=== PATIENT | female | born 1995 | race Caucasian/White ===

== ENCOUNTER 2016-10-21 11:19 | Emergency (ER) | payer MEDICAID ==
[~2016-10-21] VITALS: Ht 160 cm; Wt 73.5 kg
--- NOTE | 2016-10-21 11:53 | Urgent Treatment Center Report ---
History of Present Issue Date/Time Seen by Provider 10/21/16 1144 Visit Reason Pt arrived:Walked Presenting Problem:PT C/O LOWER ABD CRAMPING AND HEAVY BLEEDING. PT ADVISES THAT THE PAIN WOKE HER UP OUT OF A SLEEP LAST NIGHT Location if Accident: Onset of symptoms date/time:/ or onset unknown for:MEDICAL HX UNKNOWN Have you (or family members/close friends) recently traveled outside the [place]? N If Yes, where/when: Have you had exposure to infectious disease within the past month? TB? Other? Specify: Patient states that last night she was awoke with sharp abdominal cramping in her right lower abdomen, states that she felt a sharp pain then relief but then had some heavy bleeding. State that she feels better now still bleeding but not real heavy and now the pain is gone. States that she called Dr. Shen office OBGYN and they told her to come in here and get checked. ALLERGIES Coded Allergies: No Known Allergies (10/21/16) History Medical History General CAD? No Angina: No SC: No Hypertension? No Hyperlipidemia? No CHF? No DVT? No PE? No COPD? No Asthma? No Anemia? No GERD? No Gastric ulcers? No GI Bleed? No Hernia? No Thyroid Problems? No Hypothyroidism? No CVA? No Seizures? No Diabetes? No Renal Insuffiency? No UTI? No Stones? No BPH? No GB Disease: No Nephritic Syndrome? No Asplenia? No Hepatitis? No Sickle Cell Disease? No Arthritis? No Migraines? No Cataracts? No Glaucoma? No MRSA? No HIV? No TB? No Anxiety? No Depression? No Cancer? No More? No Immunization HX DT/Tetanus Unknown Surgical Hx Previous Surgery?N Social History Smoking Hx Smoker: Current Every Day Smoker Tobacco: Yes Type Cigarettes Alcohol Alcohol: No Review of Systems All Other Systems Reviewed and Negative Comment Last night had sharp pain in her lower abdomen, after pain hit she felt a "pop like feeling" and pain was gone and she had a little eppisode of heavy vaginal bleeding. States that she is currently menstrating at this time Physical Exam Vital Signs Vital Signs Date Time Temp Pulse Resp B/P Pulse O2 O2 Flow FiO2 Ox Delivery Rate 10/21 1135 98.3 93 18 135/86 97 General Appearance normal appearance, WD/WN, no apparent distress Respiratory Status Yes: trachea midline, chest symmetrical, non tender chest. No: respiratory distress. 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 No Results/Orders Laboratory Tests 10/21/16 1202: WBC 4.8, RBC 4.64, Hgb 15.6, Hct 45.4, MCV 97.8, RDW 13.0, Plt Count 184, MPV 6.8 L, Gran % 68.5, Gran # 3.3, Lymphocytes % 25.8, Monocytes % 3.9, Eosinophils % 1.4, Basophils % 0.3, Lymphocytes # 1.2, Monocytes # 0.2, Eosinophils # 0.1, Basophils # 0.0, PUBS MCHC 34.4, MCH 33.6 H 10/21/16 1149: Urine Color YELLOW, Urine Appearance Clear, Urine pH 6.5, Ur Specific [place] 1.015, Urine Protein NEGATIVE, Urine Ketones NEGATIVE, Urine Blood 2+ H, Urine Nitrate POSITIVE H, Urine Bilirubin NEGATIVE, Urine Urobilinogen 0.2, Ur Leukocyte Esterase NEGATIVE, Urine Glucose NEGATIVE, Urine Test NEGATIVE Orders Procedure Date/time Status CBC WITH AUTO DIFF 10/21 1202 Complete [facility] URINE 10/21 1149 Complete [facility] URINE DIPSTICK 10/21 1149 Complete Progress [facility] Progress Notes 1 Date 10/21/16 Time 1235 Comment Ua and UCG done to rule out and UTI. both negative result. Awaiting lab to assess Hemoglobin and Hematocrit. [facility] Progress Notes 2 Date 10/21/16 Time 1240 Comment Patient lab result back, Hemocult and Hematocrit within normal range, Patient advised to follow up with family doctor for possible prescribing of control to control symptoms Departure Departure Time of Disposition 1242 Disposition DC Home or Self Care(routine) Clinical Impression Primary Impression: Ovarian cyst Qualifiers: Laterality: right Qualified Code: N83.201 - Unspecified ovarian cyst, right side Condition STABLE Referrals Semaj BECKETT,Zachary Jama: Tomorrow-Call Office call for appointment if no improvement of symptoms -or increased bleeding 2-3 days Dev BECKETT,Rashad Shell Additional Instructions Follow up with family doctor Return if needed Over the counter Motrin or TYlenol as needed for pain Follow up with OBGYN as advised Discharge Counseling Counseled pt/family regarding diagnosis, test results, home care, follow up needs at [phone]
--- NOTE | 2016-10-21 11:53 | Urgent Treatment Center Report ---
History of Present Issue Date/Time Seen by Provider 10/21/16 1144 Visit Reason Pt arrived:Walked Presenting Problem:PT C/O LOWER ABD CRAMPING AND HEAVY BLEEDING. PT ADVISES THAT THE PAIN WOKE HER UP OUT OF A SLEEP LAST NIGHT Location if Accident: Onset of symptoms date/time:/ or onset unknown for:MEDICAL HX UNKNOWN Have you (or family members/close friends) recently traveled outside the [place]? N If Yes, where/when: Have you had exposure to infectious disease within the past month? TB? Other? Specify: Patient states that last night she was awoke with sharp abdominal cramping in her right lower abdomen, states that she felt a sharp pain then relief but then had some heavy bleeding. State that she feels better now still bleeding but not real heavy and now the pain is gone. States that she called Dr. Shen office OBGYN and they told her to come in here and get checked. ALLERGIES Coded Allergies: No Known Allergies (10/21/16) History Medical History General CAD? No Angina: No PR: No Hypertension? No Hyperlipidemia? No CHF? No DVT? No PE? No COPD? No Asthma? No Anemia? No GERD? No Gastric ulcers? No GI Bleed? No Hernia? No Thyroid Problems? No Hypothyroidism? No CVA? No Seizures? No Diabetes? No Renal Insuffiency? No UTI? No Stones? No BPH? No GB Disease: No Nephritic Syndrome? No Asplenia? No Hepatitis? No Sickle Cell Disease? No Arthritis? No Migraines? No Cataracts? No Glaucoma? No MRSA? No HIV? No TB? No Anxiety? No Depression? No Cancer? No More? No Immunization HX DT/Tetanus Unknown Surgical Hx Previous Surgery?N Social History Smoking Hx Smoker: Current Every Day Smoker Tobacco: Yes Type Cigarettes Alcohol Alcohol: No Review of Systems All Other Systems Reviewed and Negative Comment Last night had sharp pain in her lower abdomen, after pain hit she felt a "pop like feeling" and pain was gone and she had a little eppisode of heavy vaginal bleeding. States that she is currently menstrating at this time Physical Exam Vital Signs Vital Signs Date Time Temp Pulse Resp B/P Pulse O2 O2 Flow FiO2 Ox Delivery Rate 10/21 1135 98.3 93 18 135/86 97 General Appearance normal appearance, WD/WN, no apparent distress Respiratory Status Yes: trachea midline, chest symmetrical, non tender chest. No: respiratory distress. 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 No Results/Orders Laboratory Tests 10/21/16 1202: WBC 4.8, RBC 4.64, Hgb 15.6, Hct 45.4, MCV 97.8, RDW 13.0, Plt Count 184, MPV 6.8 L, Gran % 68.5, Gran # 3.3, Lymphocytes % 25.8, Monocytes % 3.9, Eosinophils % 1.4, Basophils % 0.3, Lymphocytes # 1.2, Monocytes # 0.2, Eosinophils # 0.1, Basophils # 0.0, PUBS MCHC 34.4, MCH 33.6 H 10/21/16 1149: Urine Color YELLOW, Urine Appearance Clear, Urine pH 6.5, Ur Specific [place] 1.015, Urine Protein NEGATIVE, Urine Ketones NEGATIVE, Urine Blood 2+ H, Urine Nitrate POSITIVE H, Urine Bilirubin NEGATIVE, Urine Urobilinogen 0.2, Ur Leukocyte Esterase NEGATIVE, Urine Glucose NEGATIVE, Urine Test NEGATIVE Orders Procedure Date/time Status CBC WITH AUTO DIFF 10/21 1202 Complete [facility] URINE 10/21 1149 Complete [facility] URINE DIPSTICK 10/21 1149 Complete Progress [facility] Progress Notes 1 Date 10/21/16 Time 1235 Comment Ua and UCG done to rule out and UTI. both negative result. Awaiting lab to assess Hemoglobin and Hematocrit. [facility] Progress Notes 2 Date 10/21/16 Time 1240 Comment Patient lab result back, Hemocult and Hematocrit within normal range, Patient advised to follow up with family doctor for possible prescribing of control to control symptoms Departure Departure Time of Disposition 1242 Disposition [place] Home or Self Care(routine) Clinical Impression Primary Impression: Ovarian cyst Qualifiers: Laterality: right Qualified Code: N83.201 - Unspecified ovarian cyst, right side Condition STABLE Referrals Semaj BECKETT,Zachary Jama: Tomorrow-Call Office call for appointment if no improvement of symptoms -or increased bleeding 2-3 days Dev BECKETT,Rashad Shell Additional Instructions Follow up with family doctor Return if needed Over the counter Motrin or TYlenol as needed for pain Follow up with OBGYN as advised Discharge Counseling Counseled pt/family regarding diagnosis, test results, home care, follow up needs at [phone]
[2016-10-21 12:14] LABS: UTC URINE PREGNANCY NEGATIVE (NEG)
[2016-10-21 12:15] LABS: URINE BILIRUBIN - DIPSTICK NEGATIVE (NEG); URINE BLOOD 2+ (NEG)
[2016-10-21 12:37] LABS: HEMOGLOBIN 15.6 g/dL (12.2-16.2); LYMPH # 1.2 K/mm3 (0.7-4.5); LYMPH % 25.8 % (10-50.0)
[2016-10-21 12:49] VITALS: BP 135/86
== END 2016-10-21 12:49 | disposition home or self-care (01) ==
LOC: UTC 11:19
PROVIDERS: Nurse Practitioner
DX: N83.201 Unspecified ovarian cyst, right side (principal)

== ENCOUNTER 2016-11-10 22:24 | Emergency (ER) | payer MEDICAID ==
[~2016-11-10] VITALS: Ht 160 cm; Wt 73.5 kg
--- OUTSIDE RECORDS SUMMARY | 2016-11-10 22:29 | External Medical Summary Rpt ---
Author Author , Organization [employer] Address Unknown Phone Unavailable Care Team Providers Care Floor Hand Name Role Phone ALINA HONEYCUTT, ALINA Unavailable Unavailable TANGELA BRANDSER, KIM A, Unavailable Unavailable BRANDSER, KIM A JUNG, DEL A, Unavailable Unavailable JUNG, DEL A [facility] Un[facility], [facility] SHAI JAM, SHAI JAM Unavailable Unavailable SHAI JAM, SHAI JAM Unavailable Unavailable BRUNA GUILHERME, Unavailable Unavailable BRUNA GUILHERME [facility] Unavailable Unavailable [place], [facility] Unavailable Unavailable [place], [facility] SOLOMONELBA GALICIA [facility]OM[facility] Unavailable Unavailable MAR KALFAS, ROBERT C, Unavailable Unavailable KALFAS, ROBERT C [facility] Un[facility], [facility] Unavailable Unavailable LAB, [facility] Unavailable Unavailable [facility], [facility] Unavailable [facility]available [facility], [facility], Unavailable Unavailable [facility], Unavailable Unavailable EDWARD MONTGOMERY JR, Unavailable Unavailable EDWARD MONTANA TRO, ROCK TRO Unavailable Unavailable KISHAN LUDWIG Unavailable Unavailable ANA MCCLELLAN, Unavailable Unavailable ANA HOLLEY MICHAEL G, Unavailable Unavailable MONICA LEI [facility], Unavailable Unavailable [facility] Unavailable Unavailable [facility] [address] [facility], [facility] Unavailable Unavailable [facility]ANS, [facility] Unavailable Unavailable [facility], [facility] [address], Unavailable Unavailable GABRIEL POLK SHELBY, Unavailable Unavailable LORIN SPEARS [facility] Unavailable Unavailable #5, [facility] Unavailable [facility]available DEPT [facility], [facility] Unavailable Unavailable [facility], [facility] Purpose Continuity of Care Document - 08-07-2007 through 2016 Problems Code Diagnosis DOS Provider Status [id number] ACUTE 05-04-2016 [facility] J029 ACUTE 05-04-2016 [facility] UNSPECIFIED R110 NAUSEA 05-04-2016 [facility] R599 ENLARGED 05-04-2016 [facility] UNSPECIFIED [id number] ENCOUNTER 03-08-2016 [facility] INITIAL [facility] N CONTRACEPTI VE UNS [id number] ENCOUNTER 03-02-2016 [place] PRESCRIPTIO [facility] N EMERGENCY CENTER CONTRACEPTI ON Z3189 ENCOUNTER 03-02-2016 [place] FOR OTHER [facility] PROCREATIVE CENTER MANAGEMENT R509 FEVER 09-16-2015 [facility] UNSPECIFIED [facility] CENTER N939 ABNORMAL 06-18-2015 [facility]FFEE GRINDER BLEEDING ST UNSPECIFIED R102 PELVIC AND 06-18-2015 ST PERINEAL [facility] PAIN [facility] [facility] 6143 ACUTE 12-25-2013 [facility] DEPT PELVIC WALLY CELLULITIS V2549 SURVEILLANC 12-25-2013 [facility] E OTH PREV [facility] PRSC [facility] DEPT CONTRACEPT WALLY METHOD 6250 DYSPAREUNIA 10-15-2013 [facility] 6149 UNSPEC 09-11-2013 [facility] INFLAM DISTRICT DISEASE FE [facility] DEPT PELVIC WALLY ORGANS&TISS UES V2689 OTHER 09-11-2013 [facility] SPECIFIED DISTRICT PROCREATIVE [facility] DEPT MANAGEMENT WALLY 7336 TIETZES 02-12-2013 [facility] 2662 OTHER 01-11-2012 JENNI LUNDY B-[facility]PLEX HE[facility] DEFICIENCIE CENTER S 2512 HYPOGLYCEMI 12-29-2011 [facility] UNSPECIFIED PHYSICIANS 7962 ELEVATED BP 12-29-2011 READING [facility] WITHOUT DX PHYSICIANS HYPERTENSIO N V2541 SURVEILLANC 10-22-2011 [facility] E PREV DISTRICT PRESCRIBED [facility] DEPT CONTRACEPT WALLY PILL 463 ACUTE 09-27-2011 TONSILLITIS [facility] 55884 UNSPECIFIED 08-17-2011 [facility] VULVOVAG[facility]I TIS 3671 MYOPIA 08-12-2011 SHAI JAM 37465 NONGONOCOCC 07-27-2011 J[facility] U[facility] DUE CHLAMYDTRAC HOMATIS V7231 ROUTINE 07-27-2011 PATHOLOGY & GYNECOLOGIC CYTOLOGY AL LAB EXAMINATION 9140 HAND NO 06-04-2011 [facility] ALONE [facility] CTR ABRAS/FRIC BURN W/O INF V2509 OT GENERAL 02-19-2011 [facility] HEALTH CNSL&ADVICE CENTER CONTRACEPT MANAGEMENT 97922 MIGRAINE 10-26-2010 ST UNSP W/O [facility] INTRACT W/O PHYSICIANS STATUS MIGRAINOSUS 4619 ACUTE 09-04-2010 SINUSITIS, [facility] UNSPECIFIED PHYSICIANS 5589 OTH&UNSPEC 08-04-2010 NONINFECTIO [facility] US [facility]IANS GASTROENTER ITIS&COLITI S V1582 PERS HX 06-30-2010 [facility] TOBACCO USE HEALTH PRESENTING CENTER HAZARDS HEALTH V7643 SCREENING 06-30-2010 [facility] FOR HEALTH MALIGNANT CENTER NEOPLASM OF THE SKIN V2502 GENERAL 10-21-2009 [facility] CNSL CO HEALTH INITIATION CENTER OTH CONTRACEPT MEASURES V2501 GENERAL 02-25-2009 DHS/CO COUNSELING HEALTH PRESCRIPTIO CENTRAL N ORAL BANK ACCT CONTRACEPTS 3829 UNSPECIFIED 10-01-2008 PATIENT OTITIS FIRST [facility] MEDIA 74884 UNSPECIFIED 09-17-2008 PATIENT INFECTIVE [facility] OTITIS EXTERNA 075 INFECTIOUS 06-27-2008 PATIENT MONONUCLEOS FIRST PHYS IS 7840 HEADACHE 03-06-2008 PATIENT FIRST PHYS 33824 OTHER 03-05-2008 ST SPECIFIED [facility] CARDIAC [facility] DYSRHYTHMIA S 7802 SYNCOPE AND 03-05-2008 ST COLLAPSE [facility] 60625 NONSPECIFIC 03-05-2008 ST ABNORMAL [facility] ELECTROCARD [facility] CTR IOGRAM V717 OBSERVATION 03-05-2008 ST FOR [facility] SUSPECTED MED CTR CARDIOVASCU LAR DISEASE 4659 ACUTE URIS 11-15-2007 PATIENT OF FIRST PHYS UNSPECIFIED SITE 7030 INGROWING 08-07-2007 [facility] POLK Medications Na ND Rx Da Fi Fi Am Da Di Ph RX Ph St me C No te ll ll ou ys ag ar # ys at rm s nt no ma ic us Or Da si cy ia de te s n re d OX 42 02 03 20 3 00 KE Ac YC 85 -1 -1 .0 00 NT ti OD 80 6- 7- 00 00 UC ve ON 10 20 20 87 [place] -A 30 17 17 28 CE 1 19 CV TA S AL PH NO AR PH MA EN CY 7. LL 5- C, 32 5 DB A CV S PH AR MA CY #0 54 37 CH 00 02 03 47 16 00 KE Ac LO 11 -1 -1 3. 00 NT ti RH 62 6- 7- 00 00 UC ve EX 00 20 20 0 87 [place] ID 11 17 17 28 IN 6 20 CV E S 0. PH 12 AR % MA RI CY NS E LL C, DB A CV S PH AR MA CY #0 54 37 PE 00 02 03 30 8 00 KE Ac NI 09 -1 -1 .0 00 NT ti CI 31 6- 7- 00 00 UC ve LL 17 20 20 87 [place] IN 21 17 17 28 0 21 CV VK S PH 25 AR 0 MA MG CY TA LL BL C, ET DB A CV S PH AR MA CY #0 54 37 AM 00 04 04 0 14 7 76 SC Ac OX 78 -2 -2 .0 20 RYAN ti -C 11 2- 2- 00 35 CK ve LA 83 20 20 V 12 11 11 BR 50 0 IA 0- N 12 5 MG TA BL ET TO 68 04 04 2 30 30 76 SC Ac PI 46 -1 -1 .0 16 RYAN ti RA 20 8- 8- 00 65 CK ve MA 10 20 20 TE 81 11 11 BR 0 IA 25 N MG TA BL ET PA 68 10 03 5 30 30 74 SC Ac RO 38 -2 -2 .0 61 RYAN ti XE 20 5- 5- 00 15 CK ve TI 09 20 20 NE 70 10 11 BR 6 IA HC N L 10 MG TA BL ET AM 00 02 02 0 14 7 75 SC Ac OX 78 -2 -2 .0 70 RYAN ti -C 11 5- 5- 00 10 CK ve LA 83 20 20 V 12 11 11 BR 50 0 IA 0- N 12 5 MG TA BL ET PA 68 10 01 5 30 30 74 SC Ac RO 38 -2 -0 .0 61 RYAN ti XE 20 5- 5- 00 15 CK ve TI 09 20 20 NE 70 10 11 BR 6 IA HC N L 10 MG TA BL ET PA 68 10 10 5 30 30 74 SC Ac RO 38 -2 -2 .0 61 RYAN ti XE 20 5- 7- 00 15 CK ve TI 09 20 20 NE 70 10 10 BR 6 IA HC N L 10 MG TA BL ET PA 68 10 10 0 15 15 74 SC Ac RO 38 -0 -0 .0 42 RYAN ti XE 20 5- 5- 00 78 CK ve TI 09 20 20 NE 70 10 10 BR 6 IA HC N L 10 MG TA BL ET NE 24 03 03 00 10 7 TO 66 SC Ac OM 20 -1 -2 .0 TA 78 RYAN ti YC 80 0- 6- 00 L 45 CK ve IN 63 20 20 CA -P 11 09 09 RE BR OL 0 IA YM PH N YX AR IN MA -H CY C EA #[address] AM 00 03 03 00 20 10 TO 66 SC Ac OX 09 -1 -2 .0 TA 78 RYAN ti -C 32 0- 6- 00 L 44 CK ve LA 27 20 20 CA V 43 09 09 RE BR 50 4 IA 0- PH N 12 AR 5 MA MG CY TA #5 BL ET PA 68 10 02 00 30 30 TO 65 SC Ac RO 38 -0 -2 .0 TA 48 RYAN ti XE 20 3- 6- 00 L 15 CK ve TI 09 20 20 CA NE 70 08 09 RE BR 6 IA HC PH N L AR 10 MA CY MG #5 TA BL ET PA 68 10 11 01 30 30 PH 65 SC Ac RO 38 -0 -2 .0 AR 48 RYAN ti XE 20 3- 0- 00 MC 15 CK ve TI 09 20 20 AR NE 70 08 08 E BR 6 PH IA HC AR N L MA 10 CY MG TA BL ET PA 68 10 10 00 30 30 PH 65 SC Ac RO 38 -0 -0 .0 AR 48 RYAN ti XE 20 3- 9- 00 MC 15 CK ve TI 09 20 20 AR NE 70 08 08 E BR 6 PH IA HC AR N L MA 10 CY MG TA BL ET AM 00 05 05 00 20 10 TO 64 No Ac OX 78 -0 -2 .0 TA 45 t ti IC 12 7- 2- 00 L 53 Av ve IL 61 20 20 CA ai LI 30 08 08 RE la N 5 bl 50 PH e 0 AR MG MA CY CA PS #5 UL E Results Labs Lab Lab Date Result Refere Interp Status Commen Order Detail nces retati t Range on CHLAMYDIA AND GONORRHEA TESTING (03-08-2016 09:30) Chlamyd POSITIV complet ia 016 E ed trachom 09:30 atis rRNA [Presen ce] in Unspeci fied specime n by Probe & target amplifi cation method Neisser NEGATIV complet ia 016 E ed gonorrh 09:30 oeae rRNA [Presen ce] in Unspeci fied specime n by Probe & target amplifi cation method CHLAMYDIA AND GONORRHEA TESTING (03-08-2016 09:30) COLLECT ALCIRA complet OR 016 SON ed 09:30 ETHNICI WHITE, complet TY 016 NON-HIS ed 09:30 PANIC KIT 03-08- complet EXPIRAT 016 6 ed ION 09:30 DATE SYMPTOM NO complet S 016 ed 09:30 REASON REVISIT complet FOR 016 /ANNUAL ed REQUEST 09:30 FAMILY PLANNIN G VISIT SPECIME FEMALE complet N 016 ENDOCER ed SOURCE 09:30 VICAL PREGNAN NO complet T 016 ed 09:30 CHART N/A complet NUMBER 016 ed 09:30 Chlamyd Pending complet ia 016 ed trachom 09:30 atis rRNA [Presen ce] in Unspeci fied specime n by Probe & target amplifi cation method Neisser Pending complet ia 016 ed gonorrh 09:30 oeae rRNA [Presen ce] in Unspeci fied specime n by Probe & target amplifi cation method CHLAMYDIA AND GONORRHEA TESTING (08-30-2012 09:30) Chlamyd NEGATIV complet ia 013 E ed trachom 09:30 atis rRNA [Presen ce] in Unspeci fied specime n by Probe & target amplifi cation method Neisser NEGATIV complet ia 013 E ed gonorrh 09:30 oeae rRNA [Presen ce] in Unspeci fied specime n by Probe & target amplifi cation method CHLAMYDIA AND GONORRHEA TESTING (08-30-2012 09:30) COLLECT NA complet OR 013 ed 09:30 ETHNICI 08-30- WHITE, complet TY 013 NON-HIS ed 09:30 PANIC KIT 08-30-03-10-13 complet EXPIRAT 013 ed ION 09:30 DATE SYMPTOM NO complet S 013 ed 09:30 REASON REVISIT complet FOR 013 /ANNUAL ed REQUEST 09:30 FAMILY PLANNIN G VISIT SPECIME URINE complet N 013 ed SOURCE 09:30 PREGNAN NO complet T 013 ed 09:30 CHART 08-30-2 NA complet NUMBER 013 ed 09:30 Chlamyd 08-30-2 Pending complet ia 013 ed trachom 09:30 atis rRNA [Presen ce] in Unspeci fied specime n by Probe & target amplifi cation method Neisser 08-30- Pending complet ia 013 ed gonorrh 09:30 oeae rRNA [Presen ce] in Unspeci fied specime n by Probe & target amplifi cation method Procedures Procedure DOS Code Location Performer Comment IAADIADOO 71658 COLD [facility] spring ST[facility]PT[facility]RGENT [facility]RGENT CCUS CARE CARE GROUP A WET Q0111 [facility] [facility] REUBEN 6 N CO N CO INCL PREP [facility] VAGINAL [facility] CERV/SKIN SPECIMENS IADNA 73760 [facility] [facility] CHLAMYDIA 6 N CO N CO [facility] TRACHOMAT [facility] IS AMPLIFIED PROBE TQ AMINES 92725 [place] VAGINAL 6 N CO N CO FLUID [facility] QUALITATI [facility] VE IADNA 00072 [place] P[place] NEISSERIA 6 N CO N CO [facility] GONORRHOE CENTER [place] AE AMPLIFIED PROBE TQ CONTRACEP S4993 [place] TIVE 6 N CO N CO PILLS FOR [facility] [place] CONTROL CONTRACEP S4993 P[place] TIVE 6 N CO N CO PILLS FOR [facility] CONTROL URINE 10047 [place] [facility] 6 N CO N CO TEST [facility] VISUAL [facility] COLOR CMPRSN METHS IADNA [address] NEISSERIA 5 [facility] CTR MED CTR GONORRHOE [facility] AE AMPLIFIED PROBE TQ GONADOTRO [address] [facility] QUALITATI VE COLLECTIO [address] N VENOUS 5 [facility] BLOOD MED CTR MED CTR VENIPUNCT [facility] [facility] URE IAADIADOO [address] [facility] MED CTR MED CTR [facility] [address] [facility] [facility] VAGINALIS IADNA [address] CHLAMYDIA 5 [facility] CTR MED CTR TRACHOMAT [facility] IS AMPLIFIED PROBE TQ INJECTION J1050 [facility] WALLY E ACETATE 1 MG INJECTION J1050 [facility] WALLY E ACETATE 1 MG IADNA 69342 [facility]IA [facility] DE[facility] TRACHOMAT WALLY WALLY IS AMPLIFIED PROBE TQ IADNA 76721 [facility] NEISS[facility]IA [facility] GONORRHOE WALLY WALLY AE AMPLIFIED PROBE TQ INJECTION J1050 [facility] MEDROXYPR [facility] WALLY E ACETATE 1 MG INJECTION J1050 [facility] MEDROXYPR [facility] WALLY E ACETATE 1 MG INJECTION J1050 [facility] WALLY E ACETATE 1 MG IADNA 64707 [facility] CHLAMYDIA [facility] WALLY WALLY IS AMPLIFIED PROBE TQ IADNA 06280 [facility] NEISSERIA [facility] DEPT GONORRHOE WALLY WALLY AE AMPLIFIED PROBE TQ URINE 98979 JENNI ARTEAGA 2 ON LICENSE OF [facility] HEALTH TEST CENTER CENTER VISUAL COLOR CMPRSN METHS INJ J1055 JENNI ARTEAGA MDRXYPRGE 2 ON LICENSE OF [facility] HEALTH STRON CENTER CENTER ACTAT CNTRACPT USE 150 MG CONTRACEP S4993 [facility] TIVE 2 DISTRICT DISTRICT PILLS FOR [facility] WALLY CONTROL URNLS DIP 37487 JENNI MENJIVARON 2 ON LICENSE OF [facility] HEALTH STICK/TAB CENTER CENTER LET RGNT NON-AUTO W/O MICRSCP FRAMES V2020 SHAI GARCIA PURCHASES 2 SPHERE V2100 SHAI GARCIA SINGLE 2 [place]ISION [place] +/- 4.00 PER LENS DETERMINA 58611 SHAI GARCIA TION 2 REFRACTIV E STATE OPHTH 54585 SHAI GARCIA MEDICAL 2 XM&EVAL COMPRE NEW PT 1/> VST FITTING 57013 SHAI GARCIA SPECTACLE 2 S XCPT APHAKIA MONOFOCAL LENS V2784 SHAI GARCIA POLYCARBO 2 BISI OR EQUAL ANY INDEX PER LENS WET Q0111 JENNI ARTEAGA REUBEN 2 ON LICENSE OF [facility] HEALTH INCL PREP CENTER CENTER VAGINAL CERV/SKIN SPECIMENS IADNA 37111 JENNI ARTEAGA CHLAMYDIA 2 [facility] CENTER TRACHOMAT IS AMPLIFIED PROBE TQ CYTP 00984 PATHOLOGY PICKLESIM CERV/VAG 2 & ER JR FREDA AUTO THIN CYTOLOGY LAYER LAB PREP MNL SCREEN INJ J1055 JENNI ARTEAGA MDRXYPRGE 2 ON LICENSE OF [facility] HEALTH STRON CENTER CENTER ACTAT CNTRACPT USE 150 MG ALL Q0112 JENNI ARTEAGA POTASSIUM 2 [facility] C[facility] HYDROXIDE PREPARATI ONS URNLS DIP 92684 JENNI ARTEAGA 2 ON LICENSE OF [facility] HEALTH STICK/TAB CENTER CENTER LET RGNT NON-AUTO W/O MICRSCP SMR PRIM 38732 JENNI ARTEAGA SRC WET 2 [facility] C[facility] NFCT AGT IADNA 59751 JENNI ARTEAGA NEISSERIA 2 ON LICENSE OF [facility] HEALTH [place] [facility] GONORRHOE AE AMPLIFIED PROBE TQ AMINES 03263 JENNI ARTEAGA VAGINAL 2 [facility] FLUID CENTER CENTER QUALITATI VE PH BODY 13236 JENNI ARTEAGA FLUID NOT 2 [facility] ELSEWHERE SPECIFIED INJ J1055 JENNI ARTEAGA MDRXYPRGE 1 [facility] [place] [facility] ACTAT CNTRACPT USE 150 MG INJ J1055 JENNI ARTEAGA MDRXYPRGE 1 [facility] STRON CENTER CENTER ACTAT CNTRACPT USE 150 MG INJ J1055 JENNI ART[facility]AGA MDRXYPRGE 1 [facility] ACTAT CNTRACPT USE 150 MG INJ J1055 JENNI ARTEAGA MDRXYPRGE 1 [facility] ACTAT CNTRACPT USE 150 MG INJ J1055 JENNI ARTEAGA MDRXYPRGE 0 [facility] ACTAT CNTRACPT USE 150 MG INJ J1055 [place] MDRXYPRGE 0 N CO N [facility] ACTAT CENTER [place] CNTRACPT USE 150 MG IADNA 63409 [place] P[place] NEISSERIA 0 N CO N [facility] GONORRHOE CENTER [place] AE AMPLIFIED PROBE TQ IADNA 84485 [place] CHLAMYDIA 0 N CO N [facility] TRACHOMAT CENTER [place] IS AMPLIFIED PROBE TQ INJ J1055 [place] MDRXYPRGE 0 N CO N [facility] ACTAT [facility]ENTER [place] CNTRACPT USE 150 MG INJ J1055 [place] MDRXYPRGE 0 N CO N [facility] [place] CNTRACPT USE 150 MG BLOOD 01765 [place] COUNT 0 N CO N DC HEMOGLOBI [facility] N [facility] CONTRACEP S4993 DHS/CO [facility] TIVE 9 HEALTH N CO PILL[facility] FOR [facility] BANK ACCT CENTER CONTROL CONTRACEP S4993 DHS/CO [place] TIVE 9 HEALTH N CO PILLS FOR [facility] B[facility] ACCT CENTER CONTROL COMPREHEN 57563 PATIENT KALFAS, SIVE 8 FIRST ROBERT C METABOLIC PHYS PANEL URNLS DIP [address] STICK/TAB EAST EAST LET RGNT AUTO W/O MICROSCOP Y CUL 88012 [facility] PRSMPTV [address] [place] [address] PTHGNC [facility] ORGANISM SCRN W/COLONY ESTIMJ BASIC 50714 [facility] METABOLIC [address] [place] [address] PANEL [facility] CALCIUM TOTAL BLOOD [address] COMPLETE [facility] AUTO&AUTO DIFRNTL WBC IAADIADOO [address] STREPTOCO [facility] CCUS GROUP A HETEROPHI [address] ANTIBODIE [facility] S SCREEN ECG 60894 [facility], ROUTINE 8 [facility] DEL A ECG MED CTR W/LEAST 12 LDS [place] [address] RADIOLOGY BRANDSER, HEAD/BRAI 8 KIM A N W/O ASSOCIATE CONTRAST S PSC MATERIAL Encounters Encounter Start End Date Code Location Performer Type Date OFFICE 55902 COLD OUTPATIEN 6 6 SPRING T NEW 45 URGENT MINUTES CARE PERIODIC 36484 [place] PREVENTIV 6 6 N CO N CO E MED EST [facility] PATIENT CENTER CENTER 18-39 YRS OFFICE 95065 [place] P[place] OUTPATIEN 6 6 N CO N CO T VISIT [address] CENTER MINUTES OFFICE 91637 [place] P[place] OUTPATIEN 6 6 N CO N CO T NEW 20 [facility] - 5 5 [facility] OUT[facility] MED [facility] T COFFEE [facility] [facility] EMERGENCY 46303 COMPASS BRACKEN 5 5 EMERGENCY TANGELA DEPARTMEN T VISIT PHYSICIAN MODERATE S SEVERITY EMERGENCY [address]3082 ST 5 5 [facility] DEPARTMEN MED CTR T VISIT COFFEE GRINDER ST LOW/MODER SEVERITY OFFICE 13361 [facility] 4 [facility] 15 WALLY WALLY MINUTES OFFICE 66620 [place] [facility] OUTPATIEN 4 4 MEDICAL MAR T NEW 30 SERV MINUTES FOUNDATIO OFFICE 53587 [facility] 4 4 [facility] DE[facility] 25 WALLY WALLY MINUTES OFFICE 56224 [facility] 4 4 [facility] T VISIT HLTH DEPT HLTH DEPT 15 WALLY WALLY MINUTES PERIODIC 65726 [facility] PREVENTIV 4 4 [facility] DISTRICT E MED EST HLTH DEPT HLTH DEPT PATIENT [facility] 18-[address] [facility] OUTPATIEN 3 3 [facility] ANTONELLA T VISIT 15 PHYSICIAN MINUTES S OFFICE 60826 [facility] 3 3 [facility] T VISIT HLTH DEPT HLTH DEPT 10 WALLY WALLY MINUTES OFFICE 96087 [facility] 3 3 [facility] T VISIT HLTH DEPT HLTH DEPT 10 [facility] WALLY MINUTES PERIODIC 51397 [facility] PREVENTIV 3 3 [facility] E MED EST HLTH DEPT HLTH DEPT PATIENT [facility] 18-39 YRS OFFICE 00490 [facility] 2 2 [facility] DISTRICT T VISIT HLTH DEPT HLTH DEPT 10 WALLY WALLY MINUTES OFFICE 54343 [facility] OUT[facility] 2 2 [facility] T VISIT HLTH DEPT HLTH DEPT 10 WALLY WALLY MINUTES OFFICE 56047 JENNI JENNI OUTPATIEN 2 2 [facility] CENTER [address]ES [address] [facility] OUTPATIEN 2 2 [facility] ANTONELLA T VISIT 25 PHYSICIAN MINUTES S OFFICE 42547 [facility] 2 2 [facility] T VISIT HLTH DEPT HLTH DEPT 15 WALLY WALLY MINUTES OFFICE 82715 [facility] OUTPATIEN 2 2 [facility] ANTONELLA T VISIT 15 PHYSICIAN MINUTES S OFFICE 16143 JENNI JENNI OUTPATIEN 2 2 [facility] CENTER 25 MINUTES OFFICE 90011 JENNI JENNI OUTPATIEN 2 2 [facility] V[facility]IT CENTER CENTER 25 MINUTES PERIODIC 82288 JENNI ARTEAGA PREVENTIV 2 2 CO HEALTH [facility] E MED EST CENTER CENTER PATIENT 12-17YRS EMERGENCY [address] [facility] TRO 1 1 [facility] DEPARTMEN MED CTR T VISIT LOW/MODER SEVERITY OFFICE 72356 JENNI ARTEAGA OUTPATIEN 1 1 [facility] T VISIT CENTER CENTER 15 MINUTES OFFICE 04738 JENNI ARTEAGA OUTPATIEN 1 1 [facility] T VISIT CENTER CENTER 10 MINUTES OFFICE 93670 JENNI ARTEAGA OUTPATIEN 1 1 [facility] T VISIT CENTER CENTER [address] [facility] OUT[facility] 1 1 [facility] ANTONELLA T VISIT 15 PHYSICIAN MINUTES S OFFICE 38488 JENNI ARTEAGA OUTPATIEN 1 1 [facility] [address]ES [address] [facility] OUTPATIEN 1 1 [facility] ANTONELLA T VISIT 15 PHYSICIAN MINUTES S [address] [facility] OUTPATIEN 1 1 [facility] ANTONELLA T VISIT 15 PHYSICIAN MINUTES S INITIAL 89403 JENNI ARTEAGA PREVENTIV 0 0 [facility] MEDICINE NEW PT AGE 12-17 YR OFFICE 38523 [facility] OUTPATI[facility] 0 0 N [facility] 15 [facility]ENTER MINUTES OFFICE 74717 [facility] OUTPATIEN 0 0 N [facility] 10 CENTER CENTER MINUTES OFFICE 58224 [facility] OUTPATIEN 0 0 N CO N [facility] T VISIT [facility] 15 [facility]ENTER MINUTES OFFICE 36587 [facility] OUT[facility] 9 9 HEALTH N CO T VISIT [facility] 10 BANK ACCT CENTER MINUTES OFFICE 69123 [facility] OUTPATIEN 9 9 HEALTH N CO T NEW [facility] MINUTES [facility] ACCT CENTER OFFICE 68127 PATIENT KISHAN OUTKRISTINEEN 9 9 FIRST ANA T VISIT PHYS 15 MINUTES OFFICE 45614 PATIENT TORY OUTPATIEN 9 9 FIRST LORIN T VISIT PHYS 15 MINUTES OFFICE 28599 PATIENT KISHAN OUTULISES 8 8 FIRST ANA T VISIT PHYS 15 MINUTES OFFICE 28232 PATIENT ALLYN OUTPATIEN 8 8 FIRST ROBERT C T VISIT PHYS 25 MINUTES [facility] 8 8 [facility] T EMERGENCY 80559 EMERGENCY [facility] 8 8 [facility] PHYS T VISIT [facility] SEVERITY OFFICE 90147 PATIENT RAMILA HOLLEY 8 8 FIRST ANA T VISIT PHYS 25 MINUTES OFFICE 63643 PATIENT KISHAN OUTULISES 8 8 FIRST ANA T VISIT PHYS [address] [place], DEPT 8 8 TIERNEY VANEGAS VISIT MED CTR HIGH SEVERITY& THREAT FUNCJ OFFICE 00095 PATIENT RAMILA LEI 8 8 FIRST MONICA Johnson T VISIT PHYS 15 MINUTES OFFICE 54709 JAM POLK OUTULISES 8 8 GABRIEL RIOS T VISIT 10 MINUTES
--- OUTSIDE RECORDS SUMMARY | 2016-11-10 22:29 | External Medical Summary Rpt ---
Author Author , Organization [employer] Address Unknown Phone Unavailable Care Team Providers Care Appian Developer Name Role Phone ALINA HONEYCUTT, ALINA Unavailable Unavailable TANGELA BRANDSER, KIM A, Unavailable Unavailable BRANDSER, KIM A JUNG, DEL A, Unavailable Unavailable JUNG, DEL A [facility] Un[facility], [facility] SHAI JAM, SHAI JAM Unavailable Unavailable SHAI JAM, SHAI JAM Unavailable Unavailable BRUNA GUILHERME, Unavailable Unavailable BRUNA GUILHERME [facility] Unavailable Unavailable [place], [facility] Unavailable Unavailable [place], [facility] SOLOMONELBA GALICIA SOLOMON Unavailable Unavailable MAR KALFAS, ROBERT C, Unavailable Unavailable KALFAS, ROBERT C [facility], [facility] Unavailable Unavailable LAB, PATHOLOGY & CYTOLOGY LAB [facility] Unavailable Unavailable CENTER, [facility] Unavailable Unavailable [facility], [facility], Unavailable Unavailable [facility] E[facility], Unavailable Unavailable EDWARD MONTGOMERY JR, Unavailable Unavailable EDWARD MONTANA TRO, ROCK TRO Unavailable Unavailable KISHAN LUDWIG Unavailable Unavailable ANA MCCLELLAN, Unavailable Unavailable ANA HOLLEY MICHAEL G, Unavailable Unavailable MONICA LEI [facility], Unavailable Unavailable [facility] Unavailable Unavailable [facility], [facility] Unavailable Unavailable [facility]ANS, [facility] Un[facility] [address], Unavailable Unavailable GABRIEL POLK SHELBY, Unavailable Unavailable LORIN SPEARS [facility] Unavailable Unavailable #5, [facility] Unavailable [facility]available DEPT [facility], [facility] DEPT [facility] Unavailable [facility]available DEPT [facility], [facility] DEPT [facility] Purpose Continuity of Care Document - 08-07-2007 through 2016 Problems Code Diagnosis DOS Provider Status J0190 ACUTE 05-04-2016 [facility] SINUSITIS URGENT UNSPECIFIED CARE J029 ACUTE 05-04-2016 [facility] PHARYNGITIS URGENT CARE UNSPECIFIED R110 NAUSEA 05-04-2016 [facility] R599 ENLARGED 05-04-2016 [facility] LYMPH NODES URGENT CARE UNSPECIFIED J01796 ENCOUNTER 03-08-2016 [facility] IN[facility]IAL [facility] N CONTRACEPTI VE UNS [id number] ENCOUNTER 03-02-2016 [place] PRESCRIPTIO [facility] N EMERGENCY CENTER CONTRACEPTI ON Z3189 ENCOUNTER 03-02-2016 [place] FOR OTHER [facility] PROCREATIVE CENTER MANAGEMENT R509 FEVER 09-16-2015 [place] UNSPECIFIED [facility] CENTER N939 ABNORMAL 06-18-2015 [facility] VORTEX OPERATOR BLEEDING ST UNSPECIFIED R102 PELVIC AND 06-18-2015 ST PERINEAL [facility] PAIN [facility] CTR VORTEX OPERATOR ST 6143 ACUTE 12-25-2013 [facility] PARAMETRITI DISTRICT S AND [facility] DEPT PELVIC WALLY CELLULITIS V2549 SURVEILLANC 12-25-2013 [facility] E OTH PREV DISTRICT PRSC [facility] DEPT CONTRACEPT WALLY METHOD 6250 DYSPAREUNIA 10-15-2013 [facility] 6149 UNSPEC 09-11-2013 [facility] INFLAM DISTRICT DISEASE FE [facility] DEPT PELVIC WALLY ORGANS&TISS UES V2689 OTHER 09-11-2013 [facility] SPECIFIED DISTRICT PROCREATIVE [facility] DEPT MANAGEMENT WALLY 7336 TIETZES 02-12-2013 DISEASE [facility] 2662 OTHER 01-11-2012 JENNI LUNDY [facility]ICIEN[facility] C[facility] S 2512 HYPOGLYCEMI 12-29-2011 ABARBARATH UNSPECIFIED PHYSICIANS 7962 ELEVATED BP 12-29-2011 READING [facility] WITHOUT DX PHYSICIANS HYPERTENSIO N V2541 SURVEILLANC 10-22-2011 [facility] E PREV DISTRICT PRESCRIBED [facility] DEPT CONTRACEPT WALLY PILL 463 ACUTE 09-27-2011 TONSILLITIS [facility] 38376 UNSPECIFIED 08-17-2011 [facility] [place] VULVOVAGINI TIS 3671 MYOPIA 08-12-2011 SHAI JAM 84644 NONGONOCOCC 07-27-2011 J[facility] URETHRITIS CENTER DUE CHLAMYDTRAC HOMATIS V7231 ROUTINE 07-27-2011 PATHOLOGY & GYNECOLOGIC CYTOLOGY AL LAB EXAMINATION 9140 HAND NO 06-04-2011 ST [facility] ALONE [facility] ABRAS/FRIC BURN W/O INF V2509 OT GENERAL 02-19-2011 [facility] HEALTH CNSL&ADVICE CENTER CONTRACEPT MANAGEMENT 83570 MIGRAINE 10-26-2010 ST UNSP W/O [facility] INTRACT W/O PHYSICIANS STATUS MIGRAINOSUS 4619 ACUTE 09-04-2010 SINUSITIS, [facility] UNSPECIFIED PHYSICIANS 5589 OTH&UNSPEC 08-04-2010 NONINFECTIO [facility] US [facility] GASTROENTER ITIS&COLITI S V1582 PERS HX 06-30-2010 [facility] TOBACCO USE HEALTH PRESENTING CENTER HAZARDS HEALTH V7643 SCREENING 06-30-2010 [facility] MALIGNANT CENTER NEOPLASM OF THE SKIN V2502 GENERAL 10-21-2009 [facility] CNSL CO HEALTH INITIATION CENTER OTH CONTRACEPT MEASURES V2501 GENERAL 02-25-2009 [facility] COUNSELING HEALTH PRESCRIPTIO CENTRAL N ORAL BANK ACCT CONTRACEPTS 3829 UNSPECIFIED 10-01-2008 PATIENT OTITIS FIRST PH[facility] MEDIA 39538 UNSPECIFIED 09-17-2008 PATIENT INFECTIVE FIRST PHYS OTITIS EXTERNA 075 INFECTIOUS 06-27-2008 PATIENT MONONUCLEOS FIRST PHYS IS 7840 HEADACHE 03-06-2008 PATIENT FIRST PHYS 66689 OTHER 03-05-2008 ST SPECIFIED [facility] CARDIAC [facility] DYSRHYTHMIA S 7802 SYNCOPE AND 03-05-2008 ST COLLAPSE [facility] 84763 NONSPECIFIC 03-05-2008 ST ABNORMAL [facility] ELECTROCARD MED [...] 28 CE 1 19 CV TA S DC PH NO AR PH MA EN CY [...] Procedure DOS Code Location Performer Comment IAADIADOO 19249 COLD [facility] STREPTOCO URGENT URGENT CCUS CARE CARE GROUP A WET Q0111 [place] [facility] REUBEN 6 N CO N CO INCL PREP [facility] VAGINAL [place] [facility] CERV/SKIN SPECIMENS IADNA 16830 [place] [facility] CHLAMYDIA 6 N CO N CO [facility] TRACHOMAT [facility] IS AMPLIFIED PROBE TQ AMINES 74250 [place] VAGINAL 6 N CO N CO FLUID [facility] QUALITATI [place] [facility] VE IADNA 54580 [place] NEISSERIA 6 N CO N CO [facility] GONORRHOE CENTER [place] AE AMPLIFIED PROBE TQ CONTRACEP S4993 [place] TIVE 6 N CO N CO PILLS FOR [facility] [place] [facility] CONTROL CONTRACEP S4993 [place] TIVE 6 N CO N CO PILLS FOR [facility] [place] [facility] CONTROL URINE 13533 [place] 6 N CO N CO TEST [facility] VISUAL [place] [facility] COLOR CMPRSN METHS IADNA [address] NEISSERIA 5 [facility] MED CTR GONORRHOE VORTEX OPERATOR ST VORTEX OPERATOR ST AE AMPLIFIED PROBE TQ GONADOTRO [address] PIN 5 [facility] VORTEX OPERATOR ST VORTEX OPERATOR ST QUALITATI VE COLLECTIO [address] N VENOUS 5 [facility] BLOOD MED CTR MED CTR VENIPUNCT VORTEX OPERATOR ST VORTEX OPERATOR ST URE IAADIADOO [address] 5 [facility] TRICHOMON MED CTR MED CTR VORTEX OPERATOR ST VORTEX OPERATOR ST VAGINALIS IADNA [address] CHLAMYDIA 5 [facility] MED CTR TRACHOMAT VORTEX OPERATOR ST VORTEX OPERATOR ST IS AMPLIFIED PROBE TQ INJECTION J1050 [facility] WALLY E ACETATE 1 MG INJECTION J1050 [facility] 4 [facility] [place] WALLY WALLY E ACETATE 1 MG IADNA 51248 [facility] CHLAMYDIA [address] [facility] DEPT TRACHOMAT WALLY WALLY IS AMPLIFIED PROBE TQ IADNA 94379 [facility] NEISSERIA [address] GONORRHOE WALLY WALLY AE AMPLIFIED PROBE TQ INJECTION J1050 [facility] 3 DISTRICT [facility] MEDROXYPR [facility] WALLY E ACETATE 1 MG INJECTION J1050 [facility] 3 DISTRICT [facility] MEDROXYPR [facility] WALLY E ACETATE 1 MG INJECTION J1050 [facility] 3 DISTRICT DISTRICT MED[facility] WALLY E ACETATE 1 MG IADNA 91807 [facility] CHLAMYDIA [address] WALLY WALLY IS AMPLIFIED PROBE TQ IADNA 60344 [facility] NEISSERIA [address] DEPT GONORRHOE WALLY WALLY AE AMPLIFIED PROBE TQ URINE 15792 JENNI ARTEAGA 2 [facility] HEALTH TEST CENTER CENTER VISUAL COLOR CMPRSN METHS INJ J1055 JENNI ARTEAGA MDRXYPRGE 2 [facility] HEALTH STRON CENTER CENTER ACTAT CNTRACPT USE 150 MG CONTRACEP S4993 [facility] TIVE 2 DISTRICT DISTRICT PILLS FOR [facility] WALLY WALLY CONTROL URNLS DIP 70743 JENNI MENJIVARON 2 [facility] HEALTH STICK/TAB CENTER CENTER LET RGNT NON-AUTO W/O MICRSCP FRAMES V2020 SHAI GARCIA PURCHASES 2 SPHERE V2100 SHAI GARCIA SINGLE 2 VISION PLANO +/- 4.00 PER LENS DETERMINA 73544 SHAI GARCIA TION 2 REFRACTIV E STATE OPHTH 17070 SHAI GARCIA MEDICAL 2 XM&EVAL COMPRE NEW PT 1/> VST FITTING 98063 SHAI GARCIA SPECTACLE 2 S XCPT APHAKIA MONOFOCAL LENS V2784 SHAI GARCIA POLYCARBO 2 BISI OR EQUAL ANY INDEX PER LENS WET Q0111 JENNI ARTEAGA REUBEN 2 [facility] HEALTH INCL PREP CENTER CENTER VAGINAL CERV/SKIN SPECIMENS IADNA 19864 JENNI ARTEAGA CHLAMYDIA 2 [facility] CENTER TRACHOMAT IS AMPLIFIED PROBE TQ CYTP 92133 PATHOLOGY PICKLESIM CERV/VAG 2 & ER JR FREDA AUTO THIN CYTOLOGY LAYER LAB PREP MNL SCREEN INJ J1055 JENNI ARTEAGA MDRXYPRGE 2 [facility] HEALTH STRON CENTER CENTER ACTAT CNTRACPT USE 150 MG ALL Q0112 JENNI ARTEAGA POTASSIUM 2 [facility] CENTER HYDROXIDE PREPARATI ONS URNLS DIP 07847 JENNI ARTEAGA 2 [facility] HEALTH STICK/TAB CENTER CENTER LET RGNT NON-AUTO W/O MICRSCP SMR PRIM 18276 JENNI ARTEAGA SRC WET 2 [facility] CENTER NFCT AGT IADNA 75677 JENNI ARTEAGA NEISSERIA 2 [facility] HEALTH [place] GONORRHOE AE AMPLIFIED PROBE TQ AMINES 03246 JENNI ARTEAGA VAGINAL 2 [facility] FLUID CENTER CENTER QUALITATI VE PH BODY 90762 JENNI ARTEAGA FLUID NOT 2 [facility] CENTER ELSEWHERE SPECIFIED INJ J1055 JENNI ARTEAGA MDRXYPRGE 1 [facility] STRON [place] [facility] ACTAT CNTRACPT USE 150 MG INJ J1055 JENNI ARTEAGA MDRXYPRGE 1 [facility] STRON CENTER CENTER ACTAT CNTRACPT USE 150 MG INJ J1055 JENNI ARTEAGA MDRXYPRGE [address] [facility] ACTAT CNTRACPT USE 150 MG INJ J1055 JENNI ARTEAGA MDRXYPRGE 1 [facility] ACTAT CNTRACPT USE 150 MG INJ J1055 JENNI ARTEAGA MDRXYPRGE [address] [facility] ACTAT CNTRACPT USE 150 MG INJ J1055 [facility] [facility] MDRXYPRGE 0 N CO N [facility] ACTAT CENTER [place] CNTRACPT USE 150 MG IADNA 29476 [place] NEISSERIA 0 N CO N [facility] GONORRHOE CENTER [place] AE AMPLIFIED PROBE TQ IADNA 70621 [place] CHLAMYDIA 0 N CO N [facility] TRACH[facility] CENTER [place] IS AMPLIFIED PROBE TQ INJ J1055 [place] MDRXYPRGE 0 N CO N [facility] ACTAT CENTER [place] CNTRACPT USE 150 MG INJ J1055 P[place] MDRXYPRGE 0 N CO N [facility] ACTAT CENTER [place] CNTRACPT USE 150 MG BLOOD 21131 [place] COUNT 0 N CO N [place] HEMOGLOBI [facility] N [place] [facility] CONTRACEP S4993 DHS/CO [place] TIVE 9 HEALTH N CO PILLS FOR [facility] BANK ACCT CENTER CONTROL CONTRACEP S4993 DHS/CO [place] TIVE 9 HEALTH N CO PILLS FOR [facility] BANK ACCT CENTER CONTROL COMPREHEN 57179 PATIENT KALFAS, SIVE 8 FIRST ROEBRT C METABOLIC PHYS PANEL URNLS DIP [address] STICK/TAB EAST EAST LET RGNT AUTO W/O MICROSCOP Y CUL 88079 [facility] PRSMPTV [address] [place] [address] PTHGNC [facility] ORGANISM SCRN W/COLONY ESTIMJ BASIC 96382 [facility] METABOLIC [address] [place] [address] PANEL [facility] E[facility] CAL[facility]UM TOTAL BLOOD [address] COMPLETE [facility] AUTO&AUTO DIFRNTL WBC IAADIADOO [address] STREPTOCO [facility] CCUS GROUP A HETEROPHI [address] ANTIBODIE [facility] S SCREEN ECG 87863 [facility], ROUTINE 8 [facility] DEL A ECG MED CTR W/LEAST 12 LDS [place] [address] RADIOLOGY BRANDSER, HEAD/BRAI 8 KIM A N W/O ASSOCIATE CONTRAST S PSC MATERIAL Encounters Encounter Start End Date Code Location Performer Type Date OFFICE 56583 COLD OUTPATIEN 6 6 SPRING T NEW 45 URGENT MINUTES CARE PERIODIC 96114 [place] P[place] PREVENTIV 6 6 N CO N CO E MED EST [facility] PATIENT CENTER CENTER 18-39 YRS OFFICE 44379 [place] OUTPATIEN 6 6 N CO N CO T VISIT [address] CENTER MINUTES OFFICE 01154 [place] [facility] OUTPATIEN 6 6 N CO N CO T NEW 20 [facility] ST - 5 5 [facility] MED CTR T VORTEX OPERATOR ST EMERGENCY 68237 COMPASS BRACKEN 5 5 EMERGENCY TANGELA DEPARTMEN T VISIT PHYSICIAN MODERATE S SEVERITY EMERGENCY 39940 ST 5 5 [facility] DEPARTMEN MED CTR T VISIT VORTEX OPERATOR ST LOW/MODER SEVERITY OFFICE 14901 [facility] 4 4 DISTRICT DISTRICT T VISIT [facility] DEPT [facility] DEPT 15 WALLY WALLY MINUTES OFFICE 70958 [place] [facility] OUTPATIEN 4 4 MEDICAL MAR T NEW 30 SERV MINUTES FOUNDATIO OFFICE 91976 [facility] OUT[facility] 4 4 DISTRICT DISTRICT T VISIT [facility] DEPT [facility] DEPT 25 WALLY WALLY MINUTES OFFICE 95236 [facility] OUTPATIEN 4 4 DISTRICT DISTRICT T VISIT HLTH DEPT HLTH DEPT 15 WALLY WALLY MINUTES PERIODIC 59757 [facility] PREVENTIV 4 4 DISTRICT DISTRICT E MED EST HLTH DEPT HLTH DEPT PATIENT [facility] 18-[address] [facility] OUTPATIEN 3 3 [facility] ANTONELLA T VISIT 15 PHYSICIAN MINUTES S OFFICE 77598 [facility] 3 3 DISTRICT DISTRICT T VISIT HLTH DEPT HLTH DEPT 10 WALLY WALLY MINUTES OFFICE 62801 [facility] OUT[facility]IEN 3 3 DISTRICT DISTRICT T VISIT HLTH DEPT HLTH DEPT 10 [facility] WALLY MINUTES PERIODIC 99690 [facility] PREVENTIV 3 3 DISTRICT DISTRICT E MED EST HLTH DEPT HLTH DEPT PATIENT [facility] 18-39 YRS OFFICE 03109 [facility] OUT[facility]IEN 2 2 DISTRICT DISTRICT T VISIT HLTH DEPT HLTH DEPT 10 WALLY WALLY MINUTES OFFICE 82771 [facility] OUT[facility] 2 2 DISTRICT DISTRICT T VISIT HLTH DEPT HLTH DEPT 10 WALLY WALLY MINUTES OFFICE 94183 JENNI JENNI OUTPATIEN 2 2 [facility] T VISIT CENTER CENTER [address]ES [address] [facility] OUTPATIEN 2 2 [facility] ANTONELLA T VISIT 25 PHYSICIAN MINUTES S OFFICE 81174 [facility] 2 2 DISTRICT DISTRICT T VISIT HLTH DEPT HLTH DEPT 15 WALLY WALLY MINUTES OFFICE 66620 [facility] OUTPATIEN 2 2 [facility] ANTONELLA T VISIT 15 PHYSICIAN MINUTES S OFFICE 99689 JENNI JENNI OUTPATIEN 2 2 [facility] T VISIT CENTER CENTER 25 MINUTES OFFICE 66700 JENNI JENNI OUTPATIEN 2 2 [facility] VISIT CENTER CENTER 25 MINUTES PERIODIC 07053 JENNI ARTEAGA PREVENTIV 2 2 [facility] MED EST CENTER CENTER PATIENT 12-17YRS EMERGENCY [address] [facility] TR[facility] 1 1 [facility] DEPARTMEN MED CTR T VISIT LOW/MODER SEVERITY OFFICE 99981 JENNI ARTEAGA OUTPATIEN 1 1 [facility] T VISIT CENTER CENTER 15 MINUTES OFFICE 29074 JENNI ARTEAGA OUTPATIEN 1 1 [facility] T VISIT CENTER CENTER 10 MINUTES OFFICE 13154 JENNI ARTEAGA OUTPATIEN 1 1 [facility] T VISIT CENTER CENTER [address] [facility] OUTPAT[facility] 1 1 [facility] ANTONELLA T VISIT 15 PHYSICIAN MINUTES S OFFICE 61669 JENNI ARTEAGA OUTPATIEN 1 1 [facility] T VISIT CENTER CENTER [address] [facility] OUTPATI[facility] 1 1 [facility] ANTONELLA T VISIT 15 PHYSICIAN MINUTES S OFFICE 524[address] [facility] OUTPATIEN 1 1 [facility] ANTONELLA T VISIT 15 PHYSICIAN MINUTES S INITIAL 52164 JENNI ARTEAGA PREVENTIV 0 0 [facility] E CENTER CENTER MEDICINE NEW PT AGE 12-17 YR OFFICE 54658 [place] [facility] OUTPATIEN 0 0 N CO N CO T VISIT HEALTH HEALTH 15 CENTER CENTER MINUTES OFFICE 46103 [place] P[place] OUTPATIEN 0 0 N CO N CO T VISIT HEALTH [facility] 10 CENTER CENTER MINUTES OFFICE 91928 [facility] [facility] OUTPATIEN 0 0 N CO N CO T VISIT HEALTH HEALTH 15 CENTER CENTER MINUTES OFFICE 60944 [facility] [place] OUTPATIEN 9 9 HEALTH N CO T VISIT [facility] 10 BANK ACCT CENTER MINUTES OFFICE 45376 DHS/CO [place] OUTPATIEN 9 9 HEALTH N CO T NEW [facility] MINUTES [facility] ACCT CENTER OFFICE 39849 PATIENT KISHAN OUTKRISTINEEN 9 9 FIRST ANA T VISIT PHYS 15 MINUTES OFFICE 34183 PATIENT TORY OUTPATIEN 9 9 FIRST LORIN T VISIT PHYS 15 MINUTES OFFICE 19747 PATIENT KISHAN OUTULISES 8 8 FIRST ANA T VISIT PHYS 15 MINUTES OFFICE 07662 PATIENT ALLYN OUTPATIEN 8 8 FIRST ROBERT C T VISIT PHYS 25 MINUTES [facility] 8 8 [facility] T EMERGENCY 42413 EMERGENCY [facility] 8 8 [facility] PHYS T VISIT [facility] SEVERITY OFFICE 27300 PATIENT RAMILA HOLLEY 8 8 FIRST ANA T VISIT PHYS 25 MINUTES OFFICE 33774 PATIENT KISHAN OUTULISES 8 8 FIRST ANA T VISIT PHYS [address] [place], DEPT 8 8 [facility] VANEGAS VISIT MED CTR HIGH SEVERITY& THREAT FUNCJ OFFICE 69698 PATIENT RAMILA LEI 8 8 FIRST MONICA Johnson T VISIT PHYS 15 MINUTES OFFICE 11843 JAM POLK OUTULISES 8 8 GABRIEL RIOS T VISIT 10 MINUTES
--- OUTSIDE RECORDS SUMMARY | 2016-11-10 22:31 | External Medical Summary Rpt ---
Author Author [employer], [employer] Organization [employer] Address Unknown Phone Unavailable Results CHLAMYDIA AND GONORRHEA TESTING Observa Value Referen Units Interpr Notes Date tion ce etation Range COLLECT M.MORRI No No No No Mar 08 OR SON informa informa informa informa 2016 tion in tion in tion in tion in 9:30 AM source source source source data data data data ETHNICI WHITE, No No No No Mar 08 TY NON-HIS informa informa informa informa 2016 PANIC tion in tion in tion in tion in 9:30 AM source source source source data data data data KIT 12-31-1 No No No No Mar 08 EXPIRAT 6 informa informa informa informa 2016 ION tion in tion in tion in tion in 9:30 AM DATE source source source source data data data data SYMPTOM NO No No No No Mar 08 S informa informa informa informa 2016 tion in tion in tion in tion in 9:30 AM source source source source data data data data REASON REVISIT No No No No Mar 08 FOR /ANNUAL informa informa informa informa 2016 REQUEST FAMILY tion in tion in tion in tion in 9:30 AM source source source source PLANNIN data data data data G VISIT SPECIME FEMALE No No No No Mar 08 N ENDOCER informa informa informa informa 2016 SOURCE VICAL tion in tion in tion in tion in 9:30 AM source source source source data data data data PREGNAN NO No No No No Mar 08 T informa informa informa informa 2016 tion in tion in tion in tion in 9:30 AM source source source source data data data data CHART N/A No No No No Mar 08 NUMBER informa informa informa informa 2016 tion in tion in tion in tion in 9:30 AM source source source source data data data data Chlamyd POSITIV No No No NEGATIV Mar 08 ia E informa informa informa E 2016 trachom tion in tion in tion in RESULT= 9:30 AM atis source source source WITHIN rRNA data data data NORMAL [Presen ce] in LIMITSP Unspeci OSITIVE fied specime RESULT= n by Probe & ABNORMA target LEQUIVO COREY amplifi RESULT= cation method INDETER MINATEU NSATISF ACTORY RESULT= INVALID Neisser NEGATIV No No No NEGATIV Mar 08 ia E informa informa informa E 2016 gonorrh tion in tion in tion in RESULT= 9:30 AM oeae source source source WITHIN rRNA data data data NORMAL [Presen ce] in LIMITSP Unspeci OSITIVE fied specime RESULT= n by Probe & ABNORMA target LEQUIVO COREY amplifi RESULT= cation method INDETER MINATEU NSATISF ACTORY RESULT= INVALID THE APTIMA COMBO 2 ASSAY IS NOT INTENDE D FOR THE EVALUAT ION OF SUSPECT EDSEXUA L ABUSE OR FOR OTHER MEDICO- LEGAL INDICAT IONS. FOR THOSE PATIENT S FORWHOM A FALSE POSITIV E RESULT MAY HAVE ADVERSE PSYCHO- SOCIAL IMPACT, [facility] NG.\.br \This report contain s patient informa tion that must be protect ed in accorda nce with the Health Insuran ce Portabi lity and Account ability Act. CHLAMYDIA AND GONORRHEA TESTING Observa Value Referen Units Interpr Notes Date tion ce etation Range COLLECT M.MORRI No No No No Mar 08 OR SON informa informa informa informa 2016 tion in tion in tion in tion in 9:30 AM source source source source data data data data ETHNICI WHITE, No No No No Mar 08 TY NON-HIS informa informa informa informa 2016 PANIC tion in tion in tion in tion in 9:30 AM source source source source data data data data KIT 12-31-1 No No No No Mar 08 EXPIRAT 6 informa informa informa informa 2016 ION tion in tion in tion in tion in 9:30 AM DATE source source source source data data data data SYMPTOM NO No No No No Mar 08 S informa informa informa informa 2016 tion in tion in tion in tion in 9:30 AM source source source source data data data data REASON REVISIT No No No No Mar 08 FOR /ANNUAL informa informa informa informa 2016 REQUEST FAMILY tion in tion in tion in tion in 9:30 AM source source source source PLANNIN data data data data G VISIT SPECIME FEMALE No No No No Mar 08 N ENDOCER informa informa informa informa 2016 SOURCE VICAL tion in tion in tion in tion in 9:30 AM source source source source data data data data PREGNAN NO No No No No Mar 08 T informa informa informa informa 2016 tion in tion in tion in tion in 9:30 AM source source source source data data data data CHART N/A No No No No Mar 08 NUMBER informa informa informa informa 2016 tion in tion in tion in tion in 9:30 AM source source source source data data data data Chlamyd Pending No No No No Mar 08 ia informa informa informa informa 2016 trachom tion in tion in tion in tion in 9:30 AM atis source source source source rRNA data data data data [Presen ce] in Unspeci fied specime n by Probe & target amplifi cation method Neisser Pending No No No \.br\Mar 08 ia informa informa informa is 2016 gonorrh tion in tion in tion in report 9:30 AM oeae source source source contain rRNA data data data s [Presen patient ce] in Unspeci informa fied tion specime that n by must be Probe & target protect ed in amplifi accorda cation nce method with the Health Insuran ce Portabi lity and Account ability Act. Chlamyd/GC TMA Observa Value Referen Units Interpr Notes Date tion ce etation Range Chlamyd Negativ No No No No Jun 19 ia e informa informa informa informa 2015 trachom tion in tion in tion in tion in 1:35 PM atis source source source source data data data data Neisser Negativ No No No Testing Jun 19 ia e informa informa informa 2015 gonorrh tion in tion in tion in methodo 1:35 PM oeae source source source logy is data data data transcr iption mediate d amplifi cation (TMA) using the Aptima Combo 2 assay from [employer] be.\.br \A negativ e result does not complet larissa rule out a Chlamyd ia trachom atis or Neisser ia gonorrh oeae infecti on due to potenti al inhibit ors or levels present below the limit of detecti on by this assay. Results are depende nt on proper collect ion and transpo rt of specime n. This test is indicat ed for medical purpose s only and should not be used for legal or forensi c purpose s.\.br\ \.br\ e perform ance charact eristic s of this test were validat ed by [facility] are laborat ory. This assay is FDA cleared to test the followi ng specime ns: clinici an-fernando ected endocer vical, vaginal and male urethra l swab specime ns, patient collect ed vaginal specime ns within a clinic setting , Thin Prep Specime ns in Preserv Cyt Solutio n, and first-s tream, unprese rved male urine specime ns. Testing on female urine is not FDA approve d by this methodo logy, but has been develop ed and validat ed by the [facility] are laborat ory. Detaile d methodo logy is availab le upon request . Ag Trich Observa Value Referen Units Interpr Notes Date tion ce etation Range Trichom Negativ No No No No Jun 18 onas Ag e informa informa informa informa 2014 tion in tion in tion in tion in 10:26 source source source source AM data data data data HCG Qual Observa Value Referen Units Interpr Notes Date ti ce etation Range HCG Negativ No No No No Jun 18 QUAL e informa informa informa informa 2014 tion in tion in tion in tion in 9:30 AM source source source source data data data data CHLAMYDIA AND GONORRHEA TESTING Observa Value Referen Units Interpr Notes Date ti ce etation Range COLLECT NA No No No No Aug 30 OR informa informa informa informa 2012 tion in tion in tion in tion in 9:30 AM source source source source data data data data ETHNICI WHITE, No No No No Aug 30 TY NON-HIS informa informa informa informa 2012 PANIC tion in tion in tion in tion in 9:30 AM source source source source data data data data KIT 8-31-13 No No No No Aug 30 EXPIRAT informa informa informa informa 2013 ION tion in tion in tion in tion in 9:30 AM DATE source source source source data data data data SYMPTOM NO No No No No Aug 30 S informa informa informa informa 2013 tion in tion in tion in tion in 9:30 AM source source source source data data data data REASON REVISIT No No No No Aug 30 FOR /ANNUAL informa informa informa informa 2013 REQUEST FAMILY tion in tion in tion in tion in 9:30 AM source source source source PLANNIN data data data data G VISIT SPECIME URINE No No No No Aug 30 N informa informa informa informa 2013 SOURCE tion in tion in tion in tion in 9:30 AM source source source source data data data data PREGNAN NO No No No No Aug 30 T informa informa informa informa 2013 tion in tion in tion in tion in 9:30 AM source source source source data data data data CHART NA No No No No Aug 30 NUMBER informa informa informa informa 2013 tion in tion in tion in tion in 9:30 AM source source source source data data data data Chlamyd NEGATIV No No No NEGATIV Aug 30 ia E informa informa informa E 2013 trachom tion in tion in tion in RESULT= 9:30 AM atis source source source WITHIN rRNA data data data NORMAL [Presen ce] in LIMITSP Unspeci OSITIVE fied specime RESULT= n by Probe & ABNORMA target LEQUIVO COREY amplifi RESULT= cation method INDETER MINATEU NSATISF ACTORY RESULT= INVALID Neisser NEGATIV No No No NEGATIV Aug 30 ia E informa informa informa E 2013 gonorrh tion in tion in tion in RESULT= 9:30 AM oeae source source source WITHIN rRNA data data data NORMAL [Presen ce] in LIMITSP Unspeci OSITIVE fied specime RESULT= n by Probe & ABNORMA target LEQUIVO COREY amplifi RESULT= cation method INDETER MINATEU NSATISF ACTORY RESULT= INVALID THE APTIMA COMBO 2 ASSAY IS NOT INTENDE D FOR THE EVALUAT ION OF SUSPECT EDSEXUA L ABUSE OR FOR OTHER MEDICO- LEGAL INDICAT IONS. FOR THOSE PATIENT S FORWHOM A FALSE POSITIV E RESULT MAY HAVE ADVERSE PSYCHO- SOCIAL IMPACT, [facility] MMENDS RETESTI NG.\.br \This report contain s patient informa tion that must be protect ed in accorda nce with the Health Insuran ce Portabi lity and Account ability Act. CHLAMYDIA AND GONORRHEA TESTING Observa Value Referen Units Interpr Notes Date tion ce etation Range COLLECT NA No No No No Aug 30 OR informa informa informa informa 2013 tion in tion in tion in tion in 9:30 AM source source source source data data data data ETHNICI WHITE, No No No No Aug 30 TY NON-HIS informa informa informa informa 2013 PANIC tion in tion in tion in tion in 9:30 AM source source source source data data data data KIT 8-31-13 No No No No Aug 30 EXPIRAT informa informa informa informa 2013 ION tion in tion in tion in tion in 9:30 AM DATE source source source source data data data data SYMPTOM NO No No No No Aug 30 S informa informa informa informa 2013 tion in tion in tion in tion in 9:30 AM source source source source data data data data REASON REVISIT No No No No Aug 30 FOR /ANNUAL informa informa informa informa 2013 REQUEST FAMILY tion in tion in tion in tion in 9:30 AM source source source source PLANNIN data data data data G VISIT SPECIME URINE No No No No Aug 30 N informa informa informa informa 2013 SOURCE tion in tion in tion in tion in 9:30 AM source source source source data data data data PREGNAN NO No No No No Aug 30 T informa informa informa informa 2013 tion in tion in tion in tion in 9:30 AM source source source source data data data data CHART NA No No No No Aug 30 NUMBER informa informa informa informa 2013 tion in tion in tion in tion in 9:30 AM source source source source data data data data Chlamyd Pending No No No No Aug 30 ia informa informa informa informa 2013 trachom tion in tion in tion in tion in 9:30 AM atis source source source source rRNA data data data data [Presen ce] in Unspeci fied specime n by Probe & target amplifi cation method Neisser Pending No No No \.br\Aug 30 ia informa informa informa is 2013 gonorrh tion in tion in tion in report 9:30 AM oeae source source source contain rRNA data data data s [Presen patient ce] in Unspeci informa fied tion specime that n by must be Probe & target protect ed in amplifi accorda cation nce method with the Health Insuran ce Portabi lity and Account ability Act.
--- OUTSIDE RECORDS SUMMARY | 2016-11-10 22:31 | External Medical Summary Rpt ---
Demographics Preferred Language Citizen Of [place] Marital Status Unknown Yazdanism Affiliation Unknown Race Unknown Ethnic Group Unknown Author Author , Organization [employer] Address Unknown Phone Unavailable Purpose Continuity of Care Document - through 2016 Immunization No patient found.
--- OUTSIDE RECORDS SUMMARY | 2016-11-10 22:31 | External Medical Summary Rpt ---
[...] MAY HAVE ADVERSE PSYCHO- SOCIAL IMPACT, [facility] MMENDS RETESTI NG.\.br \This report contain s [...] using the Aptima Combo 2 assay from [employer] [place] /[employer] be.\.br \A negativ e result does [...] of this test were validat ed by [facility] are laborat ory. This assay is [...] develop ed and validat ed by the [facility] are laborat ory. Detaile d methodo [...] MAY HAVE ADVERSE PSYCHO- SOCIAL IMPACT, [facility] MMENDS RETESTI NG.\.br \This report contain s [...]
--- OUTSIDE RECORDS SUMMARY | 2016-11-10 22:31 | External Medical Summary Rpt ---
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 SOLOMON MAR, SOLOMON Unavailable Unavailable MAR KALFAS, ROBERT C, Unavailable Unavailable KALFAS, ROBERT C [facility] Unavailable Un[facility], [facility] Unavailable Unavailable LAB, PATHOLOGY & CYTOLOGY LAB [facility] Unavailable Unavailable CENTER, [facility] Unavailable Unavailable [facility], [facility], Unavailable Unavailable [facility], Unavailable Unavailable EDWARD MONTGOMERY JR, Unavailable Unavailable EDWARD MONTANA TRO, ROCK TRO Unavailable Unavailable KISHAN LUDWIG Unavailable Unavailable ANA MCCLELLAN, Unavailable Unavailable ANA HOLLEY MICHAEL G, Unavailable Unavailable MONICA LEI [facility], Unavailable Unavailable [facility] Unavailable Unavailable 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 GABRIEL POLK, Unavailable Unavailable GABRIEL POLK SHELBY, Unavailable Unavailable LORIN SPEARS [facility] Unavailable Unavailable #5, [facility] Unavailable Unavailable DEPT [facility], [facility] DEPT [facility] Unavailable [facility]available DEPT [facility], [facility] DEPT [facility] Purpose Continuity of Care Document - 08-07-2007 through 2016 Problems Code Diagnosis DOS Provider Status J0190 ACUTE 05-04-2016 [facility] [facility] UNSPECIFIED CARE J029 ACUTE 05-04-2016 [facility] [facility] PHARYNGITIS [facility]ARE UNSPECIFIED R110 NAUSEA 05-04-2016 [facility] R599 ENLARGED 05-04-2016 [facility] LYMPH [facility]ES [facility] UNSPECIFIED [id number] ENCOUNTER 03-08-2016 [place] [facility]IAL [facility] N CONTRACEPTI VE UNS S91988 ENCOUNTER 03-02-2016 [place] PRESCRIPTIO [facility] N EMERGENCY CENTER CONTRACEPTI ON Z3189 ENCOUNTER 03-02-2016 [place] FOR OTHER [facility] PROCREATIVE CENTER MANAGEMENT R509 FEVER 09-16-2015 [place] UNSPECIFIED [facility] N939 ABNORMAL 06-18-2015 [facility] 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 ST UNSPECIFIED R102 PELVIC AND 06-18-2015 ST PERINEAL [facility] PAIN [facility] MACHINE ASSEMBLER ST 6143 ACUTE 12-25-2013 [facility]AMET[facility] S AND [facility] DEPT PELVIC WALLY CELLULITIS V2549 SURVEILLANC 12-25-2013 [facility] E OTH PREV DISTRICT PRSC [facility] DEPT CONTRACEPT WALLY METHOD 6250 DYSPAREUNIA 10-15-2013 [facility] 6149 UNSPEC 09-11-2013 [facility] INFLAM DISTRICT DISEASE FE [facility] DEPT PELVIC WALLY ORGANS&TISS UES V2689 OTHER 09-11-2013 [facility] SPECIFIED DISTRICT PROCREATIVE [facility] DEPT MANAGEMENT WALLY 7336 TIETZES 02-12-2013 DISEASE [facility] 2662 OTHER 01-11-2012 [facility] B-COMPLEX HEALTH DEFICIENCIE CENTER S 2512 HYPOGLYCEMI 12-29-2011 [facility] UNSPECIFIED PHYSICIANS 7962 ELEVATED BP 12-29-2011 READ[facility] WITHOUT DX PHYSICIANS HYPERTENSIO N V2541 SURVEILLANC 10-22-2011 [facility] E PREV DISTRICT PRESCRIBED [facility] DEPT CONTRACEPT WALLY PILL 463 ACUTE 09-27-2011 TONSILLITIS [facility] 62344 UNSPECIFIED 08-17-2011 [facility] VAGINITIS [facility] VULVOVAGINI TIS 3671 MYOPIA 08-12-2011 SHAI JAM 09668 NONGONOCOCC 07-27-2011 [facility] URETHRITIS CENTER DUE CHLAMYDTRAC HOMATIS V7231 ROUTINE 07-27-2011 PATHOLOGY & GYNECOLOGIC CYTOLOGY AL LAB EXAMINATION 9140 HAND NO 06-04-2011 [facility] ALONE [facility] CTR ABRAS/FRIC BURN W/O INF V2509 OTH GENERAL 02-19-2011 [facility] HEALTH CNSL&ADVICE CENTER CONTRACEPT MANAGEMENT 47992 MIGRAINE 10-26-2010 ST UNSP W/O [facility] INTRACT W/O PHYSICIANS STATUS MIGRAINOSUS 4619 ACUTE 09-04-2010 ST SINUSITIS, [facility] UNSPECIFIED PHYSICIANS 5589 OTH&UNSPEC 08-04-2010 NONINFECTIO [facility] GASTROENTER ITIS&COLITI S V1582 PERS HX 06-30-2010 [facility] TOBACCO USE HEALTH PRESENTING CENTER HAZARDS HEALTH V7643 SCREENING 06-30-2010 [facility] FOR HEALTH MALIGNANT CENTER NEOPLASM OF THE SKIN V2502 GENERAL 10-21-2009 [place] CNSL [facility]ATION [facility] OTH CONTRACEPT MEASURES V2501 GENERAL 02-25-2009 [facility] PRESCRIPTIO CENTRAL N ORAL BANK ACCT CONTRACEPTS 3829 UNSPECIFIED 10-01-2008 PATIENT OTITIS FIRST PHYS MEDIA 14216 UNSPECIFIED 09-17-2008 PATIENT INFECTIVE FIRST PHYS OTITIS EXTERNA 075 INFECTIOUS 06-27-2008 PATIENT MONONUCLEOS FIRST PHYS IS 7840 HEADACHE 03-06-2008 PATIENT FIRST PHYS 36850 OTHER 03-05-2008 ST SPECIFIED [facility] CARDIAC [facility] CTR DYSRHYTHMIA S 7802 SYNCOPE AND 03-05-2008 ST COLLAPSE [facility] 12998 NONSPECIFIC 03-05-2008 ST ABNORMAL [facility] ELECTROCARD MED [...] 28 CE 1 19 CV TA S CA PH NO AR PH MA EN CY [...] Ac PI 46 -1 -1 .0 16 RAYN ti RA 20 8- 8- 00 65 [...] MA CY CA PS #5 UL E Procedures Procedure DOS Code Location Performer Comment IAADIADOO [address] [facility]US CARE CARE GROUP A WET Q0111 [place] [facility] REUBEN 6 N CO N CO INCL PREP [facility] CENTER CERV/SKIN SPECIMENS IADNA 71905 [place] [facility] NEISSERIA 6 N CO N CO [facility] CENTER AE AMPLIFIED PROBE TQ AMINES 91996 [place] VAGINAL 6 N CO N CO FLUID [facility] CENTER VE IADNA 86688 [place] CHLAMYDIA 6 N CO N CO [facility] TRACH[facility] CENTER IS AMPLIFIED PROBE TQ CONTRACEP S4993 [place] TIVE 6 N CO N CO PILLS FOR [facility] CENTER CONTROL CONTRACEP S4993 [place] TIVE 6 N CO N CO PILLS FOR [facility] CONTROL URINE 40420 [place] P[place] 6 N CO N CO TEST [facility] VISUAL [facility] C[facility] COLOR CMPRSN METHS COLLECTIO [address] N VENOUS 5 [facility] CTR VENIPUNCT MACHINE ASSEMBLER ST MACHINE ASSEMBLER ST URE IADNA [address] NEISSERIA 5 [facility] CTR MED CTR GONORRHOE MACHINE ASSEMBLER ST MACHINE ASSEMBLER ST AE AMPLIFIED PROBE TQ IADNA [address] CHLAMYDIA 5 [facility] CTR MED CTR TRACHOMAT MACHINE ASSEMBLER ST MACHINE ASSEMBLER ST IS AMPLIFIED PROBE TQ GONADOTRO [address] PIN 5 [facility] CHORIONIC MED CTR MED CTR MACHINE ASSEMBLER ST MACHINE ASSEMBLER ST QUALITATI VE IAADIADOO [address] 5 [facility] TRICHOMON MED CTR MED CTR MACHINE ASSEMBLER ST MACHINE ASSEMBLER ST VAGINALIS INJECTION J1050 [facility] DEPT [facility] WALLY E ACETATE 1 MG INJECTION J1050 [facility] WALLY E ACETATE 1 MG IADNA 58934 [facility] CHLAMYDIA 4 DISTRICT DISTRICT [facility] DEPT TRACHOMAT WALLY WALLY IS AMPLIFIED PROBE TQ IADNA 93980 [facility] NEISSERIA [facility] DEPT GONORRHOE WALLY WALLY AE AMPLIFIED PROBE TQ INJECTION J1050 [facility] DEPT [facility] WALLY E ACETATE 1 MG INJECTION J1050 [facility] DEPT [facility] DEPT [facility] WALLY E ACETATE 1 MG INJECTION J1050 [facility] DEPT [facility] DEPT [place]GE[place] WALLY WALLY E ACETATE 1 MG IADNA 57022 [facility] CHLAMYDIA 3 DISTRICT [facility] DEPT [facility] DEPT TRACHOMAT AWLLY WALLY IS AMPLIFIED PROBE TQ IADNA 38878 [facility] NEISSERIA 3 [facility] DEPT [facility] DEPT GONORRHOE WALLY [facility] AE AMPLIFIED PROBE TQ URINE 49654 JENNIBRI ARTEAGA 2 [facility] HEALTH TEST CENTER CENTER VISUAL COLOR CMPRSN METHS INJ J1055 JENNI ARTEAGA MDRXYPRGE 2 [facility] STRON CENTER CENTER ACTAT CNTRACPT USE 150 MG CONTRACEP S4993 [facility] TIVE [address] [facility] PILLS FOR TH DEPT [facility] DEPT [facility] WALLY CONTROL URNLS DIP 30631 JENNI ARTEAGA 2 [facility] HEALTH STICK/TAB CENTER CENTER LET RGNT NON-AUTO W/O MICRSCP FRAMES V2020 SHAI GARCIA PURCHASES 2 LENS V2784 SHAI GARCIA POLYCARBO 2 BISI OR EQUAL ANY INDEX PER LENS SPHERE V2100 SHAI GARCIA SINGLE 2 VISION PLANO +/- 4.00 PER LENS DETERMINA 56089 SHAI GARCIA TION 2 REFRACTIV E STATE FITTING 19788 SHAI GARCIA SPECTACLE 2 S XCPT APHAKIA MONOFOCAL OPHTH 90819 SHAI GARCIA MEDICAL 2 XM&EVAL COMPRE NEW PT 1/> VST CYTP 33193 PATHOLOGY PICKLESIM CERV/VAG 2 & ER JR FREDA AUTO THIN CYTOLOGY LAYER LAB PREP MNL SCREEN IADNA 62631 JENNI ARTEAGA CHLAMYDIA 2 [facility] CENTER CENTER TRACHOMAT IS AMPLIFIED PROBE TQ SMR PRIM 83123 JENNI ARTEAGA SRC WET 2 [facility] MOUNT CENTER CENTER NFCT AGT INJ J1055 JENNI ARTEAGA MDRXYPRGE 2 [facility] STRON CENTER CENTER ACTAT CNTRACPT USE 150 MG ALL Q0112 JENNI ARTEAGA POTASSIUM 2 [facility] CENTER CENTER HYDROXIDE PREPARATI ONS IADNA 76829 JENNI ARTEAGA NEISSERIA 2 [facility] GONORRHOE AE AMPLIFIED PROBE TQ WET Q0111 JENNI ALEXIS 2 [facility] INCL PREP CENTER CENTER VAGINAL CERV/SKIN SPECIMENS URNLS DIP 29119 JENNI ARTEAGA 2 [facility] STICK/TAB CENTER CENTER LET RGNT NON-AUTO W/O MICRSCP AMINES 13216 JENNI ARTEAGA VAGINAL 2 [facility] FLUID CENTER CENTER QUALITATI VE PH BODY 46405 JENNI ARTEAGA FLUID NOT 2 [facility] ELSEWHERE SPECIFIED INJ J1055 JENNI ARTEAGA MDRXYPRGE 1 [facility] STRON CENTER [place]HELSEA ACTAT CNTRACPT USE 150 MG INJ J1055 JENNI ARTEAGA MDRXYPRGE 1 [facility] STRON CENTER [place] ACTAT CNTRACPT USE 150 MG INJ J1055 JENNI ARTEAGA MDRXYPRGE 1 [facility] STRON CENTER CENTER ACTAT CNTRACPT USE 150 MG INJ J1055 JENNI ARTEAGA MDRXYPRGE 1 [facility] STRON CENTER CENTER ACTAT CNTRACPT USE 150 MG INJ J1055 JENNI ARTEAGA MDRXYPRGE 0 [facility] STRON CENTER CENTER ACTAT CNTRACPT USE 150 MG INJ J1055 [place] MDRXYPRGE 0 N CO N [facility] CENTER CNTRACPT USE 150 MG IADNA 45659 [place] CHLAMYDIA 0 N CO N [facility] C[facility] CENTER IS AMPLIFIED PROBE TQ IADNA 28175 [place] NEISSERIA 0 N CO N [facility] GONORRHO[facility] CENTER CENTER AE AMPLIFIED PROBE TQ INJ J1055 [place] MDRXYPRGE 0 N CO N CO [facility] CENTER CNTRACPT USE 150 MG INJ J1055 [place] MDRXYPRGE 0 N CO N CO [facility] [place]SEA CNTRACPT USE 150 MG BLOOD 99304 [place] COUNT 0 N CO N CO HEMOGLOBI [facility] N CENTER CENTER CONTRACEP S4993 [facility] [place] TIVE 9 HEALTH N CO [facility]ILL[facility] FOR [facility] BANK ACCT CENTER CONTROL CONTRACEP S4993 [facility]/CO [place] TIVE 9 HEALTH N CO [facility] BANK ACCT CENTER CONTROL COMPREHEN 07484 PATIENT ISATU GRUBER 8 FIRST ROBERT C METABOLIC PHYS PANEL URNLS DIP [address] STICK/TAB [facility] LET RGNT AUTO W/O MICROSCOP Y BASIC 40845 [facility] METABOLIC [address] [place] [address] PANEL [facility] CALCIUM TOTAL BLOOD 98454 [facility] COUNT [address] [place] [address] COMPLETE [facility] AUTO&AUTO DIFRNTL WBC IAADIADOO [address] STREPTOCO [facility] CCUS GROUP A HETEROPHI 63586 [facility] LE [address] [place] [address] ANTIBODIE [facility] S SCREEN CUL 73678 [facility] PRSMPTV [address] [place] [address] PTHGNC [facility] ORGANISM SCRN W/[place] [address] RADIOLOGY BRANDSER, HEAD/BRAI 8 KIM A N W/O ASSOCIATE CONTRAST S PSC MATERIAL ECG 39004 [facility], ROUTINE 8 [facility] DEL A ECG MED CTR W/LEAST 12 LDS I&R ONLY Encounters Encounter Start End Date Code Location Performer Type Date OFFICE 17880 [facility] OUTPATIEN 6 6 SPRING T [place] 45 URGENT MINUTES CARE PERIODIC 60518 [place] PREVENTIV 6 6 N CO N CO E MED EST [facility] CENTER 18-39 YRS OFFICE 35799 [place] OUTPATIEN 6 6 N CO N CO T VISIT [facility] 10 [facility] C[facility] MINUTES OFFICE 12795 [place] OUTPATIEN 6 6 N CO N CO T NEW 20 [facility] ST - 5 5 [facility] OUT[facility] MED CTR T MACHINE ASSEMBLER ST EMERGENCY 36427 COMPASS BRACKEN 5 5 EMERGENCY TANGELA DEPARTMEN T VISIT PHYSICIAN MODERATE S SEVERITY EMERGENCY [address]1018 ST 5 5 [facility] DEPARTMEN MED CTR T VISIT MACHINE ASSEMBLER ST LOW/MODER SEVERITY OFFICE 09522 [facility] T VISIT HLTH DEPT HLTH DEPT 15 WALLY WALLY MINUTES OFFICE 53002 [place] [facility] OUTPATIEN 4 4 MEDICAL MAR T NEW 30 SERV MINUTES FOUNDATIO OFFICE 84167 [facility] OUT[facility] 4 4 [facility] T VISIT HLTH DEPT HLTH DEPT 25 WALLY WALLY MINUTES OFFICE 82535 [facility] 4 4 [facility] T VISIT TH DEPT TH DEPT 15 WALLY WALLY MINUTES PERIODIC 04966 [facility] PREVENTIV 4 4 [facility] E MED EST HLTH DEPT HLTH DEPT PATIENT WALLY WALLY 18-[address] [facility] OUTPATIEN 3 3 [facility] ANTONELLA T VISIT 15 PHYSICIAN MINUTES S OFFICE 45179 [facility] 3 3 [facility] T VISIT HLTH DEPT TH DEPT 10 WALLY WALLY MINUTES OFFICE 16991 [facility] 3 3 [facility] T VISIT HLTH DEPT HLTH DEPT 10 WALLY WALLY MINUTES PERIODIC 61927 [facility] PREVENTIV 3 3 [facility] E MED EST HLTH DEPT HLTH DEPT PATIENT WALLY WALLY 18-39 YRS OFFICE 90201 [facility] 2 2 [facility] T VISIT TH DEPT [facility] DEPT 10 [facility] MINUTES OFFICE 15712 [facility] OUTPATIEN 2 2 [facility] T VISIT TH DEPT [facility] DEPT 10 [facility] MINUTES OFFICE 20382 JENNI ARTEAGA OUTPATIEN 2 2 [facility] HE[facility] T VISIT CENTER CENTER [address]ES [address] [facility] OUTPATIEN 2 2 [facility] ANTONELLA T VISIT 25 PHYSICIAN MINUTES S OFFICE 76327 [facility] 2 2 [facility] T VISIT TH DEPT [facility] DEPT 15 WALLY [facility] MINUTES OFFICE 211[address] [facility] OUTPATIEN 2 2 [place] ANTONELLA T VISIT 15 PHYSICIAN MINUTES S OFFICE 15050 JENNI ARTEAGA OUTPATIEN 2 2 [facility] HE[facility] T VISIT CENTER CENTER 25 MINUTES OFFICE 74898 JENNI ARTEAGA OUTPATIEN 2 2 [facility] HE[facility] T VISIT CENTER CENTER 25 MINUTES PERIODIC 66914 JENNI ARTEAGA PREVENTIV 2 2 [facility] HEALTH E MED EST CENTER CENTER PATIENT 12-17YRS EMERGENCY [address] [facility] [place] TRO 1 1 [facility] DEPARTMEN MED CTR T VISIT LOW/MODER SEVERITY OFFICE 85437 JENNI ARTEAGA OUTPATIEN 1 1 [facility] CENTER 15 MINUTES OFFICE 25940 JENNI ARTEAGA OUTPATIEN 1 1 [facility] T VISIT CENTER CENTER 10 MINUTES OFFICE 36408 JENNI ARTEAGA OUTPATIEN 1 1 [facility] HE[facility] T VISIT CENTER CENTER [address] [facility] OUTPATIEN 1 1 [facility] ANTONELLA T VISIT 15 PHYSICIAN MINUTES S OFFICE 09911 JENNI ARTEAGA OUTPATIEN 1 1 [facility] VISIT CENTER CENTER [address] KISHAN OUTPATIEN 1 1 [facility] ANTONELLA T VISIT 15 PHYSICIAN MINUTES S OFFICE [address] [facility] K[facility] OUTPATIEN 1 1 [facility] ANTONELLA T VISIT 15 PHYSICIAN MINUTES S INITIAL 97460 JENNI ARTEAGA PREVENTIV 0 0 [facility] E CENTER CENTER MEDICINE NEW PT AGE 12-17 YR OFFICE 13682 [place] P[place] OUTPATIEN 0 0 N CO N CO T VISIT [facility] C[facility] MINUTES OFFICE 42175 [place] P[place] OUTPATIEN 0 0 N CO N CO T VISIT [facility] CENTER MINUTES OFFICE 11537 [place] P[place] OUTPATIEN 0 0 N CO N CO T VISIT [facility] 15 CENTER CENTER MINUTES OFFICE 93809 [facility] [place] OUTPATIEN 9 9 HEALTH N CO T VISIT [facility] [address] [facility] ACCT CENTER MINUTES OFFICE 22915 DHS/CO [place] OUTPATIEN 9 9 HEALTH N CO T NEW 30 [facility] MINUT[facility] ACCT CENTER OFFICE 54412 PATIENT SCHAJORDON, OUTPATIEN 9 9 FIRST ANA T VISIT PHYS 15 MINUTES OFFICE 00725 PATIENT SPEARS, OUTPATIEN 9 9 FIRST LORIN T VISIT PHYS 15 MINUTES OFFICE 16844 PATIENT SCHAJORDON, OUTPATIEN 8 8 FIRST ANA T VISIT PHYS 15 MINUTES OFFICE 86590 PATIENT KALFAS, OUTPATIEN 8 8 FIRST ROBERT C T VISIT PHYS 25 MINUTES EMERGENCY 07243 EMERGENCY RICHARD 8 8 [facility] PH[facility] T V[facility] [address] [facility] 66019 PATIENT RAMILA HOLLEY 8 8 FIRST ANA T VISIT PHYS 25 MINUTES OFFICE 47716 PATIENT RAMILA HOLLEY 8 8 FIRST ANA T VISIT PHYS 25 MINUTES EMERGENCY 90085 [facility], DEPT 8 8 [place] ABREUONY VISIT MED [facility] HIGH SEVERITY& THREAT FUN OFFICE 88342 PATIENT RAMILA LEI 8 8 FIRST MONICA Johnson T VISIT PHYS 15 MINUTES OFFICE 23671 JAM POLK OUTPATIEN 8 8 GABRIEL RIOS T VISIT 10 MINUTES
--- OUTSIDE RECORDS SUMMARY | 2016-11-10 22:31 | External Medical Summary Rpt ---
Demographics Preferred Language Maltese Marital Status Unknown Restorationism Affiliation Unknown Race Unknown Ethnic Group Unknown Author Author , Organization [employer] Address Unknown Phone Unavailable Purpose Continuity of Care Document - through 2016 Immunization No patient found.
--- OUTSIDE RECORDS SUMMARY | 2016-11-10 22:31 | External Medical Summary Rpt ---
Author Author , Organization [employer] Address Unknown Phone Unavailable Care Team Providers Care Gang Investigator Name Role Phone ALINA HONEYCUTT, ALINA Unavailable Unavailable TANGELA BRANDSER, KIM A, Unavailable Unavailable BRANDSER, KIM A JUNG, DEL A, Unavailable Unavailable JUNG, DEL A [facility] Un[facility] Unavailable [facility], [facility] SHAI JAM, SHAI JAM Unavailable Unavailable SHAI JAM, SHAI JAM Unavailable Unavailable BRUNA, GUILHERME, Unavailable Unavailable BRUNA, GUILHERME [facility] Unavailable Unavailable [place], [facility] Unavailable Unavailable [place], [facility] SOL[facility] MAR, SOLOMON Unavailable Unavailable MAR KALFAS, ROBERT C, Unavailable Unavailable KALFAS, ROBERT C [facility] Un[facility] Un[facility], [facility] Unavailable Unavailable LAB, [facility]Y [facility] LAB [facility] Unavailable Unavailable CENTER, [facility] Unavailable Unavailable CENTER, [facility], Unavailable Unavailable [facility], Unavailable Unavailable EDWARD MONTGOMERY JR, Unavailable Unavailable EDWARD MONTANA TRO, ROCK TRO Unavailable Unavailable KISHAN LUDWIG Unavailable Unavailable ANA MCCLELLAN, Unavailable Unavailable ANA HOLLEY MICHAEL G, Unavailable Unavailable [facility], Unavailable [facility] Unavailable Unavailable 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 ST, [facility] 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 [facility] Unavailable Unavailable [facility]ICIANS, [facility] Unavailable Unavailable [facility], [facility] GABRIEL POLK, Unavailable Unavailable GABRIEL POLK SHELBY, Unavailable Unavailable LORIN SPEARS [facility] Unavailable Unavailable #5, [facility] Unavailable Unavailable DEPT [facility], [facility] DEPT [facility] Unavailable [facility]available DEPT [facility], [facility] DEPT [facility] Purpose Continuity of Care Document - 08-07-2007 through 2016 Problems Code Diagnosis DOS Provider Status J0190 ACUTE 05-04-2016 [facility] UNSPECIFIED CARE J029 ACUTE 05-04-2016 [facility] PHARYNGITIS [facility] UNSPECIFIED R110 NAUSEA 05-04-2016 [facility] R599 ENLARGED 05-04-2016 [facility] LYMPH NODES [facility]RG[facility] UNSPECIFIED [id number] ENCOUNTER 03-08-2016 [facility]IAL [facility] N CONTRACEPTI VE UNS D75084 ENCOUNTER 03-02-2016 [facility] PRESCRIPTIO [facility] N EMERGENCY CENTER CONTRACEPTI ON Z3189 ENCOUNTER 03-02-2016 [facility] FOR OTHER [facility] PROCREATIVE CENTER MANAGEMENT R509 FEVER 09-16-2015 [facility] UNSPECIFIED [facility] N939 ABNORMAL 06-18-2015 [facility] 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 BLEEDING ST UNSPECIFIED R102 PELVIC AND 06-18-2015 ST PERINEAL [facility] PAIN MED CTR 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 B-COMPLEX HEALTH DEFICIENCIE CENTER S 2512 HYPOGLYCEMI 12-29-2011 BARBARA HoffmanTH UNSPECIFIED PHYSICIANS 7962 ELEVATED BP 12-29-2011 READING [facility] WITHOUT DX PHYSICIANS HYPERTENSIO N V2541 SURVEILLANC 10-22-2011 [facility] E PREV DISTRICT PRESCRIBED [facility] DEPT CONTRACEPT WALLY PILL 463 ACUTE 09-27-2011 TONSILLITIS [facility] 37407 UNSPECIFIED 08-17-2011 [facility] VAGINITIS [facility] [place] VULVOVAGINI TIS 3671 MYOPIA 08-12-2011 SHAI JAM 80118 NONGONOCOCC 07-27-2011 [facility] URETHRITIS CENTER DUE CHLAMYDTRAC HOMATIS V7231 ROUTINE 07-27-2011 PATHOLOGY & GYNECOLOGIC CYTOLOGY AL LAB EXAMINATION 9140 HAND NO 06-04-2011 [facility] F[facility] ALONE MED CTR ABRAS/FRIC BURN W/O INF V2509 OTH GENERAL 02-19-2011 [facility] HEALTH CNSL&ADVICE CENTER CONTRACEPT MANAGEMENT 89874 MIGRAINE 10-26-2010 ST UNSP W/O [facility] INTRACT W/O PHYSICIANS STATUS MIGRAINOSUS 4619 ACUTE 09-04-2010 ST SINUSITIS, [facility] UNSPECIFIED PHYSICIANS 5589 OTH&UNSPEC 08-04-2010 NONINFECTIO [facility] GASTROENTER ITIS&COLITI S V1582 PERS HX 06-30-2010 [facility] TOBACCO USE HEALTH PRESENTING CENTER HAZARDS HEALTH V7643 SCREENING 06-30-2010 [facility] FOR HEALTH MALIGNANT CENTER NEOPLASM OF THE SKIN V2502 GENERAL 10-21-2009 [facility] CNS[facility] INITIATION C[facility] OTH CONTRACEPT MEASURES V2501 GENERAL 02-25-2009 [facility]SELING HE[facility] PRESCRIPTIO CENTRAL N ORAL BANK ACCT CONTRACEPTS 3829 UNSPECIFIED 10-01-2008 PATIENT OTITIS FIRST PHYS MEDIA 89422 UNSPECIFIED 09-17-2008 PATIENT INFECTIVE FIRST PHYS OTITIS EXTERNA 075 INFECTIOUS 06-27-2008 PATIENT MONONUCLEOS FIRST PHYS IS 7840 HEADACHE 03-06-2008 PATIENT FIRST PHYS 53711 OTHER 03-05-2008 ST SPECIFIED [facility] CARDIAC [facility] CTR DYSRHYTHMIA S 7802 SYNCOPE AND 03-05-2008 ST COLLAPSE [facility] 40283 NONSPECIFIC 03-05-2008 ST ABNORMAL [facility] ELECTROCARD MED [...] 28 CE 1 19 CV TA S ME PH NO AR PH MA EN CY [...] Procedure DOS Code Location Performer Comment IAADIADOO [address] [facility] CARE GROUP A WET Q0111 [facility] REUBEN 6 N CO N CO INCL PREP [facility] VAGINAL CENTER CENTER CERV/SKIN SPECIMENS IADNA 62093 [facility] [facility] NEISSERIA 6 N CO N CO [facility] GONORRHOE CENTER CENTER AE AMPLIFIED PROBE TQ AMINES 28863 [facility] [facility] VAGINAL 6 N CO N CO FLUID [facility] QUALITATI CENTER CENTER VE IADNA 13943 [facility] [facility] CHLAMYDIA 6 N CO N CO [facility] TRACHOMAT CENTER CENTER IS AMPLIFIED PROBE TQ CONTRACEP S4993 [place] TIVE 6 N CO N CO PILLS FOR [facility] CENTER CENTER CONTROL CONTRACEP S4993 [place] TIVE 6 N CO N CO PILLS FOR [facility] [place] CENTER CONTROL URINE 50997 [place] 6 N CO N CO TEST [facility] VISUAL [place] CENTER COLOR CMPRSN METHS COLLECTIO [address] N VENOUS 5 [facility] BLOOD [facility] MED CTR VENIPUNCT 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 ST 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 ST URE IADNA [address] NEISSERIA 5 [facility] MED CTR GONORRHOE 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 ST 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 ST AE AMPLIFIED PROBE TQ IADNA [address] CHLAMYDIA 5 [facility] MED CTR TRACHOMAT 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 ST 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 ST IS AMPLIFIED PROBE TQ GONADOTRO [address] PIN 5 [facility] CHORIONIC MED CTR MED CTR 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 ST 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 ST QUALITATI VE IAADIADOO [address] 5 [facility] TRICHOMON MED CTR MED CTR 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 ST 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 ST VAGINALIS INJECTION J1050 [facility] DEPT OGESTERON [facility] WALLY E ACETATE 1 MG INJECTION J1050 [facility] WALLY E ACETATE 1 MG IADNA 63142 [facility] CHLAMYDIA 4 [facility] DEPT TRACHOMAT WALLY WALLY IS AMPLIFIED PROBE TQ IADNA 39412 [facility] NE[facility]IA [facility] DEPT GONORRHOE WALLY WALLY AE AMPLIFIED PROBE TQ INJECTION J1050 [facility] DEPT [facility] WALLY E ACETATE 1 MG INJECTION J1050 [facility] DEPT [facility] DEPT [facility]ON [facility] WALLY E ACETATE 1 MG INJECTION J1050 [facility] DEPT [facility] DEPT OGESTERON WALLY WALLY E ACETATE 1 MG IADNA 11329 [facility] CHLAMYDIA 3 [facility] DEPT TRACHOMAT WALLY WALLY IS AMPLIFIED PROBE TQ IADNA 94335 [facility] NEISSERIA 3 [facility] DEPT [facility] DEPT GONORRHOE WALLY [facility] AE AMPLIFIED PROBE TQ URINE 94591 JENNIBRI ARTEAGA 2 [facility] HE[facility] TEST CENTER CENTER VISUAL COLOR CMPRSN METHS INJ J1055 JENNI ARTEAGA MDRXYPRGE 2 [facility] CENTER ACTAT CNTRACPT USE 150 MG CONTRACEP S4993 [facility] TIVE 2 [facility] PILLS FOR TH DEPT [facility] DEPT [facility] WALLY CONTROL URNLS DIP 37375 JENNI ARTEAGA 2 [facility]ALTH STICK/TAB CENTER CENTER LET RGNT NON-AUTO W/O MICRSCP FRAMES V2020 SHAI GARCIA PURCHASES 2 LENS V2784 SHAI GARCIA POLYCARBO 2 BISI OR EQUAL ANY INDEX PER LENS SPHERE V2100 SHAI GARCIA SINGLE 2 VISION PLANO +/- 4.00 PER LENS DETERMINA 57434 SHAI GARCIA TION 2 REFRACTIV E STATE FITTING 07178 SHAI GARCIA SPECTACLE 2 S XCPT APHAKIA MONOFOCAL OPHTH 35564 SHAI GARCIA MEDICAL 2 XM&EVAL COMPRE NEW PT 1/> VST CYTP 96578 PATHOLOGY PICKLESIM CERV/VAG 2 & ER JR FREDA AUTO THIN CYTOLOGY LAYER LAB PREP MNL SCREEN IADNA 02585 JENNI ARTEAGA CHLAMYDIA 2 [facility] CENTER TRACHOMAT IS AMPLIFIED PROBE TQ SMR PRIM 27481 JENNI ARTEAGA SRC WET 2 [facility] CENTER NFCT AGT INJ J1055 JENNI ARTEAGA MDRXYPRGE 2 [facility] CENTER ACTAT CNTRACPT USE 150 MG ALL Q0112 JENNI ARTEAGA POTASSIUM 2 [facility] C[facility] CENTER HYDROXIDE PREPARATI ONS IADNA 59958 JENNI ARTEAGA NEISSERIA 2 [facility] CENTER GONORRHOE AE AMPLIFIED PROBE TQ WET Q0111 JENNI ALEXIS 2 [facility] INCL PREP CENTER CENTER VAGINAL CERV/SKIN SPECIMENS URNLS DIP 16206 JENNI ARTEAGA 2 [facility] HE[facility] STICK/TAB CENTER CENTER LET RGNT NON-AUTO W/O MICRSCP AMINES 75829 JENNI ARTEAGA VAGINAL 2 [facility] FLUID CENTER CENTER QUALITATI VE PH BODY 53157 JENNI ARTEAGA FLUID NOT 2 [facility] CENTER ELSEWHERE SPECIFIED INJ J1055 JENNI ARTEAGA MDRXYPRGE 1 [facility] [place] ACTAT CNTRACPT USE 150 MG INJ J1055 JENNI ARTEAGA MDRXYPRGE 1 [facility] STRON CENTER [place] ACTAT CNTRACPT USE 150 MG INJ J1055 JENNI ARTEAGA MDRXYPRGE 1 [facility] STR[facility] CENTER ACTAT CNTRACPT USE 150 MG INJ J1055 JENNI ARTEAGA MDRXYPRGE 1 [facility] CENTER ACTAT CNTRACPT USE 150 MG INJ J1055 JENNI ARTEAGA MDRXYPRGE 0 [facility] CENTER ACTAT CNTRACPT USE 150 MG INJ J1055 [place] MDRXYPRGE 0 N CO N [facility] CENTER CNTRACPT USE 150 MG IADNA 13279 [place] P[place] CHLAMYDIA 0 N CO N [facility] TRACHOMAT CENTER CENTER IS AMPLIFIED PROBE TQ IADNA 03942 [place] NEISSERIA 0 N CO N [facility] GONORRHOE CENTER CENTER AE AMPLIFIED PROBE TQ INJ J1055 [place] MDRXYPRGE 0 N CO N CO [facility] ACTAT CENTER CENTER CNTRACPT USE 150 MG INJ J1055 [place] MDRXYPRGE 0 N CO N CO [facility] ACT[facility] CENTER [place] CNTRACPT USE 150 MG BLOOD 29039 [place] COUNT 0 N CO N CO HEMOGLOBI [facility] N CENTER CENTER CONTRACEP S4993 [facility] [place] TIVE 9 HEALTH N CO PILLS [facility] BANK ACCT CENTER CONTROL CONTRACEP S4993 DHS/CO [facility] TIVE 9 HEALTH N CO [facility] FOR [facility] BANK ACCT CENTER CONTROL COMPREHEN 59720 PATIENT ISATU GRUBER 8 FIRST ROBERT C METABOLIC PHYS PANEL URNLS DIP [address] STICK/TAB [facility] LET RGNT AUTO W/O MICROSCOP Y BASIC 36078 [facility] METABOLIC [address] [place] [address] PANEL [facility] CALCIUM TOTAL BLOOD 34001 [facility] COUNT [address] [place] [address] COMPLETE [facility] AUTO&AUTO DIFRNTL WBC IAADIADOO [address] STREPTOCO [facility] CCUS GROUP A HETEROPHI 39294 [facility] LE [address] [place] [address] ANTIBODIE [facility] S SCREEN CUL 37685 [facility] PRSMPTV [address] [place] [address] PTHGNC [facility] ORGANISM SCRN W/[place] [address] RADIOLOGY BRANDSER, HEAD/BRAI 8 KIM A N W/O ASSOCIATE CONTRAST S PSC MATERIAL ECG 66908 [facility], ROUTINE 8 [facility] DEL A ECG MED CTR W/LEAST 12 LDS I&R ONLY Encounters Encounter Start End Date Code Location Performer Type Date OFFICE 17780 COLD OUTPATIEN 6 6 SPRING T NEW 45 URGENT MINUTES CARE PERIODIC 50315 [place] [facility] PREVENTIV 6 6 N CO N CO E MED EST [facility] PATIENT CENTER CENTER 18-39 YRS OFFICE 34180 [place] P[place] OUTPATIEN 6 6 N CO N CO T VISIT [facility] 10 [place] [facility] MINUTES OFFICE 33469 [place] [facility] OUTPATIEN 6 6 N CO N CO T NEW 20 [facility] C[facility] ST - 5 5 [facility] OUT[facility]IEN MED CTR T 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 ST EMERGENCY 89611 [facility] BRACKEN 5 5 EMERGENCY TANGELA DEPARTMEN T VISIT PHYSICIAN MODERATE S SEVERITY EMERGENCY 90833 ST 5 5 [facility] DEPARTMEN MED CTR T VISIT 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 ST LOW/MODER SEVERITY OFFICE 15028 [facility] 4 [facility] T VISIT HLTH DEPT HLTH DEPT 15 WALLY WALLY MINUTES OFFICE 32353 [place] [facility] OUTPATIEN 4 4 MEDICAL MAR T NEW 30 SERV MINUTES FOUNDATIO OFFICE 84245 [facility] OUT[facility] 4 4 [facility] T VISIT HLTH DEPT HLTH DEPT 25 WALLY WALLY MINUTES OFFICE 28301 [facility] OUT[facility] 4 4 [facility] T VISIT TH DEPT TH DEPT 15 WALLY WALLY MINUTES PERIODIC 33356 [facility] PREVENTIV 4 4 [facility] E MED EST HLTH DEPT HLTH DEPT PATIENT WALLY WALLY 18-[address] [facility] OUTPATIEN 3 3 [facility] ANTONELLA T VISIT 15 PHYSICIAN MINUTES S OFFICE 59900 [facility] 3 3 [facility] T VISIT HLTH DEPT TH DEPT 10 WALLY WALLY MINUTES OFFICE 15212 [facility] 3 3 [facility] T VISIT HLTH DEPT HLTH DEPT 10 WALLY WALLY MINUTES PERIODIC 53487 [facility] PREVENTIV 3 [facility] E MED EST HLTH DEPT HLTH DEPT PATIENT WALLY WALLY 18-39 YRS OFFICE 99653 [facility] 2 2 [facility] T VISIT TH DEPT [facility] DEPT 10 [facility] MINUTES OFFICE 82860 [facility] OUTPATIEN 2 2 [facility] T VISIT TH DEPT [facility] DEPT 10 [facility] MINUTES OFFICE 48227 JENNI ARTEAGA OUTPATIEN 2 2 [facility] HEALTH T VISIT CENTER CENTER [address]ES [address] [facility] OUTPATIEN 2 2 [facility] ANTONELLA T VISIT 25 PHYSICIAN MINUTES S OFFICE 41997 [facility] 2 2 [facility] T VISIT TH DEPT [facility] DEPT 15 WALLY [facility] MINUTES OFFICE [address] [facility] OUTPATIEN 2 2 [facility] ANTONELLA T VISIT 15 PHYSICIAN MINUTES S OFFICE 00826 JENNI ARTEAGA OUTPATIEN 2 2 [facility] HE[facility] T VISIT CENTER CENTER 25 MINUTES OFFICE 92134 JENNI ARTEAGA OUTPATIEN 2 2 [facility] HE[facility] T VISIT CENTER CENTER 25 MINUTES PERIODIC 08325 JENNI ARTEAGA PREVENTIV 2 2 [facility] HEALTH E MED EST CENTER CENTER PATIENT 12-17YRS EMER[address]ENCY [address] RANDOLPH TRO 1 1 [facility] DEPARTMEN MED CTR T VISIT LOW/MODER SEVERITY OFFICE 27541 JENNI ARTEAGA OUTPATIEN 1 1 [place] [employer] [place] [facility] CENTER CENTER 15 MINUTES OFFICE 24728 JENNI ARTEAGA OUTPATIEN 1 1 [facility] HE[facility] T VISIT CENTER CENTER 10 MINUTES OFFICE 48660 JENNI ARTEAGA OUTPATIEN 1 1 [facility] HE[facility] T VISIT CENTER CENTER [address] [facility] OUTPATIEN 1 1 [facility] ANTONELLA T VISIT 15 PHYSICIAN MINUTES S OFFICE 89985 JENNI ARTEAGA OUTPATIEN 1 1 [facility] VISIT CENTER CENTER [address]ES [address] KISHAN OUTPATIEN 1 1 [facility] ANTONELLA T VISIT 15 PHYSICIAN MINUTES S OFFICE 92582 [facility] KISHAN OUTPATIEN 1 1 [facility] ANTONELLA T VISIT 15 PHYSICIAN MINUTES S INITIAL 69028 JENNI ARTEAGA PREVENTIV 0 0 [facility] E CENTER CENTER MEDICINE NEW PT AGE 12-17 YR OFFICE 04125 [place] [facility] OUTPATIEN 0 0 N CO N CO T VISIT [facility] 15 [place] [facility] MINUTES OFFICE 62442 [place] P[place] OUTPATIEN 0 0 N CO N CO T VISIT [facility] 10 [place] [facility] MINUTES OFFICE 11554 [place] [facility] OUTPATIEN 0 0 N CO N CO T VISIT [facility] 15 CENTER CENTER MINUTES OFFICE 82900 [facility] [place] OUTPATI[facility] 9 9 HEALTH N CO T VISIT [facility] 10 [facility] ACCT CENTER MINUTES OFFICE 81958 DHS/CO [place] OUTPATIEN 9 9 HEALTH N CO T NEW 30 [facility] MINUTES [facility] ACCT CENTER OFFICE 21707 PATIENT SCHAJORDON, OUTPATIEN 9 9 FIRST ANA T VISIT PHYS 15 MINUTES OFFICE 55473 PATIENT SPEARS, OUTPATIEN 9 9 FIRST LORIN T VISIT PHYS 15 MINUTES OFFICE 04493 PATIENT SCHAJORDON, OUTPATIEN 8 8 FIRST ANA T VISIT PHYS 15 MINUTES OFFICE 83866 PATIENT KALFAS, OUTPATIEN 8 8 FIRST ROBERT C T VISIT PHYS 25 MINUTES EMERGENCY 58055 EMERGENCY RICHARD 8 8 [facility] PHYS T VISIT [facility] [address] [facility] 88912 PATIENT RAMILA HOLLEY 8 8 FIRST ANA T VISIT PHYS 25 MINUTES OFFICE 15295 PATIENT RAMILA HOLLEY 8 8 FIRST ANA T VISIT PHYS 25 MINUTES EMERGENCY 99152 [facility], DEPT 8 8 [place] ABREUONY VISIT MED [facility] HIGH SEVERITY& THREAT FUN OFFICE 59836 PATIENT RAMILA LEI 8 8 FIRST MONICA Johnson T VISIT PHYS 15 MINUTES OFFICE 86287 JAM POLK OUTPATIEN 8 8 GABRIEL RIOS T VISIT 10 MINUTES
--- OUTSIDE RECORDS SUMMARY | 2016-11-10 22:42 | External Medical Summary Rpt ---
Author Author , Organization [employer] Address Unknown Phone Unavailable Care Team Providers Care Chief Meter Reader Name Role Phone ALINA HONEYCUTT, ALINA Unavailable Unavailable TANGELA BRANDSER, KIM A, Unavailable Unavailable BRANDSER, KIM A JUNG, DEL A, Unavailable Unavailable JUNG, DEL A [facility] Unavailable CARE, [facility] SHAI JAM, SHAI JAM Unavailable Unavailable SHAI JAM, SHAI JAM Unavailable Unavailable BRUNA GUILHERME, Unavailable Unavailable BRUNA GUILHERME [facility] Unavailable Unavailable [facility], [facility] Unavailable Unavailable [facility], [facility] SOLOMONELBA GALICIA SOLOMON Unavailable Unavailable MAR KALFAS, ROBERT C, Unavailable Unavailable KALFAS, ROBERT C [facility] Un[facility], [facility] Unavailable Unavailable LAB, [facility] Unavailable Unavailable [facility] Unavailable [facility]available [facility], [facility], Unavailable Unavailable [facility] ELE BARBA, Unavailable Unavailable EDWARD MONTGOMERY JR, Unavailable Unavailable EDWARD MONTANA TRO, ROCK TRO Unavailable Unavailable KISHAN LUDWIG Unavailable Unavailable ANA MCCLELLAN, Unavailable Unavailable ANA HOLLEY MICHAEL G, Unavailable Unavailable MONICA LEI [facility], Unavailable Unavailable [facility] Unavailable Unavailable [facility]ATTLE [facility] WORKER ST, [facility] Unavailable Unavailable [facility]ICIANS, [facility] Unavailable Unavailable [facility], [facility] [address]RE[address], Unavailable Unavailable GABRIEL POLK SHELBY, Unavailable Unavailable LORIN SPEARS [facility] Unavailable Unavailable #5, [facility] Unavailable Unavailable DEPT [facility], [facility] DEPT [facility] Unavailable Unavailable DEPT [facility], [facility] DEPT [facility] Purpose Continuity of Care Document - 08-07-2007 through 2016 Problems Code Diagnosis DOS Provider Status J0190 ACUTE 05-04-2016 [facility] UNSPECIFIED CARE J029 ACUTE 05-04-2016 [facility]NG[facility] UNSPECIFIED R110 NAUSEA 05-04-2016 [facility] R599 ENLARGED 05-04-2016 [facility] LYMPH NODES [facility] UNSPECIFIED [id number] ENCOUNTER 03-08-2016 [facility] IN[facility]IAL [facility] N CONTRACEPTI VE UNS W24124 ENCOUNTER 03-02-2016 [facility] PRESCRIPTIO [facility] N EMERGENCY CENTER CONTRACEPTI ON Z3189 ENCOUNTER 03-02-2016 [facility] FOR OTHER [facility] PROCREATIVE CENTER MANAGEMENT R509 FEVER 09-16-2015 [facility] UNSPECIFIED [facility] CENTER N939 ABNORMAL 06-18-2015 [facility]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 UNSPECIFIED R102 PELVIC AND 06-18-2015 ST PERINEAL [facility] PAIN [facility] CATTLE ALLEY WORKER ST 6143 ACUTE 12-25-2013 [facility] DEPT PELVIC WALLY CELLULITIS V2549 SURVEILLANC 12-25-2013 [facility] E OTH PREV DISTRICT PRSC [facility] DEPT CONTRACEPT WALLY METHOD 6250 DYSPAREUNIA 10-15-2013 [facility] 6149 UNSPEC 09-11-2013 [facility] INFLAM DISTRICT DISEASE FE [facility] DEPT PELVIC WALLY ORGANS&TISS UES V2689 OTHER 09-11-2013 [facility] SPECIFIED DISTRICT PROCREATIVE [facility] DEPT MANAGEMENT WALLY 7336 TIETZES 02-12-2013 DISE[facility] 2662 OTHER 01-11-2012 JENNI LUNDY [facility] S 2512 HYPOGLYCEMI 12-29-2011 ABARBARATH UNSPECIFIED PHYSICIANS 7962 ELEVATED BP 12-29-2011 READING [facility] WITHOUT DX PHYSICIANS HYPERTENSIO N V2541 SURVEILLANC 10-22-2011 [facility] E PREV DISTRICT PRESCRIBED [facility] DEPT CONTRACEPT WALLY PILL 463 ACUTE 09-27-2011 TONSILLITIS [facility] 92960 UNSPECIFIED 08-17-2011 [facility] VULVOVAGINI TIS 3671 MYOPIA 08-12-2011 SHAI JAM 82704 NONGONOCOCC 07-27-2011 J[facility]NI [facility] URETHRITIS CENTER DUE CHLAMYDTRAC HOMATIS V7231 ROUTINE 07-27-2011 PATHOLOGY & GYNECOLOGIC CYTOLOGY AL LAB EXAMINATION 9140 HAND NO 06-04-2011 ST [facility] ABRAS/FRIC BURN W/O INF V2509 OT GENERAL 02-19-[address] [facility] [place] [place] [facility] CONTRACEPT MANAGEMENT 26191 MIGRAINE 10-26-2010 ST UNSP W/O [facility] INTRACT W/O PHYSICIANS STATUS MIGRAINOSUS 4619 ACUTE 09-04-2010 SINUSITIS, [facility] UNSPECIFIED PHYSICIANS 5589 OTH&UNSPEC 08-04-2010 NONINFECTIO [facility] US [facility] GASTROENTER ITIS&COLITI S V1582 PERS HX 06-30-[address] [facility] [place] [place] [facility] V7643 SCREENING 06-30-[address] [facility] [place] [place] [facility] MALIGNANT C[facility] NEOPLASM OF THE SKIN V2502 GENERAL 10-21-2009 [facility] CNSL [facility] INITIATION C[facility] OTH CONTRACEPT MEASURES V2501 GENERAL 02-25-2009 [facility]SEL[facility] PRESCRIPTIO CENTRAL N ORAL BANK ACCT CONTRACEPTS 3829 UNSPECIFIED 10-01-2008 PATIENT OTITIS FIRST PHYS MEDIA 63474 UNSPECIFIED 09-17-2008 PATIENT INFECTIVE FIRST PHYS OTITIS EXTERNA 075 INFECTIOUS 06-27-2008 PATIENT MONONUCLEOS FIRST PHYS IS 7840 HEADACHE 03-06-2008 PATIENT FIRST PHYS 56598 OTHER 03-05-2008 ST SPECIFIED [facility] DYSRHYTHMIA S 7802 SYNCOPE AND 03-05-2008 ST COLLAPSE [facility] 64480 NONSPECIFIC 03-05-2008 ST ABNORMAL [facility] ELECTROCARD MED [...] 28 CE 1 19 CV TA S NH PH NO AR PH MA EN CY [...] NO complet T 013 ed 09:30 CHART 08-30- NA complet NUMBER 013 ed 09:30 Chlamyd 08-30- Pending complet ia 013 ed trachom 09:30 atis rRNA [Presen ce] in Unspeci fied specime n by Probe & target amplifi cation method Neisser Pending complet ia 013 ed gonorrh 09:30 oeae rRNA [Presen ce] in Unspeci fied specime n by Probe & target amplifi cation method Procedures Procedure DOS Code Location Performer Comment IAADIADOO 18452 [facility]OLD [facility] spring [facility] CCUS CARE CARE GROUP A IADNA 96647 [facility] CHLAMYDIA 6 N CO N CO [facility] TRACHOMAT [facility] CENTER IS AMPLIFIED PROBE TQ WET Q0111 [facility] REUBEN 6 N CO N CO INCL PREP [facility] VAGINAL [facility] CERV/SKIN SPECIMENS AMINES 94301 [facility] VAGINAL 6 N CO N CO FLUID [facility] QUALITATI ODIN CENTER VE IADNA 32513 [facility] NEISSERIA 6 N CO N CO [facility] GONORRHOE CENTER ODIN AE AMPLIFIED PROBE TQ CONTRACEP S4993 [facility] TIVE 6 N CO N CO PILLS FOR [facility] ODIN CENTER CONTROL CONTRACEP S4993 [facility] TIVE 6 N CO N CO PILLS FOR [facility] ODIN CENTER CONTROL URINE 50211 [facility] P[facility] 6 N CO N CO TEST [facility] VISUAL ODIN CENTER COLOR CMPRSN METHS GONADOTRO [address] PIN 5 [facility] MED CTR C[facility]LEY WORK[facility] WORK[facility] ST QUALITATI VE IAADIADOO [address] 5 [facility] WORKER ST VAGINALIS IADNA [address] NEISSERIA 5 [facility] MED CTR GONORRHOE [facility]ATTLE [facility] WORKER [facility] CATTLE [facility] WORKER ST AE AMPLIFIED PROBE TQ COLLECTIO [address] [facility]ENIPUNCT [facility] WORK[facility] WORKER ST URE IADNA [address] CHLAMYDIA 5 [facility] CTR MED CTR TRACHOMAT CATTLE [facility]LEY WORKER [facility] CATTLE ALLEY WORKER ST IS AMPLIFIED PROBE TQ INJECTION J1050 [facility] WALLY WALLY E ACETATE 1 MG INJECTION J1050 [facility] WALLY WALLY E ACETATE 1 MG IADNA 25271 [facility] CHLAMYDIA 4 [facility] DEPT TRACHOMAT WALLY WALLY IS AMPLIFIED PROBE TQ IADNA 67238 [facility] NE[facility]IA [facility] DEPT GONORRHOE WALLY WALLY AE AMPLIFIED PROBE TQ INJECTION J1050 [facility] WALLY E ACETATE 1 MG INJECTION J1050 [facility] DEPT OGESTERON [facility] WALLY E ACETATE 1 MG INJECTION J1050 [facility] WALLY E ACETATE 1 MG IADNA 00896 [facility] CHLAM[facility]DIA [facility] DEPT TRACHOMAT WALLY WALLY IS AMPLIFIED PROBE TQ IADNA 89506 [facility] NEISSERIA [facility] DEPT GONORRHOE WALLY WALLY AE AMPLIFIED PROBE TQ INJ J1055 JENNI ARTEAGA MDRXYPRGE 2 [facility] HEALTH STRON CENTER CENTER ACTAT CNTRACPT USE 150 MG URINE 23213 JENNI ARTEAGA 2 [facility] HEALTH TEST CENTER CENTER VISUAL COLOR CMPRSN METHS CONTRACEP S4993 [facility] TIVE 2 DISTRICT DISTRICT PILLS FOR [facility] DEPT [facility] DEPT WALLY WALLY CONTROL URNLS DIP 57161 JENNI JENNI 2 [facility] HEALTH STICK/TAB CENTER CENTER LET RGNT NON-AUTO W/O MICRSCP OPHTH 68236 SHAI GARCIA MEDICAL 2 XM&EVAL COMPRE NEW PT 1/> VST SPHERE V2100 SHAI GARCIA SINGLE 2 [place]ISION [place] +/- 4.00 PER LENS FRAMES V2020 SHAI GACRIA PURCHASES 2 FITTING 43848 SHAI GARCIA SPECTACLE 2 S XCPT APHAKIA MONOFOCAL DETERMINA 59174 SHAI GARCIA TION 2 REFRACTIV E STATE LENS V2784 SHAI GARCIA POLYCARBO 2 BISI OR EQUAL ANY INDEX PER LENS ALL Q0112 JENNI ARTEAGA POTASSIUM 2 [facility] HYDROXIDE PREPARATI ONS IADNA 40519 JENNI MENJIVARON CHLAMYDIA 2 [facility] TRACHOMAT IS AMPLIFIED PROBE TQ SMR PRIM 45523 JENNI MENJIVARON SRC WET 2 [facility] C[facility] NFCT AGT INJ J1055 JENNI ARTEAGA MDRXYPRGE 2 [facility] ACTAT CNTRACPT USE 150 MG CYTP 64570 PATHOLOGY PICKLESIM CERV/VAG 2 & ER JR FREDA AUTO THIN CYTOLOGY LAYER LAB PREP MNL SCREEN URNLS DIP 13934 JENNI ARTEAGA 2 [facility] HEALTH STICK/TAB CENTER CENTER LET RGNT NON-AUTO W/O MICRSCP WET Q0111 JENNIBRI MENJIVARON REUBEN 2 [facility] HEALTH INCL PREP CENTER CENTER VAGINAL CERV/SKIN SPECIMENS IADNA 73860 JENNI ARTEAGA NEISSERIA 2 [facility] HEALTH [facility] GONORRHOE AE AMPLIFIED PROBE TQ PH BODY 91704 JENNI ARTEAGA FLUID NOT 2 [facility] ELSEWHERE SPECIFIED AMINES 20919 JENNI ARTEAGA VAGINAL 2 [facility] FLUID [facility] CENTER QUALITATI VE INJ J1055 JENNI MENJIVARON MDRXYPRGE 1 [facility] ACTAT CNTRACPT USE 150 MG INJ J1055 JENNI MENJIVARON MDRXYPRGE 1 [facility] HEALTH STRON CENTER CENTER ACTAT CNTRACPT USE 150 MG INJ J1055 JENNI ARTEAGA MDRXYPRGE 1 [facility] CNTRACPT USE 150 MG INJ J1055 JENNI ARTEAGA MDRXYPRGE 1 [facility]] ACTAT CNTRACPT USE 150 MG INJ J1055 J[facility]A [facility]XYPRGE [facility] ACTAT CNTRACPT USE 150 MG INJ J1055 [facility] MDRXYPRGE 0 N [facility] CENTER CNTRACPT USE 150 MG IADNA 74176 [facility] P[facility] CHLAMYDIA 0 N CO N [facility] TRACHOMAT CENTER ODIN IS AMPLIFIED PROBE TQ IADNA 20352 [facility] P[facility] NEISSERIA 0 N CO N [facility] GONORRHOE CENTER ODIN AE AMPLIFIED PROBE TQ INJ J1055 [facility] MDRXYPRGE 0 N CO N [facility] CENTER CNTRACPT USE 150 MG INJ J1055 [facility] MDRXYPRGE 0 N CO N [facility] ODIN CNTRACPT USE 150 MG BLOOD 91267 [facility] COUNT 0 N CO N CO HEMOGLOBI [facility] N CENTER CENTER CONTRACEP S4993 [facility] TIVE 9 HEALTH N CO [facility]ILL[facility] BANK ACCT CENTER CONTROL CONTRACEP S4993 DHS/CO [facility] TIVE 9 HEALTH N CO PILLS FOR [facility] BANK ACCT CENTER CONTROL COMPREHEN 97565 PATIENT KALFAS, SIVE 8 FIRST ROBERT C METABOLIC PHYS PANEL URNLS DIP [address] STICK/TAB [facility] LET RGNT AUTO W/O MICROSCOP Y HETEROPHI [address] ANTIBODIE [facility] S SCREEN IAADIADOO [address] STREPTOCO [facility] CCUS GROUP A BLOOD 15386 [facility] COUNT 8 [facility] HOSP[facility] COMPLETE [facility] AUTO&AUTO DIFRNTL WBC BASIC 83233 [facility] METABOLIC 8 [facility] PANEL [facility] CALCIUM TOTAL CUL 92835 [facility] PRSMPTV 8 [facility] PTHGNC [facility] ORGANISM SCRN W/COLONY ESTIMJ [place] [address] [facility], ROUTINE 8 [facility] DEL A ECG MED CTR W/LEAST 12 LDS I&[place] [address] RADIOLOGY BRANDSER, HEAD/BRAI 8 KIM A N W/O ASSOCIATE CONTRAST S PSC MATERIAL Encounters Encounter Start End Date Code Location Performer Type Date OFFICE 04644 [facility] OUTPATIEN 6 6 SPRING T NEW 45 URGENT MINUTES CARE PERIODIC 96239 [facility] P[facility] PREVENTIV 6 6 N CO N CO E MED EST [facility] HEALTH PATIENT CENTER CENTER 18-39 YRS OFFICE 93615 [facility] P[facility] OUTPATIEN 6 6 N CO N CO T VISIT [facility] 10 CENTER CENTER MINUTES OFFICE 54240 [facility] [facility] OUTPATIEN 6 6 N CO N CO T NEW 20 [facility] MINUTES CENTER CENTER EMERGENCY 94294 [facility] BRACKEN 5 5 EMERGENCY TANGELA DEPARTMEN T VISIT PHYSICIAN MODERATE S SEVERITY EMERGENCY [address] ST 5 5 [facility] DEPARTMEN MED CTR T VISIT [facility]ATT[facility] WORKER LOW/MODER SEVERITY HOSPITAL ST - 5 5 [facility] OUT[facility] CTR T CATT[place] ALLEY WORKER OFFICE 00666 [facility] 4 4 [facility] T VISIT [facility] DEPT [facility] DEPT 15 WALLY WALLY MINUTES OFFICE 75529 [place] [facility] 4 4 MEDICAL MAR T NEW 30 SERV MINUTES FOUNDATIO OFFICE 83301 [facility] OUTPATIEN 4 4 [facility] T VISIT [facility] DEPT [facility] DEPT 25 WALLY WALLY MINUTES PERIODIC 04239 [facility] PREVENTIV 4 4 [facility] E MED EST HLTH DEPT HLTH DEPT PATIENT [facility] WALLY 18-39 YRS OFFICE 55388 [facility] 4 4 [facility] T VISIT HLTH DEPT HLTH DEPT 15 WALLY WALLY MINUTES OFFICE 41504 [facility] OUT[facility] 3 3 [facility] ANTONELLA T VISIT 15 PHYSICIAN MINUTES S OFFICE 20505 [facility] 3 3 [facility] T VISIT HLTH DEPT HLTH DEPT 10 [facility] WALLY MINUTES OFFICE 89551 [facility] 3 3 [facility] T VISIT HLTH DEPT HLTH DEPT 10 [facility] WALLY MINUTES PERIODIC 50133 [facility] PREVENTIV 3 3 [facility] E MED EST HLTH DEPT HLTH DEPT PATIENT [facility] 18-39 YRS OFFICE 52790 [facility] OUT[facility] 2 2 [facility] T VISIT HLTH DEPT HLTH DEPT 10 [facility] WALLY MINUTES OFFICE 40811 [facility] 2 2 [facility] T VISIT HLTH DEPT HLTH DEPT 10 [facility] WALLY MINUTES OFFICE 90472 JENNI JENNI OUTPATIEN 2 2 [facility] C[facility] [address]ES [address] [facility] OUT[facility] 2 2 [facility] ANTONELLA T VISIT 25 PHYSICIAN MINUTES S OFFICE 21740 [facility] 2 2 [facility] T VISIT HLTH DEPT HLTH DEPT 15 WALLY WALLY MINUTES OFFICE 48390 [facility] OUT[facility] 2 2 [facility] ANTONELLA T VISIT 15 PHYSICIAN MINUTES S OFFICE 81544 JENNI JENNI [facility]PATIEN 2 [facility] 25 MINUTES OFFICE 63567 JENNI JENNI OUTPATIEN 2 2 [facility] VISIT CENTER CENTER 25 MINUTES PERIODIC 38730 JENNI ARTEAGA PREVENTIV 2 2 CO [facility] MED EST CENTER CENTER PATIENT 12-17YRS EMERGENCY [address] [facility] 1 1 [facility] DEPARTMEN MED CTR T VISIT LOW/MODER SEVERITY OFFICE 85667 JENNI ARTEAGA OUTPATIEN 1 1 [facility] T VISIT CENTER CENTER 15 MINUTES OFFICE 93210 JENNI ARTEAGA OUTPATIEN 1 1 [facility] VISIT CENTER CENTER 10 MINUTES OFFICE 65794 JENNI ARTEAGA OUTPATIEN 1 1 [facility] T VISIT CENTER CENTER [address] [facility] OUT[facility] 1 1 [facility] ANTONELLA T VISIT 15 PHYSICIAN MINUTES S OFFICE 86505 JENNI ARTEAGA OUTPATIEN 1 1 [facility] T VISIT CENTER CENTER [address] [facility] OUTPATIEN 1 1 [facility] ANTONELLA T VISIT 15 PHYSICIAN MINUTES S OFFICE [address] [facility] OUT[facility] 1 1 [facility] ANTONELLA T VISIT 15 PHYSICIAN MINUTES S INITIAL 21806 JENNI ARTEAGA PREVENTIV 0 0 [facility] E CENTER CENTER MEDICINE NEW PT AGE 12-17 YR OFFICE 27272 [facility] OUTPATIEN 0 0 N CO N CO T VISIT HEALTH HEALTH 15 CENTER CENTER MINUTES OFFICE 61282 [facility] OUTPATIEN 0 0 N CO N CO T VISIT HEALTH [facility] 10 CENTER CENTER MINUTES OFFICE 60570 [facility] OUTPATIEN 0 0 N CO N CO T VISIT HEALTH [facility]ALTH 15 CENTER CENTER MINUTES OFFICE 96379 [facility] OUTPATIEN 9 9 HEALTH N CO T VISIT [facility] 10 BANK ACCT CENTER MINUTES OFFICE 74937 DHS/CO [facility] OUTPATIEN 9 9 HEALTH N CO T NEW [facility] MIN[facility] ACCT CENTER OFFICE 72277 PATIENT KISHAN OUTKRISTINEEN 9 9 FIRST ANA T VISIT PHYS 15 MINUTES OFFICE 15826 PATIENT TORY OUTPATIEN 9 9 FIRST LORIN T VISIT PHYS 15 MINUTES OFFICE 85939 PATIENT KISHAN OUTULISES 8 8 FIRST ANA T VISIT PHYS 15 MINUTES OFFICE 74271 PATIENT ALLYN OUTPATIEN 8 8 FIRST ROBERT C T VISIT PHYS 25 MINUTES [facility] - 8 8 [facility] T EMERGENCY 55946 EMERGENCY [facility] 8 8 [facility] PHYS T VISIT [place] SEVERITY OFFICE 18849 PATIENT RAMILA HOLLEY 8 8 FIRST ANA T VISIT PHYS 25 MINUTES OFFICE 62520 PATIENT KISHAN OUTULISES 8 8 FIRST ANA T VISIT PHYS [address] [place], DEPT 8 8 [facility] VANEGAS VISIT MED CTR HIGH SEVERITY& THREAT FUNCJ OFFICE 70317 PATIENT RAMILA LEI 8 8 FIRST MONICA Johnson T VISIT PHYS 15 MINUTES OFFICE 80013 JAM POLK OUTULISES 8 8 GABRIEL RIOS T VISIT 10 MINUTES
--- OUTSIDE RECORDS SUMMARY | 2016-11-10 22:42 | External Medical Summary Rpt ---
Author Author , Organization [employer] Address Unknown Phone Unavailable Care Team Providers Care Video Tape Transferrer Name Role Phone ALINA HONEYCUTT, ALINA Unavailable Unavailable TANGELA BRANDSER, KIM A, Unavailable Unavailable BRANDSER, KIM A JUNG, DEL A, Unavailable Unavailable JUNG, DEL A [facility] Unavailable [facility], [facility] SHAI JAM, SHAI JAM Unavailable Unavailable SHAI JAM, SHAI JAM Unavailable Unavailable BRUNA GUILHERME, Unavailable Unavailable BRUNA GUILHERME [facility] Unavailable Unavailable [place], [facility] Unavailable Unavailable [place], [facility] SOLOMONELBA GALICIA SOLOMON Unavailable Unavailable MAR KALFAS, ROBERT C, Unavailable Unavailable KALFAS, ROBERT C [facility] Unavailable Unavailable LAB, PATHOLOGY & CYTOLOGY LAB [facility] Unavailable Unavailable [facility], [facility] Unavailable Unavailable [facility], [facility], Unavailable Unavailable [facility] ELE BARBA, Unavailable Unavailable EDWARD MONTGOMERY JR, Unavailable Unavailable EDWARD MONTANA TRO, ROCK TRO Unavailable Unavailable KISHAN LUDWIG Unavailable Unavailable ANA MCCLELLAN, Unavailable Unavailable ANA HOLLEY MICHAEL G, Unavailable Unavailable MONICA LEI [facility], Unavailable Unavailable [facility] Unavailable Unavailable [facility], [facility] Unavailable Unavailable [facility]ICIANS, [facility] Unavailable Unavailable [facility], [facility] [address], Unavailable Unavailable GABRIEL POLK SHELBY, Unavailable Unavailable LORIN SPEARS [facility] Unavailable Unavailable #5, [facility] Unavailable Unavailable DEPT [facility], [facility] DEPT [facility] Unavailable [facility]available [facility], [facility] Purpose Continuity of Care Document - 08-07-2007 through 2016 Problems Code Diagnosis DOS Provider Status J0190 ACUTE 05-04-2016 [facility] SINUSITIS URGENT UNSPECIFIED CARE J029 ACUTE 05-04-2016 [facility] PHARYNGITIS [facility]ARE UNSPECIFIED R110 NAUSEA 05-04-2016 [facility] R599 ENLARGED 05-04-2016 [facility] LYMPH NODES URGENT CARE UNSPECIFIED C43008 ENCOUNTER 03-08-2016 [place] [facility]IAL [facility] CONTRACEPTI VE UNS U41147 ENCOUNTER 03-02-2016 [place] PRESCRIPTIO [facility] N EMERGENCY CENTER CONTRACEPTI ON Z3189 ENCOUNTER 03-02-2016 [place] FOR OTHER [facility] PROCREATIVE CENTER MANAGEMENT R509 FEVER 09-16-2015 [place] UNSPECIFIED [facility] CENTER N939 ABNORMAL 06-18-2015 [facility] FRAME AND SCRAP CRUSHER BLEEDING ST UNSPECIFIED R102 PELVIC AND 06-18-2015 ST PERINEAL [facility] PAIN [facility] FRAME AND SCRAP CRUSHER [facility] 6143 ACUTE 12-25-2013 [facility] PARAMETRITI [facility] S AND [facility] DEPT PELVIC WALLY CELLULITIS V2549 SURVEILLANC 12-25-2013 [facility] E OTH PREV DISTRICT PRSC [facility] DEPT CONTRACEPT WALLY METHOD 6250 DYSPAREUNIA 10-15-2013 [facility] 6149 UNSPEC 09-11-2013 [facility] INFLAM DISTRICT DISEASE FE [facility] DEPT PELVIC WALLY ORGANS&TISS UES V2689 OTHER 09-11-2013 [facility] SPECIFIED DISTRICT PROCREATIVE [facility] DEPT MANAGEMENT WALLY 7336 TIETZES 02-12-2013 DISEASE [facility] 2662 OTHER 01-11-2012 [facility] LUNDY [facility] S 2512 HYPOGLYCEMI 12-29-2011 ABARBAR[facility] UNSPECIFIED PHYSICIANS 7962 ELEVATED BP 12-29-2011 READING [facility] WITHOUT DX PHYSICIANS HYPERTENSIO N V2541 SURVEILLANC 10-22-2011 [facility] E PREV DISTRICT PRESCRIBED [facility] DEPT CONTRACEPT WALLY PILL 463 ACUTE 09-27-2011 TONSILLITIS [facility] 70147 UNSPECIFIED 08-17-2011 [facility] [place] VULVOVAGINI TIS 3671 MYOPIA 08-12-2011 SHAI JAM 90459 NONGONOCOCC 07-27-2011 J[facility] URETHRITIS CENTER DUE CHLAMYDTRAC HOMATIS V7231 ROUTINE 07-27-2011 PATHOLOGY & GYNECOLOGIC CYTOLOGY AL LAB EXAMINATION 9140 HAND NO 06-04-2011 ST F[facility]ER [facility]ONE [facility] ABRAS/FRIC BURN W/O INF V2509 OT GENERAL 02-19-2011 [facility] HEALTH CNSL&ADVICE CENTER CONTRACEPT MANAGEMENT 31465 MIGRAINE 10-26-2010 ST UNSP W/O [facility] INTRACT W/O PHYSICIANS STATUS MIGRAINOSUS 4619 ACUTE 09-04-2010 SINUSITIS, [facility] UNSPECIFIED PHYSICIANS 5589 OTH&UNSPEC 08-04-2010 NONINFECTIO [facility] US [facility] GASTROENTER ITIS&COLITI S V1582 PERS HX 06-30-2010 [facility] TOBACCO USE HEALTH PRESENTING CENTER HAZARDS HEALTH V7643 SCREENING 06-30-2010 [facility] FOR HEALTH MALIGNANT CENTER NEOPLASM OF THE SKIN V2502 GENERAL 10-21-2009 [facility] OTH CONTRACEPT MEASURES V2501 GENERAL 02-25-2009 [facility]SELING [facility] PRESCRIPTIO CENTRAL N ORAL BANK ACCT CONTRACEPTS 3829 UNSPECIFIED 10-01-2008 PATIENT OTITIS FIRST PHYS MEDIA 96319 UNSPECIFIED 09-17-2008 PATIENT INFECTIVE FIRST PHYS OTITIS EXTERNA 075 INFECTIOUS 06-27-2008 PATIENT MONONUCLEOS FIRST PHYS IS 7840 HEADACHE 03-06-2008 PATIENT FIRST PHYS 58809 OTHER 03-05-2008 ST SPECIFIED [facility] DYSRHYTHMIA S 7802 SYNCOPE AND 03-05-2008 ST COLLAPSE [facility] 98753 NONSPECIFIC 03-05-2008 ST ABNORMAL [facility] ELECTROCARD MED [...] 28 CE 1 19 CV TA S TX PH NO AR PH MA EN CY [...] Procedure DOS Code Location Performer Comment IAADIADOO 61401 COLD [facility] spring STRE[facility] URGENT URGENT CCUS CARE CARE GROUP A IADNA 06725 [place] [facility] CHLAMYDIA 6 N CO N CO [facility] TRACHOMAT [place] [facility] IS AMPLIFIED PROBE TQ WET Q0111 [place] REUBEN 6 N CO N CO INCL PREP [facility] VAGINAL [facility] CERV/SKIN SPECIMENS AMINES 05560 [place] VAGINAL 6 N CO N CO FLUID [facility] QUALITATI [place] [facility] VE IADNA 21258 [place] P[place] NEISSERIA 6 N CO N CO [facility] GONORRHOE CENTER [place] AE AMPLIFIED PROBE TQ CONTRACEP S4993 [place] TIVE 6 N CO N CO PILLS FOR [facility] [place] [facility] CONTROL CONTRACEP S4993 [place] TIVE 6 N CO N CO PILLS FOR [facility] [place] [facility] CONTROL URINE 04506 [place] P[place] 6 N CO N CO TEST [facility] VISUAL [place] [facility] COLOR CMPRSN METHS GONADOTRO [address] PIN 5 [facility] CTR FRAME AND SCRAP [facility] FRAME AND SCRAP CRUSHER ST QUALITATI VE IAADIADOO [address] 5 [facility] TRICHOMON [facility] CTR MED CTR FRAME AND SCRAP CRUSHER ST FRAME AND SCRAP CRUSHER ST VAGINALIS IADNA [address] NEISSERIA 5 [facility] MED CTR GONORRHOE FRAME AND SCRAP CRUSHER ST FRAME AND SCRAP CRUSHER ST AE AMPLIFIED PROBE TQ COLLECTIO [address] N VENOUS [facility] MED CTR VENIPUNCT FRAME AND SCRAP CRUSHER ST FRAME AND SCRAP CRUSHER ST URE IADNA [address] CHLAMYDIA 5 [facility] CTR MED CTR TRACHOMAT FRAME AND SCRAP CRUSHER ST FRAME AND SCRAP CRUSHER ST IS AMPLIFIED PROBE TQ INJECTION J1050 [facility] [place] WALLY WALLY E ACETATE 1 MG INJECTION J1050 [facility] [place] WALLY WALLY E ACETATE 1 MG IADNA 53633 [facility] CHLAMYDIA 4 [facility] DEPT TRACHOMAT WALLY WALLY IS AMPLIFIED PROBE TQ IADNA 14442 [facility] NEISSERIA 4 DISTRICT [facility] DE[facility] GONORRHOE WALLY WALLY AE AMPLIFIED PROBE TQ INJECTION J1050 [facility] MEDROXYPR [facility] WALLY E ACETATE 1 MG INJECTION J1050 [facility] WALLY E ACETATE 1 MG INJECTION J1050 [facility] WALLY E ACETATE 1 MG IADNA 95404 [facility] CHLAMYDIA 3 DISTRICT [facility] DE[facility] TRACHOMAT WALLY WALLY IS AMPLIFIED PROBE TQ IADNA 83636 [facility] NEISSERIA 3 [facility] DEPT GONORRHOE WALLY WALLY AE AMPLIFIED PROBE TQ INJ J1055 J[facility] ARTEAGA MDRXYPRGE 2 [facility] C[facility] ACTAT CNTRACPT USE 150 MG URINE 29551 JENNI ARTEAGA 2 [facility] TEST [facility] CENTER VISUAL COLOR CMPRSN METHS CONTRACEP S4993 [facility] TIVE 2 DISTRICT DISTRICT PILLS FOR [facility] DE[facility] DEPT WALLY WALLY CONTROL URNLS DIP 97959 JENNI JENNI 2 [facility] STICK/TAB CENTER CENTER LET RGNT NON-AUTO W/O MICRSCP OPHTH 21965 SHAI GARCIA MEDICAL 2 XM&EVAL COMPRE NEW PT 1/> VST SPHERE V2100 SHAI GARCIA SINGLE 2 VISION PLANO +/- 4.00 PER LENS FRAMES V2020 SHAI GARCIA PURCHASES 2 FITTING 44545 SHAI GARCIA SPECTACLE 2 S XCPT APHAKIA MONOFOCAL DETERMINA 74459 SHAI GARCIA TION 2 REFRACTIV E STATE LENS V2784 SHAI GARCIA POLYCARBO 2 BISI OR EQUAL ANY INDEX PER LENS ALL Q0112 JENNI ARTEAGA POTASSIUM 2 [facility] CENTER HYDROXIDE PREPARATI ONS IADNA 02972 JENNI MENJIVARON CHLAMYDIA 2 [facility] CENTER TRACHOMAT IS AMPLIFIED PROBE TQ SMR PRIM 89322 JENNI MENJIVARON SRC WET 2 [facility] NFCT AGT INJ J1055 JENNI ARTEAGA MDRXYPRGE 2 [facility] [place] [facility] ACTAT CNTRACPT USE 150 MG CYTP 57453 PATHOLOGY PICKLESIM CERV/VAG 2 & ER JR FREDA AUTO THIN CYTOLOGY LAYER LAB PREP MNL SCREEN URNLS DIP 00804 JENNI ARTEAGA 2 [facility] STICK/TAB CENTER CENTER LET RGNT NON-AUTO W/O MICRSCP WET Q0111 JENNIBRI MENJIVARON REUBEN 2 [facility] INCL PREP CENTER CENTER VAGINAL CERV/SKIN SPECIMENS IADNA 27936 JENNI ARTEAGA NEISSERIA 2 [facility] GONORRHOE AE AMPLIFIED PROBE TQ PH BODY 95262 JENNI ARTEAGA FLUID NOT 2 [facility] CENTER ELSEWHERE SPECIFIED AMINES 36280 JENNI ARTEAGA VAGINAL 2 [facility] [place] [facility] QUALITATI VE INJ J1055 JENNI MENJIVARON MDRXYPRGE 1 [facility] S[facility] [place] [facility] ACTAT CNTRACPT USE 150 MG INJ J1055 JENNI MENJIVARON MDRXYPRGE 1 [facility] CENTER ACTAT CNTRACPT USE 150 MG INJ J1055 JENNI ARTEAGA MDRXYPRGE 1 [facility] ACTAT CNTRACPT USE 150 MG INJ J1055 JENNI ARTEAGA MDRXYPRGE 1 [facility] ACTAT CNTRACPT USE 150 MG INJ J1055 JENNI ARTEAGA MDRXYPRGE 0 [facility] ACTAT CNTRACPT USE 150 MG INJ J1055 [place] MDRXYPRGE 0 N CO N [facility] ACTAT CENTER CENTER CNTRACPT USE 150 MG IADNA 75947 [place] CHLAMYDIA 0 N CO N [facility] TRACHOMAT CENTER [place] IS AMPLIFIED PROBE TQ IADNA 94016 [place] NEISSERIA 0 N CO N [facility] GONORRHOE CENTER [place] AE AMPLIFIED PROBE TQ INJ J1055 [place] MDRXYPRGE 0 N CO N [facility] ACTAT CENTER CENTER CNTRACPT USE 150 MG INJ J1055 [place] MDRXYPRGE 0 N CO N [facility] ACTAT CENTER [place] CNTRACPT USE 150 MG BLOOD 35130 [place] COUNT 0 N CO N CO HEMOGLOBI [facility] N CENTER CENTER CONTRACEP S4993 DHS/CO [place] TIVE 9 HEALTH N CO PILLS FOR [facility] BANK ACCT CENTER CONTROL CONTRACEP S4993 DHS/CO [place] TIVE 9 HEALTH N CO [facility] BANK ACCT CENTER CONTROL COMPREHEN 31967 PATIENT KALFAS, SIVE 8 FIRST ROBERT C METABOLIC PHYS PANEL URNLS DIP [address] STICK/TAB [facility] LET RGNT AUTO W/O MICROSCOP Y HETEROPHI [address] ANTIBODIE [facility] S SCREEN IAADIADOO [address] STREPTOCO [facility] CCUS GROUP A BLOOD 46578 [facility] COUNT 8 [facility] COMPLETE [facility] EAST AUTO&AUTO DIFRNTL WBC BASIC 56655 [facility] METABOLIC 8 [facility] PANEL [facility] CALCIUM TOTAL CUL 72757 [facility] PRSMPTV 8 [facility] PTHGNC [facility] ORGANISM SCRN W/COLONY ESTIMJ ECG [address] [facility], ROUTINE 8 [facility] DEL A ECG MED CTR W/LEAST 12 LDS I&[place] [address] RADIOLOGY BRANDSER, HEAD/BRAI 8 KIM A N W/O ASSOCIATE CONTRAST S PSC MATERIAL Encounters Encounter Start End Date Code Location Performer Type Date OFFICE 30231 COLD OUTPATIEN 6 6 SPRING T NEW 45 URGENT MINUTES CARE PERIODIC 56271 [place] P[place] PREVENTIV 6 6 N CO N CO E MED EST [facility] HEALTH PATIENT CENTER CENTER 18-39 YRS OFFICE 88356 [place] OUTPATIEN 6 6 N CO N CO T VISIT [facility] 10 CENTER CENTER MINUTES OFFICE 91789 [place] P[place] OUTPATIEN 6 6 N CO N CO T NEW 20 [facility] MINUTES CENTER CENTER EMERGENCY 87263 COMPASS BRACKEN 5 5 EMERGENCY TANGELA DEPARTMEN T VISIT PHYSICIAN MODERATE S SEVERITY EMERGENCY [address] ST 5 5 [facility] DEPARTMEN MED CTR T VISIT FRAME AND SCRAP CRUSHER LOW/MODER SEVERITY HOSPITAL ST - 5 5 [facility] OUTPATIEN MED CTR T FRAME AND SCRAP CRUSHER OFFICE 44077 [facility] T VISIT [facility] DE[facility] DEPT 15 WALLY WALLY MINUTES OFFICE 57697 [place] [facility] OUTPATIEN 4 4 MEDICAL MAR T NEW 30 SERV MINUTES FOUNDATIO OFFICE 49504 [facility] OUTPATIEN 4 4 [facility] T VISIT [facility] DEPT [facility] DEPT 25 WALLY WALLY MINUTES PERIODIC 91706 [facility] PREVENTIV 4 4 [facility] DISTRICT E MED EST HLTH DEPT HLTH DEPT PATIENT [facility] WALLY 18-39 YRS OFFICE 39938 [facility] OUTPATI[facility] 4 4 [facility] T VISIT HLTH DEPT HLTH DEPT 15 WALLY WALLY MINUTES OFFICE [address]06 [facility] OUTPATIEN 3 3 [facility] ANTONELLA T VISIT 15 PHYSICIAN MINUTES S OFFICE 36914 [facility] 3 3 [facility] T VISIT HLTH DEPT HLTH DEPT 10 [facility] WALLY MINUTES OFFICE 33514 [facility] 3 3 [facility] T VISIT HLTH DEPT HLTH DEPT 10 [facility] WALLY MINUTES PERIODIC 42228 [facility] PREVENTIV 3 3 [facility] E MED EST HLTH DEPT HLTH DEPT PATIENT [facility] 18-39 YRS OFFICE 13422 [facility] OUT[facility] 2 2 [facility] T VISIT HLTH DEPT HLTH DEPT 10 [facility] WALLY MINUTES OFFICE 96687 [facility] 2 2 [facility] T VISIT HLTH DEPT HLTH DEPT 10 [facility] WALLY MINUTES OFFICE 00124 JENNI JENNI OUTPATIEN 2 2 [facility] [address]ES [address] [facility] OUT[facility] 2 2 [facility] ANTONELLA T VISIT 25 PHYSICIAN MINUTES S OFFICE 49458 [facility] 2 [facility] T VISIT HLTH DEPT HLTH DEPT 15 WALLY WALLY MINUTES OFFICE 68594 [facility] OUT[facility] 2 2 [facility] ANTONELLA T VISIT 15 PHYSICIAN MINUTES S OFFICE 38262 JENNI JENNI OUTPATIEN 2 2 [facility] C[facility] 25 MINUTES OFFICE 19485 JENNI JENNI OUTPATIEN 2 2 CO [facility] T VISIT CENTER CENTER 25 MINUTES PERIODIC 62291 JENNI ARTEAGA PREVENTIV 2 2 CO HEALTH [employer] HEALTH E MED EST CENTER CENTER PATIENT 12-17YRS EMERGENCY [address] [facility] 1 1 [facility] DEPARTMEN MED CTR T VISIT LOW/MODER SEVERITY OFFICE 76147 JENNI ARTEAGA OUTPATIEN 1 1 CO [facility] T VISIT CENTER CENTER 15 MINUTES OFFICE 79461 JENNI ARTEAGA OUTPATIEN 1 1 [employer] HE[facility] CO HEALTH T VISIT CENTER CENTER 10 MINUTES OFFICE 79723 JENNI ARTEAGA OUTPATIEN 1 1 [employer] [facility] CO HE[facility] T VISIT CENTER CENTER [address] [facility] OUTPATIEN 1 1 [facility] ANTONELLA T VISIT 15 PHYSICIAN MINUTES S OFFICE 22835 JENNI ARTEAGA OUTPATIEN 1 1 [employer] [facility] CO HE[facility] T VISIT CENTER CENTER [address] [facility] 1 1 [facility] ANTONELLA T VISIT 15 PHYSICIAN MINUTES S OFFICE [address] [facility] OUTPATIEN 1 1 [facility] ANTONELLA T VISIT 15 PHYSICIAN MINUTES S INITIAL 60514 JENNI ARTEAGA PREVENTIV 0 0 [employer] HEALTH CO HEALTH E CENTER CENTER MEDICINE NEW PT AGE 12-17 YR OFFICE 94431 [place] OUTPATIEN 0 0 N CO N CO T VISIT [facility]ALTH [facility] 15 CENTER CENTER MINUTES OFFICE 30248 [place] P[place] OUTPATIEN 0 0 N CO N CO T VISIT HEALTH [facility] 10 CENTER CENTER MINUTES OFFICE 97947 [place] OUTPATIEN 0 0 N CO N CO T VISIT [facility]ALTH [facility] 15 CENTER CENTER MINUTES OFFICE 40285 [facility] [place] OUTPATIEN 9 9 HEALTH N CO T VISIT [facility] 10 BANK ACCT CENTER MINUTES OFFICE 75510 DHS/CO [place] OUTPATIEN 9 9 HEALTH N CO T NEW [facility] MINUTES [facility] ACCT CENTER OFFICE 73493 PATIENT KISHAN OUTKRISTINEEN 9 9 FIRST ANA T VISIT PHYS 15 MINUTES OFFICE 28789 PATIENT TORY OUTPATIEN 9 9 FIRST LORIN T VISIT PHYS 15 MINUTES OFFICE 40182 PATIENT KISHAN OUTULISES 8 8 FIRST ANA T VISIT PHYS 15 MINUTES OFFICE 35088 PATIENT ALLYN OUTPATIEN 8 8 FIRST ROBERT C T VISIT PHYS 25 MINUTES [facility] - 8 8 [facility] T EMERGENCY 22012 EMERGENCY [facility] 8 8 [facility] PHYS T VISIT [facility] [place] SEVERITY OFFICE 24510 PATIENT RAMILA HOLLEY 8 8 FIRST ANA T VISIT PHYS 25 MINUTES OFFICE 69984 PATIENT KISHAN OUTULISES 8 8 FIRST ANA T VISIT PHYS [address] [place], DEPT 8 8 [facility] VANEGAS VISIT MED CTR HIGH SEVERITY& THREAT FUNCJ OFFICE 17851 PATIENT RAMILA LEI 8 8 FIRST MONICA Johnson T VISIT PHYS 15 MINUTES OFFICE 80281 JAM POLK OUTULISES 8 8 GABRIEL RIOS T VISIT 10 MINUTES
--- OUTSIDE RECORDS SUMMARY | 2016-11-10 22:44 | External Medical Summary Rpt ---
Author Author , Organization [employer] Address Unknown Phone Unavailable Care Team Providers Care Manufacturing Engineering Manager Name Role Phone ALINA HONEYCUTT, ALINA Unavailable Unavailable TANGELA BRANDSER, KIM A, Unavailable Unavailable BRANDSER, KIM A JUNG, DEL A, Unavailable Unavailable JUNG, DEL A [facility] Unavailable Unavailable CARE, [facility] SHAI JAM, SHAI JAM Unavailable Unavailable SHAI JAM, SHAI JAM Unavailable Unavailable BRUNA, GUILHERME, Unavailable Unavailable BRUNA, GUILHERME [facility] Unavailable Unavailable [facility] Unavailable Unavailable [facility], [facility] SOLOMON MAR, SOLOMON Unavailable Unavailable MAR KALFAS, ROBERT C, Unavailable Unavailable KALFAS, ROBERT C [facility] Un[facility], [facility] Unavailable Unavailable LAB, PATHOLOGY & CYTOLOGY LAB [facility] Unavailable Unavailable CENTER, [facility] Unavailable Unavailable CENTER, [facility], Unavailable Unavailable [facility] E[facility], Unavailable Unavailable EDWARD MONTGOMERY JR, Unavailable Unavailable EDWARD MONTANA TRO, ROCK TRO Unavailable Unavailable KISHAN LUDWIG Unavailable Unavailable ANA MCCLELLAN, Unavailable Unavailable ANA HOLLEY MICHAEL G, Unavailable Unavailable MONICA LEI [facility], Unavailable Unavailable [facility] Unavailable Unavailable MANAGEMENT DEPARTMENT CHAIR ST, [facility] MANAGEMENT DEPARTMENT CHAIR [facility] Unavailable Unavailable [facility]YSICIANS, [facility] Unavailable Unavailable [facility], [facility] GABRIEL POLK, Unavailable Unavailable GABRIEL POLK SHELBY, Unavailable Unavailable LORIN SPEARS [facility] Unavailable Unavailable #[facility], [facility] Unavailable [facility]available DEPT [facility], [facility] DEPT [facility] Unavailable [facility]available DEPT [facility], [facility] DEPT [facility] Purpose Continuity of Care Document - 08-07-2007 through 2016 Problems Code Diagnosis DOS Provider Status [id number] ACUTE 05-04-2016 [facility] UNSPECIFIED CARE J029 ACUTE 05-04-2016 [facility] PHARYNGIT[facility] UNSPECIFIED R110 NAUSEA 05-04-2016 [facility] R599 ENLARGED 05-04-2016 [facility] LYMPH [facility]ES [facility] UNSPECIFIED [id number] ENCOUNTER 03-08-2016 [facility] INITIAL [facility] PRES[facility]IO [facility] N CONTRACEPTI VE UNS E41894 ENCOUNTER 03-02-2016 [facility] PRESCRIPTIO [facility] N EMERGENCY CENTER CONTRACEPTI ON Z3189 ENCOUNTER 03-02-2016 [facility] FOR OTHER [facility] PROCREATIVE CENTER MANAGEMENT R509 FEVER 09-16-2015 [facility] UNSPECIFIED [facility] N939 ABNORMAL 06-18-2015 [facility] MANAGEMENT DEPARTMENT CHAIR BLEEDING ST UNSPECIFIED R102 PELVIC AND 06-18-2015 ST PER[facility]AL [facility] PAIN [facility] CTR MANAGEMENT DEPARTMENT CHAIR ST 6143 ACUTE 12-25-2013 [facility] PARAMETRITI DISTRICT S AND [facility] DEPT PELVIC WALLY CELLULITIS V2549 SURVEILLANC 12-25-2013 [facility] E OTH PREV DISTRICT PRSC [facility] DEPT CONTRACEPT WALLY METHOD 6250 DYSPAREUNIA 10-15-2013 [facility] 6149 UNSPEC 09-11-2013 [facility] INFLAM DISTRICT DISEASE FE [facility] DEPT PELVIC WALLY ORGANS&TISS UES V2689 OTHER 09-11-2013 [facility] SPECIFIED DISTRICT PROCREATIVE [facility] DEPT MANAGEMENT WALLY 7336 TIETZES 02-12-2013 DISE[facility] 2662 OTHER 01-11-2012 [facility] B-COMPLEX HEALTH DEFICIENCIE CENTER S 2512 HYPOGLYCEMI 12-29-2011 BARBAR[facility] HoffmanTH UNSPECIFIED PHYSICIANS 7962 ELEVATED BP 12-29-2011 [facility] WITHOUT DX PHYSICIANS HYPERTENSIO N V2541 SURVEILLANC 10-22-2011 [facility] E PREV DISTRICT PRESCRIBED [facility] DEPT CONTRACEPT WALLY PILL 463 ACUTE 09-27-2011 TONSILLITIS [facility] PH[facility]ICIANS 76849 UNSPECIFIED 08-17-2011 [facility] VAGINITIS [facility] VULVOVAGINI TIS 3671 MYOPIA 08-12-2011 SHAI JAM 88834 NONGONOCOCC 07-27-2011 [facility] URETHRITIS CENTER DUE CHLAMYDTRAC HOMATIS V7231 ROUTINE 07-27-2011 PATHOLOGY & GYNECOLOGIC CYTOLOGY AL LAB EXAMINATION 9140 HAND NO 06-04-2011 [facility] ALONE MED CTR ABRAS/FRIC BURN W/O INF V2509 OTH GENERAL 02-19-2011 [facility] HEALTH CNSL&ADVICE CENTER CONTRACEPT MANAGEMENT 02927 MIGRAINE 10-26-2010 ST UNSP W/O [facility] INTRACT W/O PHYSICIANS STATUS MIGRAINOSUS 4619 ACUTE 09-04-2010 ST SINUSITIS, [facility] UNSPECIFIED PHYSICIANS 5589 OTH&UNSPEC 08-04-2010 NONINFECTIO [facility] US PHYSICIANS GASTROENTER ITIS&COLITI S V1582 PERS HX 06-30-2010 [facility] TOBACCO USE HEALTH PRESENTING CENTER HAZARDS HEALTH V7643 SCREENING 06-30-2010 [facility] MALIGNANT CENTER NEOPLASM OF THE SKIN V2502 GENERAL 10-21-2009 [facility] CNSL CO HEALTH INITIATION CENTER OTH CONTRACEPT MEASURES V2501 GENERAL 02-25-2009 [facility] COUNSELING HEALTH PRESCRIPTIO CENTRAL N ORAL BANK ACCT CONTRACEPTS 3829 UNSPECIFIED 10-01-2008 PATIENT OTITIS FIRST PHYS MEDIA 30213 UNSPECIFIED 09-17-2008 PATIENT INFECTIVE FIRST PHYS OTITIS EXTERNA 075 INFECTIOUS 06-27-2008 PATIENT MONONUCLEOS FIRST PHYS IS 7840 HEADACHE 03-06-2008 PATIENT FIRST PHYS 54471 OTHER 03-05-2008 ST SPECIFIED [facility] CARDIAC [facility] CTR DYSRHYTHMIA S 7802 SYNCOPE AND 03-05-2008 ST COLLAPSE [facility] 69836 NONSPECIFIC 03-05-2008 ST ABNORMAL [facility] ELECTROCARD MED [...] 28 CE 1 19 CV TA S WI PH NO AR PH MA EN CY [...] Procedure DOS Code Location Performer Comment IAADIADOO [address] [facility] CARE CARE GROUP A IADNA 20380 [facility] NEISSERIA 6 N CO N [facility] CENTER AE AMPLIFIED PROBE TQ AMINES 78965 [facility] VAGINAL 6 N CO N [facility] CENTER VE IADNA 66597 [facility] CHLAMYDIA 6 N CO N [facility] TRACHOM[facility] CENTER IS AMPLIFIED PROBE TQ WET Q0111 [facility] REUBEN 6 N CO N CO INCL PREP [facility] [place] [facility] CERV/SKIN SPECIMENS CONTRACEP S4993 [facility] TIVE 6 N CO N [facility] [place] [facility] CONTROL CONTRACEP S4993 [facility] [facility] TIVE 6 N CO N [facility] [place] [facility] CONTROL URINE 88887 [facility] [facility] 6 N CO N CO TEST [facility] VISUAL [facility] COLOR CMPRSN METHS IADNA [address] CHLAMYDIA 5 [facility] CTR MED CTR TRACHOMAT MANAGEMENT DEPARTMENT CHAIR ST MANAGEMENT DEPARTMENT CHAIR ST IS AMPLIFIED PROBE TQ IAADIADOO [address] [facility] MED CTR MED CTR MANAGEMENT DEPARTMENT CHAIR ST MANAGEMENT DEPARTMENT CHAIR ST VAGINALIS GONADOTRO [address] PIN 5 [facility] CHORIONIC MED CTR MED CTR MANAGEMENT DEPARTMENT CHAIR ST MANAGEMENT DEPARTMENT CHAIR ST QUALITATI VE IADNA [address] NEISSERIA 5 [facility] CTR MED CTR GONORRHOE MANAGEMENT DEPARTMENT CHAIR ST MANAGEMENT DEPARTMENT CHAIR ST AE AMPLIFIED PROBE TQ COLLECTIO [address] N VENOUS 5 [facility] BLOOD [facility] CTR MED CTR VENIPUNCT MANAGEMENT DEPARTMENT CHAIR ST MANAGEMENT DEPARTMENT CHAIR ST URE INJECTION J1050 [facility] MEDROXYPR [facility] DEPT [facility]GE[facility]ON [facility] WALLY E ACETATE 1 MG INJECTION J1050 [facility] 4 [facility] DISTRICT MEDROXYPR [facility] WALLY E ACETATE 1 MG IADNA 79895 [facility] CHLAM[facility]DIA [facility] DEPT TRACHOMAT WALLY WALLY IS AMPLIFIED PROBE TQ IADNA 05526 [facility] NEISSERIA [facility] DEPT GONORRHOE WALLY WALLY AE AMPLIFIED PROBE TQ INJECTION J1050 [facility] MED[facility]XYPR [facility] DEPT [place] [facility] WALLY E ACETATE 1 MG INJECTION J1050 [facility] MEDROXYPR HLTH DEPT [facility] DEPT [facility] [facility] WALLY E ACETATE 1 MG INJECTION J1050 [facility] 3 [facility] DISTRICT MEDROXYPR HL DEPT [facility] DEPT [place]GE[place] WALLY WALLY E ACETATE 1 MG IADNA 47055 [facility] CHLAMYDIA 3 DISTRICT DISTRICT [facility] DEPT [facility] DEPT TRACHOMAT WALLY WALLY IS AMPLIFIED PROBE TQ IADNA 71814 [facility] NEISSERIA 3 [facility] DISTRICT [facility] DEPT [facility] DEPT GONORRHOE WALLY WALLY AE AMPLIFIED PROBE TQ INJ J1055 JENNI ARTEAGA MDRXYPRGE 2 [facility] HEALTH STRON CENTER CENTER ACTAT CNTRACPT USE 150 MG URINE 60421 JENNI ARTEAGA 2 [facility] CENTER VISUAL COLOR CMPRSN METHS CONTRACEP S4993 [facility] TIVE 2 DISTRICT DISTRICT PILLS FOR HLTH DEPT [facility] DEPT [facility] WALLY CONTROL URNLS DIP 23458 JENNI ARTEAGA 2 [facility] HEALTH STICK/TAB CENTER CENTER LET RGNT NON-AUTO W/O MICRSCP LENS V2784 SHAI GARCIA POLYCARBO 2 BISI OR EQUAL ANY INDEX PER LENS FRAMES V2020 SHAI GARCIA PURCHASES 2 DETERMINA 76678 SHAI GARCIA TION 2 REFRACTIV E STATE OPHTH 49208 SHAI GARCIA MEDICAL 2 XM&EVAL COMPRE NEW PT 1/> VST SPHERE V2100 SHAI GARCIA SINGLE 2 VISION PLANO +/- 4.00 PER LENS FITTING 08705 SHAI GARCIA SPECTACLE 2 S XCPT APHAKIA MONOFOCAL PH BODY 93079 JENNI ARTEAGA FLUID NOT 2 [facility] HEALTH CENTER CENTER ELSEWHERE SPECIFIED ALL Q0112 JENNI ARTEAGA POTASSIUM 2 [facility] CENTER HYDROXIDE PREPARATI ONS SMR PRIM 77488 JENNI ARTEAGA SRC WET 2 [facility] NFCT AGT CYTP 38959 PATHOLOGY PICKLESIM CERV/VAG 2 & ER JR FREDA AUTO THIN CYTOLOGY LAYER LAB PREP MNL SCREEN AMINES 37287 JENNI ARTEAGA VAGINAL 2 [facility] HEALTH FLUID CENTER CENTER QUALITATI VE IADNA 98430 JENNI ARTEAGA CHLAMYDIA 2 [facility] HEALTH CENTER CENTER TRACHOMAT IS AMPLIFIED PROBE TQ WET Q0111 JENNI ARTEAGA REUBEN 2 [facility] HEALTH INCL PREP CENTER CENTER VAGINAL CERV/SKIN SPECIMENS URNLS DIP 62494 JENNI ARTEAGA 2 [facility] HEALTH STICK/TAB CENTER CENTER LET RGNT NON-AUTO W/O MICRSCP IADNA 73281 JENNI ARTEAGA NEISSERIA 2 [facility] HEALTH CENTER CENTER GONORRHOE AE AMPLIFIED PROBE TQ INJ J1055 JENNI ARTEAGA MDRXYPRGE 2 [facility] HEALTH STRON C[facility] [place] ACTAT CNTRACPT USE 150 MG INJ J1055 JENNI ARTEAGA MDRXYPRGE 1 [facility]ALTH STRON C[facility] [place] ACTAT CNTRACPT USE 150 MG INJ J1055 JENNI ARTEAGA MDRXYPRGE 1 [facility] HEALTH STRON [facility] [place] ACTAT CNTRACPT USE 150 MG INJ J1055 JENNI ARTEAGA MDRXYPRGE 1 [facility] HEALTH STRON CENTER CENTER ACTAT CNTRACPT USE 150 MG INJ J1055 JENNI ARTEAGA MDRXYPRGE 1 [facility] HEALTH STRON CENTER CENTER ACTAT CNTRACPT USE 150 MG INJ J1055 JENNI ARTEAGA MDRXYPRGE 0 [facility] HEALTH STRON CENTER CENTER ACTAT CNTRACPT USE 150 MG INJ J1055 [facility] [facility] MDRXYPRGE 0 N CO N [facility] CENTER CNTRACPT USE 150 MG IADNA 49077 [facility] [facility] NEISSERIA 0 N CO N [facility] CENTER AE AMPLIFIED PROBE TQ IADNA 22287 [facility] [facility] CHLAMYDIA 0 N CO N [facility] CENTER IS AMPLIFIED PROBE TQ INJ J1055 [facility] [facility] MDRXYPRGE 0 N CO N CO [facility] ACTAT CENTER CENTER CNTRACPT USE 150 MG INJ J1055 [facility] [facility] MDRXYPRGE 0 N CO N CO [facility] ACTAT [facility] CNTRACPT USE 150 MG BLOOD 63045 [facility] [facility] COUNT 0 N CO N CO HEMOGLOBI [facility] N CENTER CENTER CONTRACEP S4993 [facility] TIVE 9 HEALTH N CO [facility] BANK ACCT CENTER CONTROL CONTRACEP S4993 [facility]/CO [place] TIVE 9 HEALTH N CO [facility] B[facility] ACCT CENTER CONTROL COMPREHEN 84167 PATIENT ISATU GRUBER 8 FIRST ROBERT C METABOLIC PHYS PANEL URNLS DIP [address] STICK/TAB [facility] LET RGNT AUTO W/O MICROSCOP Y IAADIADOO [address] STREPTOCO [facility] CCUS GROUP A BLOOD 30333 [facility] COUNT [address] [place] [address] COMPLETE [facility] AUTO&AUTO DIFRNTL WBC CUL 91992 [facility] PRSMPTV [address] [place] [address] PTHGNC [facility] ORGANISM SCRN W/COLONY ESTIMJ BASIC 79516 [facility] METABOLIC [address] [place] [address] PANEL [facility] CALCIUM TOTAL HETEROPHI 05380 [facility] LE [address] [place] [address] ANTIBODIE [facility] [place] [address] RADIOLOGY BRANDSER, HEAD/BRAI 8 KIM A N W/O ASSOCIATE CONTRAST S PSC MATERIAL ECG 23837 [facility], ROUTINE 8 [facility] DEL A ECG MED CTR W/LEAST 12 LDS I&R ONLY Encounters Encounter Start End Date Code Location Performer Type Date OFFICE 62798 [facility] OUTPATIEN 6 6 SPRING T NEW 45 URGENT MINUTES CARE PERIODIC 23083 [place] P[facility] PREVENTIV 6 6 N CO N CO E MED EST [facility] PATIENT CENTER CENTER 18-39 YRS OFFICE 63199 [facility] [facility] OUTPATIEN 6 6 N CO N CO T VISIT [facility] 10 CENTER CENTER MINUTES OFFICE 48170 [facility] [facility] OUTPATIEN 6 6 N CO N CO T NEW 20 [facility] MINUTES CENTER CENTER EMERGENCY 02019 [facility] BRACKEN 5 5 EMERGENCY TANGELA DEPARTMEN T VISIT PHYSICIAN MODERATE S SEVERITY EMERGENCY 59809 ST 5 5 [facility] DEPARTMEN MED CTR T VISIT MANAGEMENT DEPARTMENT CHAIR ST LOW/MODER SEVERITY [facility]PITAL ST - 5 5 [facility] MED CTR T MANAGEMENT DEPARTMENT CHAIR ST OFFICE 24197 [facility] T VISIT HLTH DEPT HLTH DEPT 15 WALLY WALLY MINUTES OFFICE 73873 [place] [facility] OUT[facility] 4 4 MEDICAL MAR T NEW 30 SERV MINUTES FOUNDATIO OFFICE 51558 [facility] OUT[facility] 4 4 [facility] T VISIT HLTH DEPT HLTH DEPT 25 WALLY WALLY MINUTES OFFICE 24141 [facility] OUT[facility] 4 4 [facility] T VISIT HLTH DEPT HLTH DEPT 15 WALLY WALLY MINUTES PERIODIC 48550 [facility] PREVENTIV 4 4 [facility] E MED EST HLTH DEPT HLTH DEPT PATIENT WALLY WALLY 18-[address] [facility] OUTPATIEN 3 3 [facility] ANTONELLA T VISIT 15 PHYSICIAN MINUTES S OFFICE 60806 [facility] 3 3 [facility] T VISIT HLTH DEPT HLTH DEPT 10 WALLY WALLY MINUTES OFFICE 20051 [facility] OUT[facility] 3 3 [facility] T VISIT HLTH DEPT HLTH DEPT 10 WALLY WALLY MINUTES PERIODIC 63591 [facility] PREVENTIV 3 3 [facility] E MED EST HLTH DEPT HLTH DEPT PATIENT WALLY WALLY 18-39 YRS OFFICE 79920 [facility] OUT[facility] 2 2 [facility] DISTRICT T VISIT TH DEPT TH DEPT 10 [facility] MINUTES OFFICE 80118 [facility] OUTPATIEN 2 2 [facility] DISTRICT T VISIT TH DEPT [facility] DEPT 10 [facility] MINUTES OFFICE 52065 JENNI ARTEAGA OUTPATIEN 2 2 [facility] CENTER CENTER [address] [facility] OUTPATIEN 2 2 [facility] ANTONELLA T VISIT 25 PHYSICIAN MINUTES S OFFICE 83377 [facility] 2 2 [facility] T VISIT TH DEPT [facility] DEPT 15 WALLY WALLY MINUTES OFFICE 79080 [facility] OUTPATIEN 2 2 [facility] ANTONELLA T VISIT 15 PHYSICIAN MINUTES S OFFICE 27539 JENNI ARTEAGA OUTPATIEN 2 2 IA ezeep [facility] V[facility]IT CENTER CENTER 25 MINUTES PERIODIC 59503 JENNI ARTEAGA PREVENTIV 2 2 IA ezeep [facility] E MED EST CENTER CENTER PATIENT 12-17YRS OFFICE 28147 JENNI ARTEAGA OUTPATIEN 2 2 IA ezeep [facility] T VISIT CENTER CENTER [address] [place] TR[facility] 1 1 [facility] DEPARTMEN MED CTR T VISIT LOW/MODER SEVERITY OFFICE 07350 JENNI ARTEAGA OUTPATIEN 1 1 IA [facility] CENTER CENTER 15 MINUTES OFFICE 47648 JENNI ARTEAGA OUTPATIEN 1 1 IA [facility] CENTER CENTER 10 MINUTES OFFICE 44718 JENNI ARTEAGA OUTPATIEN 1 1 IA [facility] CENTER [address] [facility] OUTPATIEN 1 1 [facility] ANTONELLA T VISIT 15 PHYSICIAN MINUTES S OFFICE 51205 JENNI ARTEAGA OUTPATIEN 1 1 [facility] T VISIT CENTER CENTER [address]ES [address] [facility] OUTPATIEN 1 1 [facility] ANTONELLA T VISIT 15 PHYSICIAN MINUTES S OFFICE 07401 [facility] OUTPATIEN 1 1 [facility] ANTONELLA T VISIT 15 PHYSICIAN MINUTES S INITIAL 73687 JENNI ARTEAGA PREVENTIV 0 0 CO [facility]ALTH [facility] E CENTER CENTER MEDICINE NEW PT AGE 12-17 YR OFFICE 29811 [place] P[facility] OUTPATIEN 0 0 N CO N CO T VISIT [facility] [place] [facility] MINUTES OFFICE 48712 [place] P[facility] OUTPATIEN 0 0 N CO N CO T VISIT [facility] [place] C[facility] MINUTES OFFICE 37243 [place] P[facility] OUTPATIEN 0 0 N CO N CO T VISIT [facility] 15 CENTER CENTER MINUTES OFFICE 43371 [facility] [place] OUTPATIEN 9 9 HEALTH N CO T VISIT [facility] 10 [facility] ACCT CENTER MINUTES OFFICE 00613 DHS/[facility] [place] OUTPATIEN 9 9 HEALTH N CO T NEW 30 [facility] MINUTES [facility] ACCT CENTER OFFICE 44580 PATIENT SCHAJORDON, OUTPATIEN 9 9 FIRST ANA T VISIT PHYS 15 MINUTES OFFICE 11912 PATIENT SPEARS, OUTPATIEN 9 9 FIRST LORIN T VISIT PHYS 15 MINUTES OFFICE 53862 PATIENT SCHAJORDON, OUTPATIEN 8 8 FIRST ANA T VISIT PHYS 15 MINUTES OFFICE 03043 PATIENT KALFAS, OUTPATIEN 8 8 FIRST ROBERT C T VISIT PHYS 25 MINUTES [facility] [place] [address] 8 [facility] 62810 [facility] PH[facility] T VIS[facility] MODERATE [place] SEVERITY OFFICE 20368 PATIENT RAMILA HOLLEY 8 8 FIRST ANA T VISIT PHYS 25 MINUTES OFFICE 56324 PATIENT RAMILA HOLLEY 8 8 FIRST ANA T VISIT PHYS 25 MINUTES EMERGENCY 97900 [facility], DEPT 8 8 [facility] ABREUONY VISIT MED [facility] HIGH SEVERITY& THREAT FUN OFFICE 77864 PATIENT RAMILA LEI 8 8 FIRST MONICA Johnson T VISIT PHYS 15 MINUTES OFFICE 41885 JAM POLK OUTPATIEN 8 8 GABRIEL RIOS T VISIT 10 MINUTES
--- OUTSIDE RECORDS SUMMARY | 2016-11-10 22:44 | External Medical Summary Rpt ---
Author Author PRABHAKAR Ambrose, [employer] Organization [employer] Address Unknown [...] MAY HAVE ADVERSE PSYCHO- SOCIAL IMPACT, [facility] MMENDS RETESTI NG.\.br \This report contain s [...] using the Aptima Combo 2 assay from [employer] be.\.br \A negativ e result does [...] of this test were validat ed by [facility] are laborat ory. This assay [...] develop ed and validat ed by the [facility] are laborat ory. Detaile d [...] MAY HAVE ADVERSE PSYCHO- SOCIAL IMPACT, THE [facility] MMENDS RETESTI NG.\.br \This report contain s [...]
--- OUTSIDE RECORDS SUMMARY | 2016-11-10 22:44 | External Medical Summary Rpt ---
Author Author , Organization [employer] Address Unknown Phone Unavailable Care Team Providers Care Digital Data Analyst Name Role Phone ALINA HONEYCUTT, ALINA Unavailable Unavailable TANGELA BRANDSER, KIM A, Unavailable Unavailable BRANDSER, KIM A JUNG, DEL A, Unavailable Unavailable JUNG, DEL A [facility] Unavailable Unavailable CARE, [facility] SHAI JAM, SHAI JAM Unavailable Unavailable SHAI JAM, SHAI JAM Unavailable Unavailable BRUNA, GUILHERME, Unavailable Unavailable BRUNA, GUILHERME [facility] Unavailable Unavailable [facility], [facility] Unavailable Unavailable SCH[facility], [facility] SOLOMON MAR, SOLOMON Unavailable Unavailable MAR KALFAS, ROBERT C, Unavailable Unavailable KALFAS, ROBERT C [facility] Un[facility], [facility] Unavailable Unavailable LAB, PATHOLOGY & CYTOLOGY LAB [facility] Unavailable Unavailable CENTER, [facility] Unavailable Unavailable CENTER, [facility], Unavailable Unavailable [facility] ELE BARBA, Unavailable Unavailable EDWARD MONTGOMERY JR, Unavailable Unavailable EDWARD MONTANA TRO, ROCK TRO Unavailable Unavailable KISHAN LUDWIG Unavailable Unavailable ANA MCCLELLAN, Unavailable Unavailable ANA HOLLEY MICHAEL G, Unavailable Unavailable [facility], Unavailable Unavailable [facility] Unavailable [facility]available EQUIPMENT MAINT TECH ST, [facility] EQUIPMENT MAINT TECH [facility] Unavailable Unavailable PHYSICIANS, [facility] Unavailable Unavailable [facility], [facility] GABRIEL POLK, Unavailable Unavailable GABRIEL POLK SHELBY, Unavailable Unavailable LORIN SPEARS [facility] Unavailable Unavailable #5, [facility] Unavailable [facility]available DEPT [facility], [facility] DEPT [facility] Unavailable Unavailable DEPT [facility], [facility] DEPT [facility] Purpose Continuity of Care Document - 08-07-2007 through 2016 Problems Code Diagnosis DOS Provider Status J0190 ACUTE 05-04-2016 [facility] UNSPECIFIED CARE J029 ACUTE 05-04-2016 [facility] PHARYNGITIS [facility]ARE UNSPECIFIED R110 NAUSEA 05-04-2016 [facility] R599 ENLARGED 05-04-2016 [facility] [place] LYMPH NODES [facility]RGENT CARE UNSPECIFIED [id number] ENCOUNTER 03-08-2016 [place] [facility]IAL [facility] CONTRACEPTI VE UNS V81726 ENCOUNTER 03-02-2016 [place] PRESCRIPTIO [facility] CONTRACEPTI ON Z3189 ENCOUNTER 03-02-2016 [place] FOR OTHER [facility] MANAGEMENT R509 FEVER 09-16-2015 [place] UNSPECIFIED [facility] N939 ABNORMAL 06-18-2015 [facility] EQUIPMENT MAINT TECH BLEEDING ST UNSPECIFIED R102 PELVIC AND 06-18-2015 ST PERINEAL [facility] PAIN MED CTR EQUIPMENT MAINT TECH ST 6143 ACUTE 12-25-2013 [facility] PARAMETRITI DISTRICT S AND [facility] DEPT PELVIC WALLY CELLULITIS V2549 SURVEILLANC 12-25-2013 [facility] E OTH PREV DISTRICT PRSC [facility] DEPT CONTRACEPT WALLY METHOD 6250 DYSPAREUNIA 10-15-2013 [facility] 6149 UNSPEC 09-11-2013 [facility] INFLAM DISTRICT DISEASE FE [facility] DEPT PELVIC WALLY ORGANS&TISS UES V2689 OTHER 09-11-2013 [facility] SPECIFIED DISTRICT PROCREATIVE [facility] DEPT MANAGEMENT WALLY 7336 TIETZES 02-12-2013 DISEASE [facility]ICIANS 2662 OTHER 01-11-2012 [facility] B-COMPLEX HEALTH DEFICIENCIE CENTER S 2512 HYPOGLYCEMI 12-29-2011 [facility] HoffmanTH UNSPECIFIED PHYSICIANS 7962 ELEVATED BP 12-29-2011 [facility] WITHOUT DX PHYSICIANS HYPERTENSIO N V2541 SURVEILLANC 10-22-2011 [facility] E PREV DISTRICT PRESCRIBED [facility] DEPT CONTRACEPT WALLY PILL 463 ACUTE 09-27-2011 TONSILLITIS [facility] PHYSICIANS 91727 UNSPECIFIED 08-17-2011 [facility] VAGINITIS [facility] VULVOVAGINI TIS 3671 MYOPIA 08-12-2011 SHAI JAM 00041 NONGONOCOCC 07-27-2011 [facility] URETHRITIS CENTER DUE CHLAMYDTRAC HOMATIS V7231 ROUTINE 07-27-2011 PATHOLOGY & GYNECOLOGIC CYTOLOGY AL LAB EXAMINATION 9140 HAND NO 06-04-2011 ST FINGER [facility] ALONE MED CTR ABRAS/FRIC BURN W/O INF V2509 OTH GENERAL 02-19-2011 [facility] HEALTH CNSL&ADVICE CENTER CONTRACEPT MANAGEMENT 59498 MIGRAINE 10-26-2010 ST UNSP W/O [facility] INTRACT W/O PHYSICIANS STATUS MIGRAINOSUS 4619 ACUTE 09-04-2010 ST SINUSITIS, [facility] UNSPECIFIED PHYSICIANS 5589 OTH&UNSPEC 08-04-2010 NONINFECTIO [facility] US PHYSICIANS GASTROENTER ITIS&COLITI S V1582 PERS HX 06-30-2010 [facility] TOBACCO USE HEALTH PRESENTING CENTER HAZARDS HEALTH V7643 SCREENING 06-30-2010 [facility] FOR HEALTH MALIGNANT CENTER NEOPLASM OF THE SKIN V2502 GENERAL 10-21-2009 [place] CNSL CO HEALTH INITIATION CENTER OTH CONTRACEPT MEASURES V2501 GENERAL 02-25-2009 [facility] COUNSELING HEALTH PRESCRIPTIO CENTRAL N ORAL BANK ACCT CONTRACEPTS 3829 UNSPECIFIED 10-01-2008 PATIENT OTITIS FIRST PHYS MEDIA 25987 UNSPECIFIED 09-17-2008 PATIENT INFECTIVE FIRST PHYS OTITIS EXTERNA 075 INFECTIOUS 06-27-2008 PATIENT MONONUCLEOS FIRST PHYS IS 7840 HEADACHE 03-06-2008 PATIENT FIRST PHYS 37627 OTHER 03-05-2008 ST SPECIFIED [facility] CARDIAC MED CTR DYSRHYTHMIA S 7802 SYNCOPE AND 03-05-2008 ST COLLAPSE [facility] 03808 NONSPECIFIC 03-05-2008 ST ABNORMAL [facility] ELECTROCARD MED [...] 28 CE 1 19 CV TA S AZ PH NO AR PH MA EN CY [...] RO 38 -0 -0 .0 AR 48 RAYN ti XE 20 3- 9- 00 MC [...] Procedure DOS Code Location Performer Comment IAADIADOO [id number] [facility] CARE CARE GROUP A IADNA 09287 [place] 6 N CO N [facility] C[facility] AE AMPLIFIED PROBE TQ AMINES 22108 [place] [facility] VAGINAL [address] [facility] QUALITAT[facility] CENTER CENTER VE IADNA 67120 [place] CHLAMYDIA 6 N CO N [facility] CENTER IS AMPLIFIED PROBE TQ WET Q0111 [place] REUBEN 6 N CO N CO INCL PREP [facility] VAGINAL [facility] CENTER CERV/SKIN SPECIMENS CONTRACEP S4993 [place] TIVE 6 N CO N CO PILLS FOR [facility] SCH[facility]ER CENTER CONTROL CONTRACEP S4993 [place] TIVE 6 N CO N CO PILLS FOR [facility] SCHALLER CENTER CONTROL URINE 08900 [place] 6 N CO N CO TEST [facility] VISUAL [facility] COLOR CMPRSN METHS IADNA [address] CHLAMYDIA 5 [facility] CTR MED CTR TRACHOMAT EQUIPMENT MAINT TECH ST EQUIPMENT MAINT TECH ST IS AMPLIFIED PROBE TQ IAADIADOO [address] 5 [facility] TRICHOMON MED CTR MED CTR EQUIPMENT MAINT TECH ST EQUIPMENT MAINT TECH ST VAGINALIS GONADOTRO [address] PIN 5 [facility] CHORIONIC MED CTR MED CTR EQUIPMENT MAINT TECH ST EQUIPMENT MAINT TECH ST QUALITATI VE IADNA [address] NEISSERIA 5 [facility] CTR MED CTR GONORRHOE EQUIPMENT MAINT TECH ST EQUIPMENT MAINT TECH ST AE AMPLIFIED PROBE TQ COLLECTIO [address] N VENOUS 5 [facility] BLOOD [facility] MED CTR VENIPUNCT EQUIPMENT MAINT TECH ST EQUIPMENT MAINT TECH ST URE INJECTION J1050 [facility] DEPT [facility]GE[facility] WALLY E ACETATE 1 MG INJECTION J1050 [facility] WALLY E ACETATE 1 MG IADNA 63359 [facility] CHLAMYDIA 4 [facility] DEPT TRACHOMAT WALLY WALLY IS AMPLIFIED PROBE TQ IADNA 85809 [facility] NEISSERIA 4 [facility] DEPT GONORRHOE WALLY WALLY AE AMPLIFIED PROBE TQ INJECTION J1050 [facility] DEPT [facility]GE[facility]ON [facility] WALLY E ACETATE 1 MG INJECTION J1050 [facility] MED[facility]PR HLTH DEPT [facility] DEPT [facility]GESTERON [facility] WALLY E ACETATE 1 MG INJECTION J1050 [facility] MED[facility] HL DEPT [facility] DEPT OGESTERON WALLY WALLY E ACETATE 1 MG IADNA 67768 [facility] CHLAMYDIA 3 [facility] DEPT [facility] DEPT TRACHOMAT WALLY WALLY IS AMPLIFIED PROBE TQ IADNA 73449 [facility] NEISSERIA 3 [facility] DEPT [facility] DEPT GONORRHOE WALLY WALLY AE AMPLIFIED PROBE TQ INJ J1055 JENNI ARTEAGA MDRXYPRGE 2 [facility] HEALTH STRON CENTER CENTER ACTAT CNTRACPT USE 150 MG URINE 62588 JENNI ARTEAGA 2 [facility] TEST CENTER CENTER VISUAL COLOR CMPRSN METHS CONTRACEP S4993 [facility] TIVE 2 DISTRICT DISTRICT PILLS FOR HLTH DEPT [facility] DEPT [facility] WALLY CONTROL URNLS DIP 41210 JENNI ARTEAGA 2 [facility] HEALTH STICK/TAB CENTER CENTER LET RGNT NON-AUTO W/O MICRSCP LENS V2784 SHAI GARCIA POLYCARBO 2 BISI OR EQUAL ANY INDEX PER LENS FRAMES V2020 SHAI GARCIA PURCHASES 2 DETERMINA 42420 SHAI GARCIA TION 2 REFRACTIV E STATE OPHTH 86098 SHAI GARCIA MEDICAL 2 XM&EVAL COMPRE NEW PT 1/> VST SPHERE V2100 SHAI GARCIA SINGLE 2 VISION PLANO +/- 4.00 PER LENS FITTING 73918 SHAI GARCIA SPECTACLE 2 S XCPT APHAKIA MONOFOCAL PH BODY 81591 JENNI ARTEAGA FLUID NOT 2 [facility] HEALTH CENTER CENTER ELSEWHERE SPECIFIED ALL Q0112 JENNI ARTEAGA POTASSIUM [address] [facility] HYDROXIDE PREPARATI ONS SMR PRIM 88289 JENNI ARTEAGA SRC WET 2 [facility] NFCT AGT CYTP 85787 PATHOLOGY PICKLESIM CERV/VAG 2 & ER JR FREDA AUTO THIN CYTOLOGY LAYER LAB PREP MNL SCREEN AMINES 63023 JENNI ARTEAGA VAGINAL 2 [facility] HEALTH FLUID CENTER CENTER QUALITATI VE IADNA 02997 JENNI ARTEAGA CHLAMYDIA 2 [facility] HEALTH CENTER CENTER TRACHOMAT IS AMPLIFIED PROBE TQ WET Q0111 JENNI ARTEAGA REUBEN 2 [facility] HEALTH INCL PREP CENTER CENTER VAGINAL CERV/SKIN SPECIMENS URNLS DIP 20533 JENNI ARTEAGA 2 [facility] HEALTH STICK/TAB CENTER CENTER LET RGNT NON-AUTO W/O MICRSCP IADNA 64900 JENNI ARTEAGA NEISSERIA 2 [facility] HEALTH CENTER CENTER GONORRHOE AE AMPLIFIED PROBE TQ INJ J1055 JENNI ARTEAGA MDRXYPRGE 2 [facility] HEALTH STRON CENTER SCHALLER ACTAT CNTRACPT USE 150 MG INJ J1055 JENNI ARTEAGA MDRXYPRGE 1 [facility] HEALTH STRON CENTER SCHALLER ACTAT CNTRACPT USE 150 MG INJ J1055 JENNI ARTEAGA MDRXYPRGE 1 [facility] HEALTH STRON CENTER SCHALLER ACTAT CNTRACPT USE 150 MG INJ J1055 JENNI ARTEAGA MDRXYPRGE 1 [facility] HEALTH STRON CENTER CENTER ACTAT CNTRACPT USE 150 MG INJ J1055 JENNI ARTEAGA MDRXYPRGE 1 [facility] STRON CENTER CENTER ACTAT CNTRACPT USE 150 MG INJ J1055 JENNI ARTEAGA MDRXYPRGE 0 [facility] STRON CENTER CENTER ACTAT CNTRACPT USE 150 MG INJ J1055 [place] MDRXYPRGE 0 N [facility] CENTER CNTRACPT USE 150 MG IADNA 27464 [place] NEISSERIA 0 N CO N [facility] CENTER AE AMPLIFIED PROBE TQ IADNA 69413 [place] CHLAMYDIA 0 N CO N [facility] CENTER IS AMPLIFIED PROBE TQ INJ J1055 [place] MDRXYPRGE 0 N CO N CO [facility] ACTAT CENTER CENTER CNTRACPT USE 150 MG INJ J1055 [place] MDRXYPRGE 0 N CO N CO [facility] ACTAT [facility] CNTRACPT USE 150 MG BLOOD 94676 [place] COUNT 0 N CO N CO HEMOGLOBI [facility] N CENTER CENTER CONTRACEP S4993 [facility] [place] TIVE 9 HEALTH N CO PILLS FOR [facility] BANK ACCT CENTER CONTROL CONTRACEP S4993 DHS/CO [place] TIVE 9 HEALTH N CO PILLS FOR [facility] BANK ACCT CENTER CONTROL COMPREHEN 23749 PATIENT ISATU GRUBER 8 FIRST ROBERT C METABOLIC PHYS PANEL URNLS DIP [address] STICK/TAB [facility] LET RGNT AUTO W/O MICROSCOP Y IAADIADOO [address] STREPTOCO [facility] CCUS GROUP A BLOOD 94088 [facility] COUNT [address] [place] [address] COMPLETE [facility] AUTO&AUTO DIFRNTL WBC CUL 46816 [facility] PRSMPTV [address] [place] [address] PTHGNC [facility] ORGANISM SCRN W/COLONY ESTIMJ BASIC 70489 [facility] METABOLIC [address] [place] [address] PANEL [facility] CALCIUM TOTAL HETEROPHI 02596 [facility] LE [address] [place] [address] ANTIBODIE [facility] [place] [address] RADIOLOGY BRANDSER, HEAD/BRAI 8 KIM A N W/O ASSOCIATE CONTRAST S PSC MATERIAL ECG 80914 [facility], ROUTINE 8 [facility] DEL A ECG MED CTR W/LEAST 12 LDS I&R ONLY Encounters Encounter Start End Date Code Location Performer Type Date OFFICE 21829 [facility] OUTPATIEN 6 6 SPRING T NEW 45 URGENT MINUTES CARE PERIODIC 30917 [place] P[place] PREVENTIV 6 6 N CO N CO E MED EST [facility] PATIENT CENTER CENTER 18-39 YRS OFFICE 14666 [place] P[place] OUTPATIEN 6 6 N CO N CO T VISIT [facility] 10 CENTER CENTER MINUTES OFFICE 59933 [place] P[place] OUTPATIEN 6 6 N CO N CO T NEW 20 [facility] MINUTES CENTER CENTER EMERGENCY 92642 [facility] BRACKEN 5 5 EMERGENCY TANGELA DEPARTMEN T VISIT PHYSICIAN MODERATE S SEVERITY EMERGENCY 08950 ST 5 5 [facility] DEPARTMEN MED CTR T VISIT EQUIPMENT MAINT TECH ST LOW/MODER SEVERITY [facility]OSPITAL ST - 5 5 [facility] MED CTR T EQUIPMENT MAINT TECH ST OFFICE 08486 [facility] OUT[facility] 4 4 [facility] T VISIT HLTH DEPT HLTH DEPT 15 WALLY WALLY MINUTES OFFICE 35833 [place] [facility] OUTPATIEN 4 4 MEDICAL MAR T NEW 30 SERV MINUTES FOUNDATIO OFFICE 73634 [facility] OUTPATI[facility] 4 4 [facility] T VISIT HLTH DEPT HLTH DEPT 25 WALLY WALLY MINUTES OFFICE 24802 [facility] OUTPATIEN 4 4 [facility] T VISIT HLTH DEPT HLTH DEPT 15 WALLY WALLY MINUTES PERIODIC 25153 [facility] PREVENTIV 4 4 [facility] DISTRICT E MED EST HLTH DEPT HLTH DEPT PATIENT WALLY WALLY 18-[address] [facility] OUTPATIEN 3 3 [facility] ANTONELLA T VISIT 15 PHYSICIAN MINUTES S OFFICE 84076 [facility] 3 3 [facility] T VISIT HLTH DEPT HLTH DEPT 10 WALLY WALLY MINUTES OFFICE 00634 [facility] OUT[facility] 3 3 [facility] T VISIT HLTH DEPT HLTH DEPT 10 WALLY WALLY MINUTES PERIODIC 90142 [facility] PREVENTIV 3 3 [facility] E MED EST HLTH DEPT HLTH DEPT PATIENT WALLY WALLY 18-39 YRS OFFICE 83965 [facility] OUT[facility] 2 2 [facility] DISTRICT T VISIT TH DEPT TH DEPT 10 [facility] MINUTES OFFICE 20517 [facility] OUT[facility] 2 2 [facility] DISTRICT T VISIT TH DEPT [facility] DEPT 10 [facility] MINUTES OFFICE 15904 JENNI ARTEAGA OUTPATIEN 2 [facility] [address]ES [address] [facility] OUTPATIEN 2 2 [place] ANTONELLA T VISIT 25 PHYSICIAN MINUTES S OFFICE 35787 [facility] 2 2 [facility] T VISIT TH DEPT [facility] DEPT 15 WALLY WALLY MINUTES OFFICE 62772 [facility] OUTPATIEN 2 2 [place] ANTONELLA T VISIT 15 PHYSICIAN MINUTES S OFFICE 33628 JENNI ARTEAGA OUTPATIEN 2 2 [facility] CENTER 25 MINUTES PERIODIC 83481 JENNI ARTEAGA PREVENTIV 2 2 [facility] MED EST CENTER CENTER PATIENT 12-17YRS OFFICE 40428 JENNI ARTEAGA OUTPATIEN 2 2 [facility] CENTER [address] [facility] TRO 1 1 [facility] DEPARTMEN MED CTR T VISIT LOW/MODER SEVERITY OFFICE 71849 JENNI ARTEAGA OUTPATIEN 1 1 [facility] CENTER 15 MINUTES OFFICE 07151 JENNI ARTEAGA OUTPATIEN 1 1 [facility] CENTER 10 MINUTES OFFICE 91833 JENNI ARTEAGA OUTPATIEN 1 1 [facility] [address] [facility] OUTPATIEN 1 1 [facility] ANTONELLA T VISIT 15 PHYSICIAN MINUTES S OFFICE 42903 JENNI ARTEAGA OUTPATIEN 1 1 [facility] V[facility] C[facility] CENTER [address] KISH[facility] OUTPATIEN 1 1 [facility] ANTONELLA T VISIT 15 PHYSICIAN MINUTES S OFFICE 77846 [facility] OUTPATIEN 1 1 [place] ANTONELLA T VISIT 15 PHYSICIAN MINUTES S INITIAL 80953 JENNI ARTEAGA PREVENTIV 0 0 [facility] E CENTER CENTER MEDICINE NEW PT AGE 12-17 YR OFFICE 77335 [place] OUTPATI[facility] 0 0 N CO N CO T VISIT [facility] 15 [facility] CENTER MINUTES OFFICE 69656 [place] P[place] OUTPATIEN 0 0 N CO N CO T VISIT [facility] 10 SCHALLER CENTER MINUTES OFFICE 84016 [place] P[place] OUTPATIEN 0 0 N CO N CO T VISIT [facility] 15 CENTER CENTER MINUTES OFFICE 27491 [facility] [place] OUTPATIEN 9 9 HEALTH N CO T VISIT [facility] 10 [facility] ACCT CENTER MINUTES OFFICE 06632 DHS/CO [place] OUTPATIEN 9 9 HEALTH N CO T NEW 30 [facility] MINUTES [facility] ACCT CENTER OFFICE 07969 PATIENT SCHAJORDON, OUTPATIEN 9 9 FIRST ANA T VISIT PHYS 15 MINUTES OFFICE 97935 PATIENT SPEARS, OUTPATIEN 9 9 FIRST LORIN T VISIT PHYS 15 MINUTES OFFICE 65259 PATIENT SCHAJORDON, OUTPATIEN 8 8 FIRST ANA T VISIT PHYS 15 MINUTES OFFICE 82623 PATIENT KALFAS, OUTPATIEN 8 8 FIRST ROBERT C T VISIT PHYS 25 MINUTES [facility] [place] [address] 8 [facility] T EMERGENCY 02354 EMERGENCY [facility] 8 8 CARE [facility] PHYS T [facility]ISIT [facility] MODERATE [place] SEVERITY OFFICE 55547 PATIENT RAMILA HOLLEY 8 8 FIRST ANA T VISIT PHYS 25 MINUTES OFFICE 42205 PATIENT RAMILA HOLLEY 8 8 FIRST ANA T VISIT PHYS 25 MINUTES EMERGENCY [address] [facility], DEPT 8 8 [place] ABREUONY VISIT MED [facility] HIGH SEVERITY& THREAT FUN OFFICE 10797 PATIENT RAMILA LEI 8 8 FIRST MONICA Johnson T VISIT PHYS 15 MINUTES OFFICE 19708 JAM POLK OUTPATIEN 8 8 GABRIEL RIOS T VISIT 10 MINUTES
--- OUTSIDE RECORDS SUMMARY | 2016-11-10 22:44 | External Medical Summary Rpt ---
[...] MAY HAVE ADVERSE PSYCHO- SOCIAL IMPACT, [facility] MMENDS RETESTI NG.\.br \This report contain s [...] of this test were validat ed by [facility] are laborat ory. This assay is FDA [...] develop ed and validat ed by the [facility] are laborat ory. Detaile d methodo logy [...]
--- OUTSIDE RECORDS SUMMARY | 2016-11-10 22:44 | External Medical Summary Rpt ---
Demographics Preferred Language Iranian Marital Status Unknown Church Affiliation Unknown Race Unknown Ethnic Group Unknown Author Author , Organization [employer] Address Unknown Phone Unavailable Purpose Continuity of Care Document - through 2016 Immunization No patient found.
--- OUTSIDE RECORDS SUMMARY | 2016-11-10 22:44 | External Medical Summary Rpt ---
Demographics Preferred Language Turkish Marital Status Unknown Alevism Affiliation Unknown Race Unknown Ethnic Group Unknown Author Author , Organization [employer] Address Unknown Phone Unavailable Purpose Continuity of Care Document - through 2016 Immunization No patient found.
[2016-11-10 23:04] LABS: URINE BILIRUBIN - DIPSTICK NEGATIVE (NEG); URINE BLOOD TRACE-LYSED (NEG)
[2016-11-10 23:05] LABS: HEMOGLOBIN 15.7 g/dL (12.2-16.2); LYMPH # 1.6 K/mm3 (0.7-4.5); LYMPH % 23.1 % (10-50.0)
--- NOTE | 2016-11-11 00:03 | Emergency Room Report ---
History of Present Illness Time Seen by [id number] Presenting Problem in Triage Pt arrived:Walked Presenting Problem:C/O HEART RACING AND TUNNEL VISION. "FEELS LIKE IM GONNA PASS OUT" EARLIER TODAY HAD DIZZINESS AND VOMITING AT WORK AND HAD TO LEAVE. C/O DIARRHEA. 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 N Clinical Suspician of Infection? N Mental Status: 1 - Regular (Normal Baseline) Sepsis Risk:Low Sepsis Risk Have you (or family members/close friends) recently traveled outside the [place]? N If Yes, where/when: Have you had exposure to infectious disease within the past month? N TB? Other? 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 No Angina: No NH: No Hypertension? No Hyperlipidemia? No CHF? No DVT? No PE? No COPD? No Asthma? No Anemia? No GERD? No Gastric ulcers? No GI Bleed? No Hernia? No Thyroid Problems? No Hypothyroidism? No CVA? No Seizures? No Diabetes? No Renal Insuffiency? No End Stage Renal Disease? No UTI? No Stones? No BPH? No GB Disease: No Nephritic Syndrome? No Asplenia? No Hepatitis? No Sickle Cell Disease? No Arthritis? No Migraines? No Cataracts? No Glaucoma? No MRSA? No HIV? No TB? No Anxiety? No Depression? No Cancer? No More? 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 Respiratory denies cough, denies shortness of breath, denies wheezing Cardiovascular see HPI, denies chest pain, palpitations, denies syncope Gastrointestinal denies abdominal pain, denies diarrhea, denies vomiting Genitourinary see HPI. denies: dysuria, frequency, hesitancy, hematuria. Musculoskeletal denies back pain, denies joint pain, denies joint swelling, denies neck pain Skin denies rash Psychiatric/Neurological denies headache, denies seizure Physical Exam Vital Signs Vital Signs Date Time Temp Pulse Resp B/P Pulse O2 O2 Flow FiO2 Ox Delivery Rate 11/11 0014 99.1 70 18 131/92 99 11/10 2350 70 18 131/92 99 11/10 2302 99.1 77 18 128/83 98 11/10 2235 99.1 90 18 157/71 98 - WBC >12,000 or <4,000 or 10% bands? 2 or more SIRS Criteria Met? B/P:131/92 MAP:99 Creatinine >2.0? UA output<0.5ml/kg/hr for 2 hrs? Platelet count >100,000? Lactate >2.0mmol/1? INR >1.2 or PTT > than 60 sec? Evidence of Organ Dysfunction? Provider documented clinical suspician of infection? N Sepsis Criteria Count: 1 Sepsis Risk: Low Sepsis Risk General Appearance no apparent distress Eye Exam - bilateral eye PERRL, bilateral eye EOMI Ear, Nose, Throat normal ENT inspection Neck supple Respiratory Status No: respiratory distress. Cardiovascular regular rate/rhythm Extremities normal inspection Strength 4 Upper Ext (L), 4 Upper Ext (R), 4 Lower Ext (L), 4 Lower Ext (R) Neurologic alert, marketing development manager II-XII nml as tested, no motor/sensory deficits Reflexes Reflexes normal No Mental status normal mood/affect Skin intact Medical Decision Making LABS/Meds/Orders Pt receiving controlled substance in ED? No Results/Orders Laboratory Tests 11/10/162254: Creatine Kinase 143, CK-MB (CK-2) Rel Index 0.9, CK and CKMB Interp 1.3, Troponin I < 0.02 11/10/162254: Sodium 141, Potassium 3.9, Chloride 104, Carbon Dioxide 28, BUN 7, Creatinine 0.9, Estimated Creat Clear 114, Estimated GFR (MDRD) 78, Glucose 78, Calcium 9.5 , Total Bilirubin 0.4, AST 16, ALT 24, Alkaline Phosphatase 58, Total Protein 7.7, Albumin 4.0, Globulin 3.7 H, Albumin/Globulin Ratio 1.1, WBC 6.9, RBC 4.61 , Hgb 15.7, Hct 45.7, MCV 99.1 H, RDW 13.1, Plt Count 171, MPV 6.6 L, Gran % 68.3, Gran # 4.7, Lymphocytes % 23.1, Monocytes % 6.3, Eosinophils % 2.0, Basophils % 0.2, Lymphocytes # 1.6, Monocytes # 0.4, Eosinophils # 0.1, Basophils # 0.0, PUBS MCHC 34.5, MCH 34.1 H, Urine Color YELLOW, Urine Appearance CLEAR, Urine pH 7.0, Ur Specific [place] 1.015, Urine Protein NEGATIVE, Urine Ketones NEGATIVE, Urine Blood TRACE-LYSED, Urine Nitrate NEGATIVE, Urine Bilirubin NEGATIVE, Urine Urobilinogen 0.2, Ur Leukocyte Esterase 1+ H, Urine RBC OCC, Urine WBC 3-5, Ur Squamous Epith Cells 3-5, Urine Bacteria 1+, Urine Mucus OCC, Urine Glucose NEGATIVE Current Medication Orders Sig/Juju Start time Last Medication Dose Route Stop Time Status Admin Sodium Chloride 1,000 ML .STK-MED ONE 11/10 2335 DC IV Sodium Chloride 1,000 ML .Q1H1M 11/10 2300 DC 11/10 IV 11/11 0000 2300 Sodium Chloride 10 ML PRN PRN 11/10 2300 AC IV 11/11 2258 Sodium Chloride 1,000 ML .STK-MED ONE 11/10 2258 DC IV Orders Procedure Date/time Status CARDIAC ENZYMES 11/10 2322 Complete ELECTROCARDIOGRAM REQUEST 11/10 2244 Active CHEST(2 VIEWS-NOT PORTABLE) 11/10 2244 Active URINALYSIS/COMPLETE 11/10 2244 Complete URINE 11/10 2244 Complete COMPLETE METABOLIC PANEL 11/10 2244 Complete CBC WITH AUTO DIFF 11/10 2244 Complete 12 LEAD EKG-[facility] (INITIAL) 11/10 2226 Active CM/EKG CM/director of rehabilitation and wellness Rhythm Normal Sinus Rhythm EKG no evid. of ischemic chgs XRAY/CT/US XRAY/CT/US XRAY chest XR interpretation by reviewed by me Xray Results normal/NAD Departure Departure Time of Disposition 0036 Disposition Against Medical Advice Clinical Impression Primary Impression: Dizziness Condition STABLE Patient Instructions DI for Dizziness-Nonvertigo Additional Instructions see pcp for follow up Discharge Counseling Counseled pt/family regarding diagnosis, test results, follow up needs ED Critical Care Critical Care No at 0041
--- NOTE | 2016-11-11 00:03 | Emergency Room Report ---
History of Present Illness Time Seen by [id number] Presenting Problem in Triage Pt arrived:Walked Presenting Problem:C/O HEART RACING AND TUNNEL VISION. "FEELS LIKE IM GONNA PASS OUT" EARLIER TODAY HAD DIZZINESS AND VOMITING AT WORK AND HAD TO LEAVE. C/O DIARRHEA. 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 N Clinical Suspician of Infection? N Mental Status: 1 - Regular (Normal Baseline) Sepsis Risk:Low Sepsis Risk Have you (or family members/close friends) recently traveled outside the [place]? N If Yes, where/when: Have you had exposure to infectious disease within the past month? N TB? Other? 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 No Angina: No NC: No Hypertension? No Hyperlipidemia? No CHF? No DVT? No PE? No COPD? No Asthma? No Anemia? No GERD? No Gastric ulcers? No GI Bleed? No Hernia? No Thyroid Problems? No Hypothyroidism? No CVA? No Seizures? No Diabetes? No Renal Insuffiency? No End Stage Renal Disease? No UTI? No Stones? No BPH? No GB Disease: No Nephritic Syndrome? No Asplenia? No Hepatitis? No Sickle Cell Disease? No Arthritis? No Migraines? No Cataracts? No Glaucoma? No MRSA? No HIV? No TB? No Anxiety? No Depression? No Cancer? No More? 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 Respiratory denies cough, denies shortness of breath, denies wheezing Cardiovascular see HPI, denies chest pain, palpitations, denies syncope Gastrointestinal denies abdominal pain, denies diarrhea, denies vomiting Genitourinary see HPI. denies: dysuria, frequency, hesitancy, hematuria. Musculoskeletal denies back pain, denies joint pain, denies joint swelling, denies neck pain Skin denies rash Psychiatric/Neurological denies headache, denies seizure Physical Exam Vital Signs Vital Signs Date Time Temp Pulse Resp B/P Pulse O2 O2 Flow FiO2 Ox Delivery Rate 11/11 0014 99.1 70 18 131/92 99 11/10 2350 70 18 131/92 99 11/10 2302 99.1 77 18 128/83 98 11/10 2235 99.1 90 18 157/71 98 - WBC >12,000 or <4,000 or 10% bands? 2 or more SIRS Criteria Met? B/P:131/92 MAP:99 Creatinine >2.0? UA output<0.5ml/kg/hr for 2 hrs? Platelet count >100,000? Lactate >2.0mmol/1? INR >1.2 or PTT > than 60 sec? Evidence of Organ Dysfunction? Provider documented clinical suspician of infection? N Sepsis Criteria Count: 1 Sepsis Risk: Low Sepsis Risk General Appearance no apparent distress Eye Exam - bilateral eye PERRL, bilateral eye EOMI Ear, Nose, Throat normal ENT inspection Neck supple Respiratory Status No: respiratory distress. 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 No Results/Orders Laboratory Tests 11/10/162254: Creatine Kinase 143, CK-MB (CK-2) Rel Index 0.9, CK and CKMB Interp 1.3, Troponin I < 0.02 11/10/162254: Sodium 141, Potassium 3.9, Chloride 104, Carbon Dioxide 28, BUN 7, Creatinine 0.9, Estimated Creat Clear 114, Estimated GFR (MDRD) 78, Glucose 78, Calcium 9.5 , Total Bilirubin 0.4, AST 16, ALT 24, Alkaline Phosphatase 58, Total Protein 7.7, Albumin 4.0, Globulin 3.7 H, Albumin/Globulin Ratio 1.1, WBC 6.9, RBC 4.61 , Hgb 15.7, Hct 45.7, MCV 99.1 H, RDW 13.1, Plt Count 171, MPV 6.6 L, Gran % 68.3, Gran # 4.7, Lymphocytes % 23.1, Monocytes % 6.3, Eosinophils % 2.0, Basophils % 0.2, Lymphocytes # 1.6, Monocytes # 0.4, Eosinophils # 0.1, Basophils # 0.0, PUBS MCHC 34.5, MCH 34.1 H, Urine Color YELLOW, Urine Appearance CLEAR, Urine pH 7.0, Ur Specific [place] 1.015, Urine Protein NEGATIVE, Urine Ketones NEGATIVE, Urine Blood TRACE-LYSED, Urine Nitrate NEGATIVE, Urine Bilirubin NEGATIVE, Urine Urobilinogen 0.2, Ur Leukocyte Esterase 1+ H, Urine RBC OCC, Urine WBC 3-5, Ur Squamous Epith Cells 3-5, Urine Bacteria 1+, Urine Mucus OCC, Urine Glucose NEGATIVE Current Medication Orders Sig/Juju Start time Last Medication Dose Route Stop Time Status Admin Sodium Chloride 1,000 ML .STK-MED ONE 11/10 2335 DC IV Sodium Chloride 1,000 ML .Q1H1M 11/10 2300 DC 11/10 IV 11/11 0000 2300 Sodium Chloride 10 ML PRN PRN 11/10 2300 AC IV 11/11 2258 Sodium Chloride 1,000 ML .STK-MED ONE 11/10 2258 DC IV Orders Procedure Date/time Status CARDIAC ENZYMES 11/10 2322 Complete ELECTROCARDIOGRAM REQUEST 11/10 2244 Active CHEST(2 VIEWS-NOT PORTABLE) 11/10 2244 Active URINALYSIS/COMPLETE 11/10 2244 Complete URINE 11/10 2244 Complete COMPLETE METABOLIC PANEL 11/10 2244 Complete CBC WITH AUTO DIFF 11/10 2244 Complete 12 LEAD EKG-[facility] (INITIAL) 11/10 2226 Active 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 of ischemic chgs XRAY/CT/US XRAY/CT/US XRAY chest XR interpretation by reviewed by me Xray Results normal/NAD Departure Departure Time of Disposition 0036 Disposition Against Medical Advice Clinical Impression Primary Impression: Dizziness Condition STABLE Patient Instructions DI for Dizziness-Nonvertigo Additional Instructions see pcp for follow up Discharge Counseling Counseled pt/family regarding diagnosis, test results, follow up needs ED Critical Care Critical Care No at 0041
[2016-11-11 00:14] VITALS: BP 131/92
--- NOTE | 2016-11-11 05:34 | RADIOLOGY REPORT PS360 ---
CHEST(2 VIEWS-NOT PORTABLE) HISTORY: Tachycardia C/O HEART RACING ORDERING PHYSICIAN: Tamika Gallagher MD PATIENT AGE: 21 years COMPARISON: None available FINDINGS: The cardiomediastinal silhouette and pulmonary vascularity are within normal limits. The lungs are clear without infiltrates, suspicious nodules, or pleural effusions. No acute bony abnormalities. IMPRESSION: Negative chest, no acute finding
== END 2016-11-11 00:53 | disposition left against medical advice (07) ==
LOC: ER 22:24
PROVIDERS: Emergency Medicine
DX: R42 Dizziness and giddiness (principal); Z72.0 Tobacco use